=== PATIENT | female | born 1980 | race Caucasian/White ===

== ENCOUNTER 2018-09-23 11:27 | Observation (INO) | payer BC ==
[2018-09-23 12:08] LABS: CHLORIDE,CL 103 mmol/L (98-107); SODIUM,NA 137 mmol/L (136-145)
[2018-09-23] MEDS ORDERED: Ketorolac 60 MG/2 ML SDV IM ONE (12:21)
--- NOTE | 2018-09-23 12:40 | EDM.PDOC ---
ED HPI GENERAL MEDICAL PROBLEM - General Chief Complaint: General Stated Complaint: left flank/rib sharp pain Time Seen by Provider: 09/23/18 12:04 Source of Information: Reports: Patient History Limitations: Reports: No Limitations - History of Present Illness INITIAL COMMENTS - FREE TEXT/NARRATIVE: Patient presents to ER with complaint of left sided back pain. Points to left posterior lower ribs, below left scapula, as site of pain. Slightly worse with deep inspiration. Changing position/moving arms/sitting up from lying down has no effect on the pain. Eating/drinking also has no effect. Describes pain as "hot" and constant. No radiation of pain. Has had on/off mild discomfort in this same area for a year or more, at same time she has been having difficulty urinating easily. Feels like she sometimes has to force the urine out. Had US study of bladder that shows bladder wall thickening per patient, also had unremarkable noncontrast abdominal CT yesterday. Labs/UA yesterday unremarkable except for mild elevation of WBC. Patient has not felt like usual self for 5 days. Says she feels like she is sick. Mild temp elevation yesterday around 100. Feels hot at times. Increased general fatigue. ROS: No acute HEENT changes. She reports frequent sinus congestion which is chronic issue. No headache. No other pain complaints. Resp: no acute respiratory changes such as cough or shortness of breath. Patient is a smoker. Feels wheezy sometimes. CV: no chest pain/palpitations/syncope GI: denies abdominal pain/nausea/emesis. Constipated the last few days but had BM. Has chronic issues with IBS/periodic constipation. : no acute changes from baseline. Denies hematuria/frequency. Hx of kidney stones in past. MS: noted nocturnal muscle cramps lower extremities the past few days. Neuro: no acute changes. Has taken Ibuprofen and Tylenol without any improvement of the pain. Pain is at an 8 currently. Is worse today than yesterday. Treatments [employer]PECT[employer] P[employer]ER: Reports: Acetaminophen, NSAIDS Left Flank Pain Score (Numeric/FACES): 8 - Related Data Allergies Allergy/AdvReac Type Severity Reaction Status Date / Time codeine Allergy Hives Verified 09/23/18 11:28 morphine Allergy Hives Verified 09/23/18 11:28 Home Meds: Home Meds Acetaminophen [Tylenol] 800 mg PO Q4H 09/23/18 [History] Cetirizine HCl [Zyrtec] 10 mg PO DAILY 09/23/18 [History] Fluticasone Propionate [Flonase Allergy Relief] 2 spray AMIRAH DAILY 09/23/18 [ History] Ibuprofen 800 mg PO Q6H 09/23/18 [History] Past Medical History HEENT History: Reports: Other (See Below) (chronic sinus issues) Gastrointestinal History: Reports: Irritable Bowel Syndrome Genitourinary History: Reports: Renal Calculus, Other (See Below) (Feels like she sometimes has to force self to urinate/hard to urinate) Immunologic History: Reports: Other (See Below) (suspected environmental/food intolerances) Social & Family History - Tobacco Use Smoking Status *Q: Current Every Day Smoker Years of Tobacco use: 20 Packs/Tins Daily: 0.6 Second Hand Smoke Exposure: No - Caffeine Use Caffeine Use: Reports: Soda - Alcohol Use Days Per Week of Alcohol Use: 0 - Recreational Drug Use Recreational Drug Use: No ED ROS GENERAL - Review of Systems Review Of Systems: ROS reveals no pertinent complaints other than HPI. ED EXAM, GENERAL - Physical Exam Exam: See Below Exam Limited By: No Limitations General Appearance: Alert, WD/WN, Moderate Distress Eye Exam: Bilateral Eye: EOMI, PERRL Ears: Normal External Exam Nose: No: Nasal Deformity, Nasal Swelling Throat/Mouth: Normal Lips, Normal Voice, No Airway Compromise Head: Atraumatic, Normocephalic Neck: Normal Inspection, Supple, Non-Tender, Full Range of Motion Respiratory/Chest: No Respiratory Distress, Lungs Clear, Normal Breath Sounds, No Accessory Muscle Use, Other (tenderness noted focally with palpation of soft tissue left posterior ribs, below and slightly lateral to left scapula/mid scapular line. Palpation reproduces patient's pain complaint) Cardiovascular: Regular Rate, Rhythm, No Edema, No Murmur GI/Abdominal: Normal Bowel Sounds, Soft, Non-Tender, No Distention (Female) Exam: Deferred Rectal (Female) Exam: Deferred Back Exam: No: CVA Tenderness (L), CVA Tenderness (R), Muscle Spasm, Vertebral Tenderness Extremities: Normal Inspection, Normal Range of Motion, Non-Tender, No Pedal Edema, Normal Capillary Refill Neurological: Alert, Oriented, Normal Cognition, Normal Gait, Slow to Respond Psychiatric: Anxious Skin Exam: Warm, Dry, Intact, Normal Color, No Rash Course - Vital Signs Last Recorded V/S: Last Vital Signs Temp 37.6 C 09/23/18 11:32 Pulse 72 09/23/18 11:51 Resp 15 09/23/18 11:51 BP 120/80 09/23/18 11:51 Pulse Ox 99 09/23/18 11:51 - Orders/Labs/Meds Orders: Active Orders 24 hr Category Date Time Status Chest 2V [CR] Stat Exams 09/23/18 12:23 Taken Chest w Cont [CT] Stat Exams 09/23/18 13:17 Taken Sodium Chloride 0.9% [Saline Flush] Med 09/23/18 12:45 Active 10 ml FLUSH ASDIRECTED PRN Saline Lock Insert [OM.PC] Routine Oth 09/23/18 12:45 Ordered Medication Orders Sodium Chloride (Saline Flush) 10 ml FLUSH ASDIRECTED PRN PRN Reason: Keep Vein Open Labs: Laboratory Tests 09/23/18 09/23/18 09/23/18 Range/Units 11:45 11:49 11:49 WBC 14.9 H (4.0-10.2) K/uL RBC 4.82 (3.77-5.09) M/uL Hgb 15.7 H (11.7-15.5) g/dL Hct 44.4 (34.0-46.0) % MCV 92.1 (84.0-98.0) fL MCH 32.6 (28.2-33.3) pg MCHC 35.4 (31.7-36.0) g/dL RDW 12.6 (11.2-14.1) % Plt Count 227 (150-350) K/uL Neut % (Auto) 76.2 (45.0-80.0) % Lymph % (Auto) 17.3 (10.0-50.0) % [place] % (Auto) 5.6 (2.0-14.0) % Eos % (Auto) 0.6 (0.0-5.0) % Baso % (Auto) 0.3 (0.0-2.0) % Neut # (Auto) 11.32 H (1.40-7.00) K/uL Lymph # (Auto) 2.58 (0.50-3.50) K/uL [place] # (Auto) 0.84 (0.00-1.00) K/uL Eos # (Auto) 0.09 (0.00-0.50) K/uL Baso # (Auto) 0.05 (0.00-0.20) K/uL D-Dimer, Quantitative < 100 (0-400) ng/mL Sodium 137 (136-145) mmol/L Potassium 3.9 (3.5-5.1) mmol/L Chloride 103 (98-107) mmol/L Carbon Dioxide 22.1 (21.0-32.0) mmol/L BUN 13 (7-18) mg/dL Creatinine 0.69 (0.51-1.17) mg/dL Est Cr Clr Drug Dosing 97.52 mL/min Estimated GFR (MDRD) > 60 mL/min Glucose 101 (74-106) mg/dL Calcium 8.5 (8.5-10.1) mg/dL Magnesium (1.8-2.4) mg/dL Total Bilirubin 0.5 (0.2-1.0) mg/dL AST 16 (15-37) U/L ALT 31 (12-78) U/L Alkaline Phosphatase 65 (46-116) IU/L Total Protein 7.0 (6.4-8.2) g/dL Albumin 3.6 (3.4-5.0) g/dL Specimen Type Urine Color Urine Appearance Urine pH (5.0-9.0) Ur Specific Coulter (1.005-1.030) Urine Protein (NEGATIVE) mg/dL Urine Glucose (UA) (NEGATIVE) mg/dL Urine Ketones (NEGATIVE) mg/dL Urine Occult Blood (NEGATIVE) Urine Nitrite (NEGATIVE) Urine Bilirubin (NEGATIVE) Urine Urobilinogen (0.2-1.0) E.U./dL Ur Leukocyte Esterase (NEGATIVE) Urine RBC /HPF Urine WBC /HPF Ur Epithelial Cells /LPF Urine Bacteria (NONE TO FEW) /HPF Urine HCG, Qual 09/23/18 09/23/18 09/23/18 Range/Units 11:50 11:50 12:41 WBC (4.0-10.2) K/uL RBC (3.77-5.09) M/uL Hgb (11.7-15.5) g/dL Hct (34.0-46.0) % MCV (84.0-98.0) fL MCH (28.2-33.3) pg MCHC (31.7-36.0) g/dL RDW (11.2-14.1) % Plt Count (150-350) K/uL Neut % (Auto) (45.0-80.0) % Lymph % (Auto) (10.0-50.0) % [place] % (Auto) (2.0-14.0) % Eos % (Auto) (0.0-5.0) % Baso % (Auto) (0.0-2.0) % Neut # (Auto) (1.40-7.00) K/uL Lymph # (Auto) (0.50-3.50) K/uL [place] # (Auto) (0.00-1.00) K/uL Eos # (Auto) (0.00-0.50) K/uL Baso # (Auto) (0.00-0.20) K/uL D-Dimer, Quantitative (0-400) ng/mL Sodium (136-145) mmol/L Potassium (3.5-5.1) mmol/L Chloride (98-107) mmol/L Carbon Dioxide (21.0-32.0) mmol/L BUN (7-18) mg/dL Creatinine (0.51-1.17) mg/dL Est Cr Clr Drug Dosing mL/min Estimated GFR (MDRD) mL/min Glucose (74-106) mg/dL Calcium (8.5-10.1) mg/dL Magnesium 1.6 L (1.8-2.4) mg/dL Total Bilirubin (0.2-1.0) mg/dL AST (15-37) U/L ALT (12-78) U/L Alkaline Phosphatase (46-116) IU/L Total Protein (6.4-8.2) g/dL Albumin (3.4-5.0) g/dL Specimen Type Urincc Urine Color Light yellow Urine Appearance Clear Urine pH 6.0 (5.0-9.0) Ur Specific Coulter <= 1.005 (1.005-1.030) Urine Protein Negative (NEGATIVE) mg/dL Urine Glucose (UA) Negative (NEGATIVE) mg/dL Urine Ketones Negative (NEGATIVE) mg/dL Urine Occult Blood Trace-intact H (NEGATIVE) Urine Nitrite Negative (NEGATIVE) Urine Bilirubin Negative (NEGATIVE) Urine Urobilinogen 0.2 (0.2-1.0) E.U./dL Ur Leukocyte Esterase Negative (NEGATIVE) Urine RBC 0-5 /HPF Urine WBC 0-5 /HPF Ur Epithelial Cells Rare /LPF Urine Bacteria Rare (NONE TO FEW) /HPF Urine HCG, Qual Negative Meds: Medications Generic Name Dose Route Start Last Admin Trade Name Freq PRN Reason Stop Dose Admin Sodium Chloride 10 ml 09/23/18 12:45 Saline Flush FLUSH ASDIRECTED PRN Keep Vein Open Discontinued Medications Generic Name Dose Route Start Last Admin Trade Name Freq PRN Reason Stop Dose Admin Fentanyl 100 mcg 09/23/18 12:45 09/23/18 13:10 Sublimaze IVPUSH 09/23/18 12:46 100 mcg ONETIME ONE Administration Sodium Chloride 1,000 mls @ 999 mls/hr 09/23/18 13:06 09/23/18 15:41 Normal Saline IV 09/23/18 14:06 999 mls/hr .BOLUS ONE Administration Iopamidol 100 ml 09/23/18 13:39 Isovue-300 (61%) IVPUSH 09/23/18 13:40 ONETIME ONE Ketorolac Tromethamine 60 mg 09/23/18 12:21 09/23/18 12:30 Toradol IM 09/23/18 12:22 60 mg ONETIME ONE Administration Lorazepam 0.5 mg 09/23/18 15:30 09/23/18 15:37 Ativan PO 09/23/18 15:31 0.5 mg ONETIME ONE Administration Magnesium Sulfate/Dextrose 1 gm 09/23/18 12:59 09/23/18 13:16 Magnesium 1 Gm In D5w 100 Ml IV 09/23/18 13:00 1 gm ONETIME ONE Administration Magnesium Sulfate/Dextrose 1 gm 09/23/18 15:26 09/23/18 16:02 Magnesium 1 Gm In D5w 100 Ml IV 09/23/18 15:27 1 gm ONETIME ONE Administration Ondansetron HCl 4 mg 09/23/18 12:45 09/23/18 13:10 Zofran IVPUSH 09/23/18 12:46 4 mg ONETIME ONE Administration Tramadol HCl 100 mg 09/23/18 15:26 09/23/18 15:39 Ultram PO 09/23/18 15:27 100 mg ONETIME ONE Administration - Radiology Interpretation Free Text/Narrative:: Plain chest film appeared unremarkable. CT Results Date: 09/23/18 CT Results Time: 16:24 (Radiology notes changes consistent with bronchiolitis mostly in upper lobes noted. No pneumonia or other acute processes noted. ) - Re-Assessments/Exams Free Text/Narrative Re-Assessment/Exam: 09/23/18 16:33 Patient received Toradol/Fentanyl for her pain. chest xray unremarkable. Given the magnitude of her pain complaint, reported low grade fever, and elevated WBC the possibility of a chest CT was discussed. CBC/Chem/UA/HCG/DDimer unremarkable for the most part other than low Magnesium. Hypomagnesemia would be a factor contributing to patient's complaints of muscle cramps and fatigue. It has also been linked to back pain. While discussing the possible symptoms of low Mg patient volunteered that she had felt on/off numbness of both arms for several weeks, which she had not said during ROS. This also can be linked with low Mg. Magnesium replacement IV initiated. Patient also wished to have CT of chest performed. Prolonged course of time before CT reading was relayed by Radiologist. Patient's pain improved. Tramadol also given. Decision to admit Obs overnight. Will give additional Magnesium and recheck patient's level in AM. Cannot rule out other possible etiologies for patient's spectrum of complaints. She did say that she has had discomfort in this same area of her back for over a year. May need to have MRI to rule out radiculopathy. Departure - Departure Time of Disposition: 16:42 Disposition: Refer to Observation Condition: Good Clinical Impression: Hypomagnesemia, Posterior chest pain - Discharge Information *PRESCRIPTION DRUG MONITORING PROGRAM REVIEWED*: Not Applicable *COPY OF PRESCRIPTION DRUG MONITORING REPORT IN PATIENT [facility]: Not Applicable - Problem List & Annotations (1) Posterior chest pain SNOMED Code(s): 33383779263288 Code(s): R07.89 - OTHER CHEST PAIN Status: Acute Priority: High Current Visit: Yes Onset Date: Unknown Annotation/Comment:: Exacerbation of left sided posterior back pain/near inferior-lateral border of scapula. Signficant worsening over the last few days. Has noted it on/off for a year or more but much more subtle discomfort at those times. Movement does not make pain worse, no history of injury. Able to localize pain with palpation. Suspect musc-sket etiology. Significantly low in Magnesium, which can contribute to back pain. Negative chest CT today. Mild elevation in WBC but no obvious infection identified. May reflect demargination secondary to pain response. Admitted observation for pain control and Mag replacement. (2) Hypomagnesemia SNOMED Code(s): 943834671 Code(s): E83.42 - HYPOMAGNESEMIA Status: Acute Priority: High Current Visit: Yes Annotation/Comment:: Suspect chronic low Magnesium. Mag replacement IV ordered. Recheck level in AM. Low mag could be linked with patient's complaints of fatigue, leg cramps, back pain, and arm paresthesias. - Problem List Review Problem List Initiated/Reviewed/Updated: Yes - My Orders Last 24 Hours: My Active Orders 09/23/18 12:23 Chest 2V [CR] Stat 09/23/18 12:45 Sodium Chloride 0.9% [Saline Flush] 10 ml FLUSH ASDIRECTED PRN Saline Lock Insert [OM.PC] Routine 09/23/18 13:17 Chest w Cont [CT] Stat - Assessment/Plan Admission H&P: Please use this note as an admission H&P Last 24 Hours: My Active Orders 09/23/18 12:23 Chest 2V [CR] Stat 09/23/18 12:45 Sodium Chloride 0.9% [Saline Flush] 10 ml FLUSH ASDIRECTED PRN Saline Lock Insert [OM.PC] Routine 09/23/18 13:17 Chest w Cont [CT] Stat Assessment:: as above Plan: as above. Anticipate 1-2 day stay depending on patient's clinical course/ response to interventions.
[2018-09-23] MEDS ORDERED: fentaNYL 100 MCG/2 ML SDV IVPUSH ONE ×2 (12:45→16:57)
[2018-09-23] MEDS ORDERED: Ondansetron 4 MG/2 ML SDV IVPUSH ONE (12:45)
[2018-09-23] MEDS ORDERED: Sodium Chloride 0.9% 1,000 ML IV ONE (13:06)
[2018-09-23] MEDS ORDERED: Iopamidol 612 MG/ML 100 ML Bottle IVPUSH ONE (13:39)
[2018-09-23] MEDS ORDERED: traMADol 50 MG Tab PO ONE (15:26)
[2018-09-23] MEDS ORDERED: LORazepam 0.5 MG Tab PO ONE (15:30)
[2018-09-23] MEDS ORDERED: Pantoprazole 40 MG Vial IVPUSH ONE (16:58)
[2018-09-23] MEDS ORDERED: Acetaminophen 325 MG Tab PO PRN (17:00)
[2018-09-23] MEDS ORDERED: Ketorolac 30 MG/ML SDV IVPUSH SCH (17:00)
[2018-09-23] MEDS ORDERED: traMADol 50 MG Tab PO PRN (17:00)
[2018-09-23] MEDS: Sodium Chloride 0.9% 10 ML Syringe FLUSH PRN ×4 (17:14→23:23)
[2018-09-23] MEDS: Ketorolac 30 MG/ML SDV IVPUSH SCH (19:08)
[2018-09-23] MEDS: Nicotine 14 MG/24 Hr Patch TRDERM SCH (20:41)
[2018-09-23] MEDS ORDERED: Diazepam 5 MG Tab PO ONE (21:50)
[2018-09-23] MEDS ORDERED: Ondansetron 4 MG/2 ML SDV IVPUSH PRN (22:40)
[2018-09-23] MEDS: fentaNYL 100 MCG/2 ML SDV IVPUSH PRN (23:22)
[2018-09-24] MEDS: Ketorolac 30 MG/ML SDV IVPUSH SCH ×4 (01:04→17:06)
[2018-09-24] MEDS: Sodium Chloride 0.9% 10 ML Syringe FLUSH PRN ×6 (06:32→17:08)
[2018-09-24] MEDS: fentaNYL 100 MCG/2 ML SDV IVPUSH PRN (07:57)
[2018-09-24] MEDS ORDERED: Nicotine 14 MG/24 Hr Patch TRDERM SCH (08:00)
[2018-09-24 08:08] LABS: CHLORIDE,CL 107 mmol/L (98-107); SODIUM,NA 139 mmol/L (136-145)
--- NOTE | 2018-09-24 09:24 | PCM.PN ---
- General Info Date of Service: 09/24/18 Admission Dx/Problem (Free Text): 1. Atypical chest wall pain Functional Status: Reports: Pain Controlled, Tolerating Diet, Ambulating, Urinating, New Symptoms (Abdominal cramping as below), Incentive Spirometry Pain Score: 8 - Review of Systems General: Reports: No Symptoms. Denies: Fever, Weakness, Fatigue, Malaise, Chills, Night Sweats, Appetite HEENT: Reports: Post Nasal Drip, Sinus Congestion, Rhinitis. Denies: Dysphasia , Ear Pain, Eye Pain, Sore Throat, Visual Changes Pulmonary: Reports: Pleuritic Chest Pain (Left posterior), Cough, Wheezing. Denies: Shortness of Breath, Sputum, Hemoptysis Cardiovascular: Reports: Chest Pain (As above). Denies: Palpitations, Dyspnea on Exertion, Orthopnea, PND, Edema, Lightheadedness Gastrointestinal: Reports: Abdominal Pain (Abdominal cramping), Constipation. Denies: Decreased Appetite, Diarrhea, Difficulty Swallowing, Flatus, Hematochezia, Melena, Nausea, Vomiting Genitourinary: Reports: Other (Difficulty with urination- long-term). Denies: Dysuria, Frequency, Burning, Pain, Urgency, Incontinence, Hematuria, Retention, Flank Pain Musculoskeletal: Reports: No Symptoms. Denies: Neck Pain, Shoulder Pain, Arm Pain, Back Pain, Leg Pain Skin: Reports: No Symptoms. Denies: Diaphoresis, Pruritis, Rash Neurological: Reports: No Symptoms. Denies: Confusion, Dizziness, Headache, Numbness, Paresthesia, Tingling, Weakness Psychiatric: Reports: Depression, Anxiety. Denies: Confusion, Agitation, Hallucinations, Suicidal Ideation - Patient Data Vitals - Most Recent: Last Vital Signs Temp 36.6 C 09/24/18 06:00 Pulse 62 09/24/18 06:00 Resp 16 09/24/18 06:00 BP 112/61 09/24/18 06:00 Pulse Ox 99 09/24/18 06:00 Vital Signs - 24 hr 09/23/18 09/23/18 09/23/18 11:32 11:51 12:20 Temperature [ Oral] Temperature [ 37.6 C Temporal] Pulse, 87 72 72 Peripheral [ Left Pulse Oximetry] Respiratory 18 15 16 Rate Blood Pressure 137/79 120/80 106/70 [Left Upper Arm ] O2 Sat by Pulse 100 99 99 Oximetry 09/23/18 09/23/18 09/23/18 12:50 13:20 14:00 Temperature [ Oral] Temperature [ Temporal] Pulse, 82 73 72 Peripheral [ Left Pulse Oximetry] Respiratory 16 16 16 Rate Blood Pressure 104/69 110/69 111/71 [Left Upper Arm ] O2 Sat by Pulse 99 99 98 Oximetry 09/23/18 09/23/18 09/24/18 15:00 16:00 00:00 Temperature [ Oral] Temperature [ 37.1 C 36.7 C Temporal] Pulse, 78 78 64 Peripheral [ Left Pulse Oximetry] Respiratory 14 16 16 Rate Blood Pressure 109/78 109/69 127/79 [Left Upper Arm ] O2 Sat by Pulse 98 99 100 Oximetry 09/24/18 06:00 Temperature [ 36.6 C Oral] Temperature [ Temporal] Pulse, 62 Peripheral [ Left Pulse Oximetry] Respiratory 16 Rate Blood Pressure 112/61 [Left Upper Arm ] O2 Sat by Pulse 99 Oximetry Weight - Most Recent: 82.327 kg I&O - Last 24 Hours: Intake & Output 09/23/18 09/24/18 09/24/18 22:59 06:59 14:59 Intake Total 300 120 Output Total 150 150 Balance 150 -30 Imaging Impressions - Last 24 Hours: Acute abdominal x-rays shows moderate pulmonary obstructive disease with no pulmonary infiltrates, cardiomegaly, CHF, or pneumothorax. Note moderate to severe diffuse stool with nonspecific bowel gaseous pattern with no fluid levels , free air, ileus, or obstruction. No evidence of significant intra-abdominal calcifications. Lab Results Last 24 Hours: Laboratory Results - last 24 hr 09/23/18 09/23/18 09/23/18 Range/Units 11:45 11:45 11:49 WBC 14.9 H (4.0-10.2) K/uL RBC 4.82 (3.77-5.09) M/uL Hgb 15.7 H (11.7-15.5) g/dL Hct 44.4 (34.0-46.0) % MCV 92.1 (84.0-98.0) fL MCH 32.6 (28.2-33.3) pg MCHC 35.4 (31.7-36.0) g/dL RDW 12.6 (11.2-14.1) % Plt Count 227 (150-350) K/uL Neut % (Auto) 76.2 (45.0-80.0) % Lymph % (Auto) 17.3 (10.0-50.0) % [place] % (Auto) 5.6 (2.0-14.0) % Eos % (Auto) 0.6 (0.0-5.0) % Baso % (Auto) 0.3 (0.0-2.0) % Neut # (Auto) 11.32 H (1.40-7.00) K/uL Lymph # (Auto) 2.58 (0.50-3.50) K/uL [place] # (Auto) 0.84 (0.00-1.00) K/uL Eos # (Auto) 0.09 (0.00-0.50) K/uL Baso # (Auto) 0.05 (0.00-0.20) K/uL D-Dimer, Quantitative < 100 (0-400) ng/mL Sodium (136-145) mmol/L Potassium (3.5-5.1) mmol/L Chloride (98-107) mmol/L Carbon Dioxide (21.0-32.0) mmol/L BUN (7-18) mg/dL Creatinine (0.51-1.17) mg/dL Est Cr Clr Drug Dosing mL/min Estimated GFR (MDRD) mL/min Glucose (74-106) mg/dL Calcium (8.5-10.1) mg/dL Magnesium (1.8-2.4) mg/dL Total Bilirubin (0.2-1.0) mg/dL AST (15-37) U/L ALT (12-78) U/L Alkaline Phosphatase (46-116) IU/L Troponin I 0.000 (0.000-0.056) ng/mL Total Protein (6.4-8.2) g/dL Albumin (3.4-5.0) g/dL Vitamin B12 (193-986) pg/mL Folate (8.6-58.9) ng/mL Specimen Type Urine Color Urine Appearance Urine pH (5.0-9.0) Ur Specific [place] (1.005-1.030) Urine Protein (NEGATIVE) mg/dL Urine Glucose (UA) (NEGATIVE) mg/dL Urine Ketones (NEGATIVE) mg/dL Urine Occult Blood (NEGATIVE) Urine Nitrite (NEGATIVE) Urine Bilirubin (NEGATIVE) Urine Urobilinogen (0.2-1.0) E.U./dL Ur Leukocyte Esterase (NEGATIVE) Urine RBC /HPF Urine WBC /HPF Ur Epithelial Cells /LPF Urine Bacteria (NONE TO FEW) /HPF Urine HCG, Qual Urine Opiates Screen (NEGATIVE) Urine Methadone Screen (NEGATIVE) U Acetaminophen Screen (NEGATIVE) Ur Barbiturates Screen (NEGATIVE) Ur Tricyclics Screen (NEGATIVE) Ur Phencyclidine Scrn (NEGATIVE) Ur Amphetamine Screen (NEGATIVE) U Methamphetamines Scrn (NEGATIVE) U Benzodiazepines Scrn (NEGATIVE) U Cocaine Metab Screen (NEGATIVE) U Marijuana (THC) Screen (NEGATIVE) 09/23/18 09/23/18 09/23/18 Range/Units 11:49 11:50 11:50 WBC (4.0-10.2) K/uL RBC (3.77-5.09) M/uL Hgb (11.7-15.5) g/dL Hct (34.0-46.0) % MCV (84.0-98.0) fL MCH (28.2-33.3) pg MCHC (31.7-36.0) g/dL RDW (11.2-14.1) % Plt Count (150-350) K/uL Neut % (Auto) (45.0-80.0) % Lymph % (Auto) (10.0-50.0) % [place] % (Auto) (2.0-14.0) % Eos % (Auto) (0.0-5.0) % Baso % (Auto) (0.0-2.0) % Neut # (Auto) (1.40-7.00) K/uL Lymph # (Auto) (0.50-3.50) K/uL [place] # (Auto) (0.00-1.00) K/uL Eos # (Auto) (0.00-0.50) K/uL Baso # (Auto) (0.00-0.20) K/uL D-Dimer, Quantitative (0-400) ng/mL Sodium 137 (136-145) mmol/L Potassium 3.9 (3.5-5.1) mmol/L Chloride 103 (98-107) mmol/L Carbon Dioxide 22.1 (21.0-32.0) mmol/L BUN 13 (7-18) mg/dL Creatinine 0.69 (0.51-1.17) mg/dL Est Cr Clr Drug Dosing 97.52 mL/min Estimated GFR (MDRD) > 60 mL/min Glucose 101 (74-106) mg/dL Calcium 8.5 (8.5-10.1) mg/dL Magnesium 1.6 L (1.8-2.4) mg/dL Total Bilirubin 0.5 (0.2-1.0) mg/dL AST 16 (15-37) U/L ALT 31 (12-78) U/L Alkaline Phosphatase 65 (46-116) IU/L Troponin I (0.000-0.056) ng/mL Total Protein 7.0 (6.4-8.2) g/dL Albumin 3.6 (3.4-5.0) g/dL Vitamin B12 (193-986) pg/mL Folate (8.6-58.9) ng/mL Specimen Type Urincc Urine Color Light yellow Urine Appearance Clear Urine pH 6.0 (5.0-9.0) Ur Specific [place] <= 1.005 (1.005-1.030) Urine Protein Negative (NEGATIVE) mg/dL Urine Glucose (UA) Negative (NEGATIVE) mg/dL Urine Ketones Negative (NEGATIVE) mg/dL Urine Occult Blood Trace-intact H (NEGATIVE) Urine Nitrite Negative (NEGATIVE) Urine Bilirubin Negative (NEGATIVE) Urine Urobilinogen 0.2 (0.2-1.0) E.U./dL Ur Leukocyte Esterase Negative (NEGATIVE) Urine RBC 0-5 /HPF Urine WBC 0-5 /HPF Ur Epithelial Cells Rare /LPF Urine Bacteria Rare (NONE TO FEW) /HPF Urine HCG, Qual Urine Opiates Screen (NEGATIVE) Urine Methadone Screen (NEGATIVE) U Acetaminophen Screen (NEGATIVE) Ur Barbiturates Screen (NEGATIVE) Ur Tricyclics Screen (NEGATIVE) Ur Phencyclidine Scrn (NEGATIVE) Ur Amphetamine Screen (NEGATIVE) U Methamphetamines Scrn (NEGATIVE) U Benzodiazepines Scrn (NEGATIVE) U Cocaine Metab Screen (NEGATIVE) U Marijuana (THC) Screen (NEGATIVE) 09/23/18 09/23/18 09/24/18 Range/Units 12:41 22:41 00:40 WBC (4.0-10.2) K/uL RBC (3.77-5.09) M/uL Hgb (11.7-15.5) g/dL Hct (34.0-46.0) % MCV (84.0-98.0) fL MCH (28.2-33.3) pg MCHC (31.7-36.0) g/dL RDW (11.2-14.1) % Plt Count (150-350) K/uL Neut % (Auto) (45.0-80.0) % Lymph % (Auto) (10.0-50.0) % [place] % (Auto) (2.0-14.0) % Eos % (Auto) (0.0-5.0) % Baso % (Auto) (0.0-2.0) % Neut # (Auto) (1.40-7.00) K/uL Lymph # (Auto) (0.50-3.50) K/uL [place] # (Auto) (0.00-1.00) K/uL Eos # (Auto) (0.00-0.50) K/uL Baso # (Auto) (0.00-0.20) K/uL D-Dimer, Quantitative (0-400) ng/mL Sodium (136-145) mmol/L Potassium (3.5-5.1) mmol/L Chloride (98-107) mmol/L Carbon Dioxide (21.0-32.0) mmol/L BUN (7-18) mg/dL Creatinine (0.51-1.17) mg/dL Est Cr Clr Drug Dosing mL/min Estimated GFR (MDRD) mL/min Glucose (74-106) mg/dL Calcium (8.5-10.1) mg/dL Magnesium (1.8-2.4) mg/dL Total Bilirubin (0.2-1.0) mg/dL AST (15-37) U/L ALT (12-78) U/L Alkaline Phosphatase (46-116) IU/L Troponin I (0.000-0.056) ng/mL Total Protein (6.4-8.2) g/dL Albumin (3.4-5.0) g/dL Vitamin B12 (193-986) pg/mL Folate (8.6-58.9) ng/mL Specimen Type Urinvoid Urine Color Yellow Urine Appearance Clear Urine pH 5.5 (5.0-9.0) Ur Specific [place] 1.025 (1.005-1.030) Urine Protein Negative (NEGATIVE) mg/dL Urine Glucose (UA) Negative (NEGATIVE) mg/dL Urine Ketones Negative (NEGATIVE) mg/dL Urine Occult Blood Trace-lysed H (NEGATIVE) Urine Nitrite Negative (NEGATIVE) Urine Bilirubin Negative (NEGATIVE) Urine Urobilinogen 0.2 (0.2-1.0) E.U./dL Ur Leukocyte Esterase Negative (NEGATIVE) Urine RBC Not seen /HPF Urine WBC Not seen /HPF Ur Epithelial Cells Rare /LPF Urine Bacteria Rare (NONE TO FEW) /HPF Urine HCG, Qual Negative Urine Opiates Screen Negative (NEGATIVE) Urine Methadone Screen Negative (NEGATIVE) U Acetaminophen Screen Negative (NEGATIVE) Ur Barbiturates Screen Negative (NEGATIVE) Ur Tricyclics Screen Negative (NEGATIVE) Ur Phencyclidine Scrn Negative (NEGATIVE) Ur Amphetamine Screen Negative (NEGATIVE) U Methamphetamines Scrn Negative (NEGATIVE) U Benzodiazepines Scrn Negative (NEGATIVE) U Cocaine Metab Screen Negative (NEGATIVE) U Marijuana (THC) Screen Negative (NEGATIVE) 09/24/18 09/24/18 Range/Units 07:15 07:15 WBC 10.9 H (4.0-10.2) K/uL RBC 3.97 (3.77-5.09) M/uL Hgb 12.8 D (11.7-15.5) g/dL Hct 37.8 (34.0-46.0) % MCV 95.2 D (84.0-98.0) fL MCH 32.2 (28.2-33.3) pg MCHC 33.9 (31.7-36.0) g/dL RDW 12.8 (11.2-14.1) % Plt Count 186 (150-350) K/uL Neut % (Auto) 56.0 (45.0-80.0) % Lymph % (Auto) 33.4 (10.0-50.0) % [place] % (Auto) 7.6 (2.0-14.0) % Eos % (Auto) 2.5 (0.0-5.0) % Baso % (Auto) 0.5 (0.0-2.0) % Neut # (Auto) 6.08 (1.40-7.00) K/uL Lymph # (Auto) 3.62 H (0.50-3.50) K/uL [place] # (Auto) 0.83 (0.00-1.00) K/uL Eos # (Auto) 0.27 (0.00-0.50) K/uL Baso # (Auto) 0.05 (0.00-0.20) K/uL D-Dimer, Quantitative (0-400) ng/mL Sodium 139 (136-145) mmol/L Potassium 4.7 (3.5-5.1) mmol/L Chloride 107 (98-107) mmol/L Carbon Dioxide 25.3 (21.0-32.0) mmol/L BUN 17 (7-18) mg/dL Creatinine 0.77 (0.51-1.17) mg/dL Est Cr Clr Drug Dosing 87.39 mL/min Estimated GFR (MDRD) > 60 mL/min Glucose 94 (74-106) mg/dL Calcium 8.3 L (8.5-10.1) mg/dL Magnesium 1.7 L (1.8-2.4) mg/dL Total Bilirubin 0.2 (0.2-1.0) mg/dL AST 14 L (15-37) U/L ALT 25 (12-78) U/L Alkaline Phosphatase 56 (46-116) IU/L Troponin I (0.000-0.056) ng/mL Total Protein 5.5 L (6.4-8.2) g/dL Albumin 2.8 L (3.4-5.0) g/dL Vitamin B12 430 (193-986) pg/mL Folate 11.7 (8.6-58.9) ng/mL Specimen Type Urine Color Urine Appearance Urine pH (5.0-9.0) Ur Specific [place] (1.005-1.030) Urine Protein (NEGATIVE) mg/dL Urine Glucose (UA) (NEGATIVE) mg/dL Urine Ketones (NEGATIVE) mg/dL Urine Occult Blood (NEGATIVE) Urine Nitrite (NEGATIVE) Urine Bilirubin (NEGATIVE) Urine Urobilinogen (0.2-1.0) E.U./dL Ur Leukocyte Esterase (NEGATIVE) Urine RBC /HPF Urine WBC /HPF Ur Epithelial Cells /LPF Urine Bacteria (NONE TO FEW) /HPF Urine HCG, Qual Urine Opiates Screen (NEGATIVE) Urine Methadone Screen (NEGATIVE) U Acetaminophen Screen (NEGATIVE) Ur Barbiturates Screen (NEGATIVE) Ur Tricyclics Screen (NEGATIVE) Ur Phencyclidine Scrn (NEGATIVE) Ur Amphetamine Screen (NEGATIVE) U Methamphetamines Scrn (NEGATIVE) U Benzodiazepines Scrn (NEGATIVE) U Cocaine Metab Screen (NEGATIVE) U Marijuana (THC) Screen (NEGATIVE) Chris Results Last 24 Hours: None Med Orders - Current: Current Medications Acetaminophen (Tylenol) 650 mg PO Q6H PRN PRN Reason: Pain Fentanyl (Sublimaze) 100 mcg IVPUSH Q4H PRN PRN Reason: Pain (severe 7-10) Last Admin: 09/24/18 07:57 Dose: 100 mcg Ketorolac Tromethamine (Toradol) 30 mg IVPUSH Q6H ETELVINA Stop: 09/28/18 18:01 Last Admin: 09/24/18 06:31 Dose: 30 mg Nicotine (Habitrol) 14 mg TRDERM BEDTIME ETELVINA Last Admin: 09/23/18 20:41 Dose: 14 mg Ondansetron HCl (Zofran) 4 mg IVPUSH Q6H PRN PRN Reason: Nausea/Vomiting Last Admin: 09/23/18 23:22 Dose: 4 mg Sodium Chloride (Saline Flush) 10 ml FLUSH ASDIRECTED PRN PRN Reason: Keep Vein Open Last Admin: 09/24/18 07:58 Dose: 10 ml Tramadol HCl (Ultram) 50 mg PO Q6H PRN PRN Reason: Pain Last Admin: 09/23/18 21:04 Dose: 50 mg Discontinued Medications Diazepam (Valium.) 5 mg PO ONETIME ONE Stop: 09/23/18 21:51 Last Admin: 09/23/18 22:31 Dose: 5 mg Fentanyl (Sublimaze) 100 mcg IVPUSH ONETIME ONE Stop: 09/23/18 12:46 Last Admin: 09/23/18 13:10 Dose: 100 mcg Fentanyl (Sublimaze) 100 mcg IVPUSH ONETIME ONE Stop: 09/23/18 16:58 Last Admin: 09/23/18 17:11 Dose: 100 mcg Sodium Chloride (Normal Saline) 1,000 mls @ 999 mls/hr IV .BOLUS ONE Stop: 09/23/18 14:06 Last Admin: 09/23/18 15:41 Dose: 999 mls/hr Iopamidol (Isovue-300 (61%)) 100 ml IVPUSH ONETIME ONE Stop: 09/23/18 13:40 Last Admin: 09/23/18 16:56 Dose: Not Given Ketorolac Tromethamine (Toradol) 60 mg IM ONETIME ONE Stop: 09/23/18 12:22 Last Admin: 09/23/18 12:30 Dose: 60 mg Ketorolac Tromethamine (Toradol) 30 mg IVPUSH Q6H ETELVINA Stop: 09/28/18 16:58 Last Admin: 09/23/18 17:33 Dose: Not Given Lorazepam (Ativan) 0.5 mg PO ONETIME ONE Stop: 09/23/18 15:31 Last Admin: 09/23/18 15:37 Dose: 0.5 mg Magnesium Sulfate/Dextrose (Magnesium 1 Gm In D5w 100 Ml) 1 gm IV ONETIME ONE Stop: 09/23/18 13:00 Last Admin: 09/23/18 13:16 Dose: 1 gm Magnesium Sulfate/Dextrose (Magnesium 1 Gm In D5w 100 Ml) 1 gm IV ONETIME ONE Stop: 09/23/18 15:27 Last Admin: 09/23/18 16:02 Dose: 1 gm Nicotine (Habitrol) 14 mg TRDERM DAILY [facility] Ondansetron HCl (Zofran) 4 mg IVPUSH ONETIME ONE Stop: 09/23/18 12:46 Last Admin: 09/23/18 13:10 Dose: 4 mg Pantoprazole Sodium (Protonix Iv) 40 mg IVPUSH ONETIME ONE Stop: 09/23/18 16:59 Last Admin: 09/23/18 17:11 Dose: 40 mg Tramadol HCl (Ultram) 100 mg PO ONETIME ONE Stop: 09/23/18 15:27 Last Admin: 09/23/18 15:39 Dose: 100 mg - Exam Quality Assessment: DVT Prophylaxis. No: Supplemental Oxygen, Central Line/PICC , Urine Catheter, Skin Breakdown, Restraints General: Alert, Oriented, Cooperative, No Acute Distress HEENT: Pupils Equal, Pupils Reactive, EOMI, Mucous Membr. Moist/[place]. No: Scleral Icterus Neck: Supple, Trachea Midline, No JVD, No Thyromegaly. No: Lymphadenopathy Lungs: Normal Respiratory Effort, Rhonchi (Mild diffuse bilateral), Wheezing ( Mild diffuse bilateral). No: Rales, Rub, Stridor Cardiovascular: Regular Rate, Regular Rhythm, No Murmurs, Irregular Rhythm. No : Gallops, Rubs GI/Abdominal Exam: Normal Bowel Sounds, Soft, Non-Tender, No Organomegaly, No Distention, No Abnormal Bruit, No Mass, Pelvis Stable, Other (Obese). No: Guarding (Female) Exam: Deferred Back Exam: Normal Inspection, Full Range of Motion. No: CVA Tenderness (L), CVA Tenderness (R), Muscle Spasm Extremities: Normal Inspection, Normal Range of Motion, Non-Tender, No Pedal Edema, Normal Capillary Refill. No: Colleen's Sign Peripheral Pulses: 2+: Radial (L), Radial (R), Dorsalis Pedis (L), Dorsalis Pedis (R) Skin: Warm, Dry, Intact. No: Ecchymosis Neurological: No New Focal Deficit, Other (No clinical orthostasis) Psy/Mental Status: Alert, Anxious (Moderate), Depressed (Adequate eye contact). No: Agitated, Hallucinations, Withdrawal Symptoms - Problem List & Annotations (1) Posterior chest pain SNOMED Code(s): 31584953173727 Code(s): R07.89 - OTHER CHEST PAIN Status: Acute Priority: High Current Visit: Yes Onset Date: Unknown Annotation/Comment:: Posterior chest wall pain is reproducible and likely consistent with some pleurisy. Exacerbation of left sided posterior back pain/near inferior-lateral border of scapula. Signficant worsening over the last few days. Has noted it on/off for a year or more but much more subtle discomfort at those times. Movement does not make pain worse, no history of injury. CTA of the chest yesterday was negative. Suspect musc-sket etiology. Significantly low in Magnesium, which can contribute to back pain. She was placed in observation status yesterday for pain control and Mag replacement. Various therapeutic options were discussed with the patient, who is requesting further hospitalization for treatment of her bronchitis and possible beginning pneumonia with negative chest x-rays as above. (2) Hypomagnesemia SNOMED Code(s): 432622992 Code(s): E83.42 - HYPOMAGNESEMIA Status: Acute Priority: High Current Visit: Yes Onset Date: 09/24/18 Annotation/Comment:: Suspect chronic low Magnesium. Magnesium sulfate IV infusions 2 given during initial phases of hospitalization with initiation of oral magnesium oxide today. Repeat magnesium level in the a.m. Low mag could be linked with patient's complaints of fatigue, leg cramps, back pain, and arm paresthesias. (3) Bronchitis SNOMED Code(s): 57476500 Code(s): J40 - BRONCHITIS, NOT SPECIFIED ACUTE OR CHRONIC Status: Acute Priority: Medium Current Visit: Yes Onset Date: ~09/23/18 Annotation/ Comment:: WBCs improved from admission. Note significant wheezing and rhonchi today. Various therapeutic options were discussed with the patient, who is requesting further hospitalization as below. Initiate IV Rocephin, oral Bactrim DS, and aggressive triple nebulizer treatment as below. Patient is afebrile today. Attempt to obtain sputum specimen. (4) Reactive airway disease SNOMED Code(s): 261988439007 Code(s): J45.909 - UNSPECIFIED ASTHMA, UNCOMPLICATED Status: Acute Priority: High Current Visit: Yes Onset Date: ~09/24/18 Qualifiers: Asthma severity: moderate Asthma complication type: with acute exacerbation Annotation/Comment:: Evidence of pulmonary obstructive disease by today's x- rays. Additional wheezing and rhonchi today with patient benefiting from PFTs on an outpatient basis once current symptoms resolve. Initiate triple nebulizer therapy. Consider IM Depo-Medrol at discharge. Continue to observe closely by regular provider. (5) IBS (irritable bowel syndrome) SNOMED Code(s): 83453745 Code(s): K58.9 - IRRITABLE BOWEL SYNDROME WITHOUT DIARRHEA Status: Chronic Current Visit: No Qualifiers: Irritable bowel syndrome type: with constipation Qualified Code(s): K58.1 - Irritable bowel syndrome with constipation Annotation/Comment:: Nonspecific abdominal pain likely secondary to exacerbation of her chronic constipation from IV fentanyl therapy, which will be discontinued at this time. Magnesium citrate and MiraLAX therapy will be initiated. Additional IV Pepcid and IV Protonix as GI prophylaxis. Today's abdominal x-ray showed significant stool retention. Patient is in agreement with this treatment plan. Further GI workup depending on her clinical course. Note no colic type symptoms as above. (6) Tobacco abuse counseling SNOMED Code(s): 275068952, 441618411, 705478305 Code(s): Z71.6 - TOBACCO ABUSE COUNSELING Status: Chronic Priority: Medium Current Visit: Yes Annotation/Comment:: Tobacco cessation information and be provided at discharge. Nicotinic patch therapy during this hospitalization. Tobacco cessation strongly encouraged especially in light of current symptoms and evidence of pulmonary obstructive disease by today's x- rays. (7) Mixed anxiety depressive disorder SNOMED Code(s): 446943874 Code(s): F41.8 - OTHER SPECIFIED ANXIETY DISORDERS Status: Acute Priority : Medium Current Visit: Yes Onset Date: 09/24/18 Annotation/Comment:: Somewhat anxious and depressed affect today with no current medical therapy. Continue to observe closely by regular provider (8) History of urinary hesitancy SNOMED Code(s): 927234121 Code(s): Z87.448 - PERSONAL HISTORY OF OTHER DISEASES OF URINARY SYSTEM Status: Chronic Priority: Medium Current Visit: Yes Annotation/Comment:: Problems with initiation of urination in recent months with apparent poor stream , etc. Note previous history of urolithiasis with no current colic, hematuria, or true UTI symptoms with negative UA on admission. Her regular provider has apparently recommended a Pap smear and pelvic exam to rule out beginning uterine prolapse. Recent CT scan of the abdomen and pelvis without contrast on did not show any abnormalities. Bilateral renal ultrasounds on 07/01/18 showed borderline cystitis but no evidence of bladder stone, urolithiasis, hydronephrosis, etc. Consider urology consultation for possible cystoscopy. (9) Hypocalcemia SNOMED Code(s): 7087327 Code(s): E83.51 - HYPOCALCEMIA Status: Acute Priority: Medium Current Visit: Yes Onset Date: 09/24/18 Annotation/Comment:: Not present on admission. Observe for now. (10) Hypoalbuminemia SNOMED Code(s): 123624002 Code(s): E88.09 - OTH DISORDERS OF PLASMA-PROTEIN METABOLISM, NEC Status: Acute Priority: Medium Current Visit: Yes Onset Date: 09/24/18 Annotation/Comment:: Not present on admission. Observe for now. - Problem List Review Problem List Initiated/Reviewed/Updated: Yes - Assessment Assessment:: As above - Plan Plan:: As above. Extensive precautions were given to the patient, who is in agreement with the treatment plan. Dr. José resumes care in the a.m. with probable discharge to home tomorrow versus change to inpatient/acute care depending on her clinical course. [employer] work excuse form for current hospitalization was faxed yesterday on admission.
[2018-09-24] MEDS ORDERED: Albuterol/Ipratropium 3.0-0.5 MG/3 ML Neb Soln NEB PRN (09:34)
[2018-09-24] MEDS ORDERED: Magnesium Oxide 400 MG Tab PO SCH (09:45)
[2018-09-24] MEDS ORDERED: Temazepam 15 MG Cap PO PRN (09:45)
[2018-09-24] MEDS ORDERED: Polyethylene Glycol 3350 Powder 17 GM Packet PO ONE (09:56)
[2018-09-24] MEDS ORDERED: Magnesium Citrate Solution 296 ML Bottle PO ONE (09:56)
[2018-09-24] MEDS ORDERED: Albuterol 0.083% 2.5 MG/3 ML Neb Soln INH PRN (10:00)
[2018-09-24] MEDS ORDERED: Acetaminophen 325 MG Tab PO PRN (10:00)
[2018-09-24] MEDS: Dextromethorphan/guaiFENesin 600-30 MG Tab.ER PO SCH ×2 (10:11→17:06)
[2018-09-24] MEDS: Sulfamethoxazole/Trimethoprim 800-160 MG Tab PO SCH ×2 (10:11→17:07)
[2018-09-24] MEDS: Budesonide 0.5 MG/2 ML Neb Susp NEB SCH ×2 (10:12→21:41)
[2018-09-24] MEDS: Famotidine 20 MG/2 ML SDV IVPUSH SCH ×2 (10:12→17:06)
[2018-09-24] MEDS: Albuterol/Ipratropium 3.0-0.5 MG/3 ML Neb Soln NEB SCH ×3 (10:12→21:41)
[2018-09-24] MEDS: Pantoprazole 40 MG Vial IVPUSH SCH ×2 (10:15→21:46)
[2018-09-24] MEDS: cefTRIAXone 1 GM in Sodium Chloride 0.9% 100 ML IV SCH ×2 (10:16→22:47)
[2018-09-24] MEDS: Magnesium Oxide 400 MG Tab PO SCH (17:06)
[2018-09-24] MEDS ORDERED: REMOVE NICOTINE TRDERM SCH (20:00)
[2018-09-24] MEDS: Nicotine 14 MG/24 Hr Patch TRDERM SCH (21:41)
[2018-09-25] MEDS: Ketorolac 30 MG/ML SDV IVPUSH SCH ×2 (01:26→07:48)
[2018-09-25] MEDS: Albuterol/Ipratropium 3.0-0.5 MG/3 ML Neb Soln NEB SCH ×2 (01:26→07:49)
[2018-09-25] MEDS: Sodium Chloride 0.9% 10 ML Syringe FLUSH PRN ×2 (01:27→07:54)
[2018-09-25 07:35] LABS: CHLORIDE,CL 107 mmol/L (98-107); SODIUM,NA 139 mmol/L (136-145)
[2018-09-25] MEDS: Sulfamethoxazole/Trimethoprim 800-160 MG Tab PO SCH (07:49)
[2018-09-25] MEDS: Budesonide 0.5 MG/2 ML Neb Susp NEB SCH (07:49)
[2018-09-25] MEDS: Magnesium Oxide 400 MG Tab PO SCH (07:49)
[2018-09-25] MEDS: Famotidine 20 MG/2 ML SDV IVPUSH SCH (07:49)
[2018-09-25] MEDS: Dextromethorphan/guaiFENesin 600-30 MG Tab.ER PO SCH (07:50)
--- NOTE | 2018-09-25 10:30 | PCM.DCSUM1 ---
Discharge Summary - Hospital Course Brief History: admitted for evaluation of left posterior/inferior rib pain Diagnosis: Stroke: No - Discharge Data Discharge Date: 09/25/18 Discharge Disposition: Home, Self-Care 01 Condition: Good - Discharge Diagnosis/Problem(s) (1) Posterior chest pain SNOMED Code(s): 34569916940297 ICD Code: R07.89 - OTHER CHEST PAIN Status: Acute Priority: High Current Visit: Yes Onset Date: Unknown Problem Details: Posterior chest wall pain is reproducible and may be consistent with some pleurisy. Exacerbation of left sided posterior back pain/near inferior-lateral border of scapula. Signficant worsening over the last few days. Today she has some discomfort also left lower rib margin anteriorly. No history of Zoster. No current rash. Discussed Zoster with pt, but again this pain has been around for almost a year and currently does not suggest Zoster prodrome. Has noted it on/off for a year or more but much more subtle discomfort at those times. Movement does not make pain worse, no history of injury. CTA of the chest yesterday was negative. Suspect musc-skel component. Significantly low in Magnesium, which can contribute to back pain. She was placed in observation status for pain control and Mag replacement. CT of chest showed bronchiolitis left upper lung/right lung but no other chagnes. Negative chest x-ray. (2) Hypomagnesemia SNOMED Code(s): 782832022 ICD Code: E83.42 - HYPOMAGNESEMIA Status: Acute Priority: High Current Visit: Yes Onset Date: 09/24/18 Problem Details: Suspect chronic low Magnesium. Magnesium sulfate IV infusions 2 given during initial phases of hospitalization with initiation of oral magnesium oxide yesterday. Level today is low end of normal. Low mag could be linked with patient's complaints of fatigue, leg cramps, back pain, and arm paresthesias. Patient reports that leg cramps have resolved since receiving the magnesium. (3) Bronchitis SNOMED Code(s): 13832503 ICD Code: J40 - BRONCHITIS, NOT SPECIFIED ACUTE OR CHRONIC Status: Acute Priority: Medium Current Visit: Yes Onset Date: ~09/23/18 Problem Details: WBC has normalized. Observed to be improving prior to initiation of antibiotic therapy. Wheezing and rhonchi noted yesterday morning. Lung sounds clear today. Initiated IV Rocephin, oral Bactrim DS, and aggressive triple nebulizer yesterday. Patient afebrile since admission. Will discharge home on oral Bactrim at discharge as well as albuterol MDI (4) Hypoalbuminemia SNOMED Code(s): 770378257 ICD Code: E88.09 - OTH DISORDERS OF PLASMA-PROTEIN METABOLISM, NEC Status: Acute Priority: Medium Current Visit: Yes Onset Date: 09/24/18 Problem Details: Not present on admission. To follow up with primary provider (5) Hypocalcemia SNOMED Code(s): 1856283 ICD Code: E83.51 - HYPOCALCEMIA Status: Acute Priority: Medium Current Visit: Yes Onset Date: 09/24/18 Problem Details: Not present on admission. To follow up with primary provider (6) Mixed anxiety depressive disorder SNOMED Code(s): 896554720 ICD Code: F41.8 - OTHER SPECIFIED ANXIETY DISORDERS Status: Acute Priority: Medium Current Visit: Yes Onset Date: 09/24/18 Problem Details: Somewhat anxious and depressed affect today with no current medical therapy. Continue to observe closely by regular provider (7) Reactive airway disease SNOMED Code(s): 369993218367 ICD Code: J45.909 - UNSPECIFIED ASTHMA, UNCOMPLICATED Status: Acute Priority: High Current Visit: Yes Onset Date: ~09/24/18 Problem Details: Suspect COPD present. Continue to observe closely by regular provider. Qualifiers: Asthma severity: moderate Asthma complication type: with acute exacerbation (8) History of urinary hesitancy SNOMED Code(s): 705050446 ICD Code: Z87.448 - PERSONAL HISTORY OF OTHER DISEASES OF URINARY SYSTEM Status: Chronic Priority: Medium Current Visit: Yes Problem Details: Problems with initiation of urination in recent months with apparent poor stream , etc. Note previous history of urolithiasis with no current colic, hematuria, or true UTI symptoms with negative UA on admission. Her regular provider has apparently recommended a Pap smear and pelvic exam to rule out beginning uterine prolapse. Recent CT scan of the abdomen and pelvis without contrast on did not show any abnormalities. Bilateral renal ultrasounds on 07/01/18 showed borderline cystitis but no evidence of bladder stone, urolithiasis, hydronephrosis, etc. Consider urology consultation for possible cystoscopy. (9) Tobacco abuse counseling SNOMED Code(s): 574185353, 780671586, 528123526 ICD Code: Z71.6 - TOBACCO ABUSE COUNSELING Status: Chronic Priority: Medium Current Visit: Yes Problem Details: Tobacco cessation discussed with patient. She is not currently interested in quitting. Nicotinic patch therapy during this hospitalization. Tobacco cessation strongly encouraged especially in light of current symptoms and evidence of pulmonary obstructive disease by yesterday's x-rays. (10) IBS (irritable bowel syndrome) SNOMED Code(s): 50925830 ICD Code: K58.9 - IRRITABLE BOWEL SYNDROME WITHOUT DIARRHEA Status: Chronic Current Visit: No Problem Details: Repeat xrays today show that some stool is still present after MagCitrate treatment. Patient complaining of bloating since breakfast. Air noted on xray, no air/fluid levels or signs of obstruction noted. Long history of IBS per patient Qualifiers: Irritable bowel syndrome type: with constipation Qualified Code(s): K58.1 - Irritable bowel syndrome with constipation - Patient Summary/Data Hospital Course: Patient had improvement of pain during hospitalization but was never pain-free. Treated for constipation and had antibiotics initiated to treat potential of early pneumonia. Remained afebrile. Vital signs stable. Will continue patient on oral antibiotics at time of discharge. PRN Albuterol MDI. Diflucan Rx also given. To follow up with regular provider regarding ongoing issues, including the urinary hesitancy as well as the current pain complaint. - Patient Instructions Diet: Usual Diet as Tolerated (Recommend avoiding wheat/gluten/dairy for one week. ) Activity: As Tolerated Showering/Bathing: May Shower Notify Provider of: Fever, Increased Pain, Nausea and/or Vomiting Other/Special Instructions: Drink 1/2 bottle of MagCitrate today and the other half tomorrow to more fully clear out stool. See if there is any improvement of the left sided pain with this. Make an appointment today to follow up at [facility] on Friday if possible, Friday if [facility] is full. Follow up as needed if you have sudden worsening problems. - Discharge Plan *PRESCRIPTION DRUG MONITORING PROGRAM REVIEWED*: Not Applicable *COPY OF PRESCRIPTION DRUG MONITORING REPORT IN PATIENT [place]AN[place]ES[place]: Not Applicable Prescriptions/Med Rec: Albuterol [Ventolin HFA] 1 puff INH Q4H PRN #1 puff PRN Reason: Cough Fluconazole [Diflucan] 150 mg PO ONETIME #1 tab Magnesium Oxide 400 mg PO BID #60 tablet Sulfamethoxazole/Trimethoprim [Septra DS] 1 tab PO BID #14 tablet traMADol [Ultram] 50 mg PO Q6H PRN #16 tablet PRN Reason: Pain Home Medications: Home Meds Acetaminophen [Tylenol] 800 mg PO Q4H 09/23/18 [History] Cetirizine HCl [Zyrtec] 10 mg PO DAILY 09/23/18 [History] Fluticasone Propionate [Flonase Allergy Relief] 2 spray AMIRAH DAILY 09/23/18 [ History] Ibuprofen 800 mg PO Q6H 09/23/18 [History] Albuterol [Ventolin HFA] 1 puff INH Q4H PRN #1 puff 09/25/18 [Rx] Fluconazole [Diflucan] 150 mg PO ONETIME #1 tab 09/25/18 [Rx] Magnesium Oxide 400 mg PO BID #60 tablet 09/25/18 [Rx] Sulfamethoxazole/Trimethoprim [Septra DS] 1 tab PO BID #14 tablet 09/25/18 [Rx] traMADol [Ultram] 50 mg PO Q6H PRN #16 tablet 09/25/18 [Rx] Patient Handouts: Ketorolac injection, Ondansetron injection, Ceftriaxone injection, Incentive Spirometer, Pantoprazole injection, Tramadol tablets, Pleurisy, Fentanyl injection, Lorazepam tablets, Sulfamethoxazole; Trimethoprim , SMX-TMP tablets, Magnesium Citrate oral solution, Polyethylene Glycol powder Forms: ED Department Discharge Referrals: Sayra Head PA-C [Primary Care Provider] - - Discharge Summary/Plan Comment DC Time >30 min.: No - General Info Date of Service: 09/25/18 Admission Dx/Problem (Free Text: 1. Atypical chest wall pain Subjective Update: Still has approximately 4/10 discomfort in left lower back rib area. Also some abdominal distension/bloating s/p taking the MagCitrate for suspected constipation. Eating and drinking. Functional Status: Reports: Pain Controlled, Tolerating Diet, Ambulating, Urinating. Denies: New Symptoms - Review of Systems General: Reports: No Symptoms HEENT: Reports: No Symptoms Pulmonary: Reports: Cough (only after having a breathing treatment). Denies: Shortness of Breath, Pleuritic Chest Pain, Sputum, Hemoptysis, Wheezing Cardiovascular: Reports: Chest Pain (posterior inferior pain left lower rib area ). Denies: Palpitations, Lightheadedness Gastrointestinal: Reports: Constipation, Diarrhea (after Mg Citrate), Flatus. Denies: Difficulty Swallowing, Hematochezia, Melena, Nausea, Vomiting Genitourinary: Reports: No Symptoms Musculoskeletal: Reports: No Symptoms Skin: Reports: No Symptoms Neurological: Reports: No Symptoms Psychiatric: Reports: Anxiety (has some anxiety given current health complaint and no definitive diagnosis of cause) - Patient Data Vitals - Most Recent: Last Vital Signs Temp 36.5 C 09/25/18 06:00 Pulse 74 09/25/18 06:00 Resp 17 09/25/18 06:00 BP 116/70 09/25/18 06:00 Pulse Ox 99 09/25/18 06:00 Weight - Most Recent: 82.327 kg I&O - Last 24 hours: Intake & Output 09/24/18 09/25/18 09/25/18 22:59 06:59 14:59 Intake Total 100 100 120 Balance 100 100 120 Lab Results - Last 24 hrs: Laboratory Results - last 24 hr 09/25/18 09/25/18 Range/Units 07:08 07:08 WBC 8.3 (4.0-10.2) K/uL RBC 3.90 (3.77-5.09) M/uL Hgb 12.6 (11.7-15.5) g/dL Hct 36.7 (34.0-46.0) % MCV 94.1 (84.0-98.0) fL MCH 32.3 (28.2-33.3) pg MCHC 34.3 (31.7-36.0) g/dL RDW 12.6 (11.2-14.1) % Plt Count 171 (150-350) K/uL Neut % (Auto) 53.5 (45.0-80.0) % Lymph % (Auto) 37.7 (10.0-50.0) % [place] % (Auto) 6.4 (2.0-14.0) % Eos % (Auto) 2.0 (0.0-5.0) % Baso % (Auto) 0.4 (0.0-2.0) % Neut # (Auto) 4.45 (1.40-7.00) K/uL Lymph # (Auto) 3.14 (0.50-3.50) K/uL [place] # (Auto) 0.53 (0.00-1.00) K/uL Eos # (Auto) 0.17 (0.00-0.50) K/uL Baso # (Auto) 0.03 (0.00-0.20) K/uL Sodium 139 (136-145) mmol/L Potassium 4.8 (3.5-5.1) mmol/L Chloride 107 (98-107) mmol/L Carbon Dioxide 25.3 (21.0-32.0) mmol/L BUN 12 (7-18) mg/dL Creatinine 0.83 (0.51-1.17) mg/dL Est Cr Clr Drug Dosing 81.07 mL/min Estimated GFR (MDRD) > 60 mL/min Glucose 92 (74-106) mg/dL Calcium 8.4 L (8.5-10.1) mg/dL Magnesium 1.8 (1.8-2.4) mg/dL Med Orders - Current: Current Medications Acetaminophen (Tylenol) 650 mg PO Q4H PRN PRN Reason: Pain/Fever Albuterol (Proventil Neb Soln) 2.5 mg INH Q2H PRN PRN Reason: SHORTNESS OF BREATH Albuterol/Ipratropium (Duoneb 3.0-0.5 Mg/3 Ml) 3 ml NEB Q4HRRT PRN PRN Reason: Dyspnea Albuterol/Ipratropium (Duoneb 3.0-0.5 Mg/3 Ml) 3 ml NEB Q6HRRT [facility] Last Admin: 09/25/18 07:49 Dose: 3 ml Budesonide (Pulmicort) 0.5 mg NEB BIDRT [facility] Last Admin: 09/25/18 07:49 Dose: 0.5 mg Famotidine (Pepcid) 20 mg IVPUSH BID [facility] Last Admin: 09/25/18 07:49 Dose: 20 mg Guaifenesin/Dextromethorphan (Mucinex Dm Er 600-30 Mg) 1 tab PO BID [facility] Last Admin: 09/25/18 07:50 Dose: 1 tab Ceftriaxone Sodium 1 gm/ (Sodium Chloride) 100 mls @ 200 mls/hr IV Q12H [facility] Last Admin: 09/24/18 22:47 Dose: Not Given Ketorolac Tromethamine (Toradol) 30 mg IVPUSH Q6H [facility] Stop: 09/28/18 18:01 Last Admin: 09/25/18 07:48 Dose: 30 mg Magnesium Oxide (Magnesium Oxide) 400 mg PO BID [facility] Last Admin: 09/25/18 07:49 Dose: 400 mg Miscellaneous Information (Remove Patch) 1 ea TRDERM BEDTIME [facility] Last Admin: 09/24/18 21:41 Dose: Not Given Nicotine (Habitrol) 14 mg TRDERM BEDTIME [facility] Last Admin: 09/24/18 21:41 Dose: Not Given Ondansetron HCl (Zofran) 4 mg IVPUSH Q6H PRN PRN Reason: Nausea/Vomiting Last Admin: 09/23/18 23:22 Dose: 4 mg Pantoprazole Sodium (Protonix Iv) 40 mg IVPUSH Q12H [facility] Last Admin: 09/24/18 21:46 Dose: Not Given Sodium Chloride (Saline Flush) 10 ml FLUSH ASDIRECTED PRN PRN Reason: Keep Vein Open Last Admin: 09/25/18 07:54 Dose: 10 ml Temazepam (Restoril) 15 mg PO BEDTIME PRN PRN Reason: Insomnia Last Admin: 09/24/18 23:10 Dose: 15 mg Tramadol HCl (Ultram) 50 mg PO Q6H PRN PRN Reason: Pain Last Admin: 09/23/18 21:04 Dose: 50 mg Trimethoprim/Sulfamethoxazole (Septra Ds) 1 tab PO BID [facility] Last Admin: 09/25/18 07:49 Dose: 1 tab Discontinued Medications Acetaminophen (Tylenol) 650 mg PO Q6H PRN PRN Reason: Pain Diazepam (Valium.) 5 mg PO ONETIME ONE Stop: 09/23/18 21:51 Last Admin: 09/23/18 22:31 Dose: 5 mg Fentanyl (Sublimaze) 100 mcg IVPUSH ONETIME ONE Stop: 09/23/18 12:46 Last Admin: 09/23/18 13:10 Dose: 100 mcg Fentanyl (Sublimaze) 100 mcg IVPUSH ONETIME ONE Stop: 09/23/18 16:58 Last Admin: 09/23/18 17:11 Dose: 100 mcg Fentanyl (Sublimaze) 100 mcg IVPUSH Q4H PRN PRN Reason: Pain (severe 7-10) Last Admin: 09/24/18 07:57 Dose: 100 mcg Sodium Chloride (Normal Saline) 1,000 mls @ 999 mls/hr IV .BOLUS ONE Stop: 09/23/18 14:06 Last Admin: 09/23/18 15:41 Dose: 999 mls/hr Iopamidol (Isovue-300 (61%)) 100 ml IVPUSH ONETIME ONE Stop: 09/23/18 13:40 Last Admin: 09/23/18 16:56 Dose: Not Given Ketorolac Tromethamine (Toradol) 60 mg IM ONETIME ONE Stop: 09/23/18 12:22 Last Admin: 09/23/18 12:30 Dose: 60 mg Ketorolac Tromethamine (Toradol) 30 mg IVPUSH Q6H [facility] Stop: 09/28/18 16:58 Last Admin: 09/23/18 17:33 Dose: Not Given Lorazepam (Ativan) 0.5 mg PO ONETIME ONE Stop: 09/23/18 15:31 Last Admin: 09/23/18 15:37 Dose: 0.5 mg Magnesium Citrate (Citrate Of Magnesia) 296 ml PO ONETIME ONE Stop: 09/24/18 09:57 Last Admin: 09/24/18 10:10 Dose: 296 ml Magnesium Oxide (Magnesium Oxide) 400 mg PO DAILY [facility] Last Admin: 09/24/18 10:11 Dose: 400 mg Magnesium Sulfate/Dextrose (Magnesium 1 Gm In D5w 100 Ml) 1 gm IV ONETIME ONE Stop: 09/23/18 13:00 Last Admin: 09/23/18 13:16 Dose: 1 gm Magnesium Sulfate/Dextrose (Magnesium 1 Gm In D5w 100 Ml) 1 gm IV ONETIME ONE Stop: 09/23/18 15:27 Last Admin: 09/23/18 16:02 Dose: 1 gm Nicotine (Habitrol) 14 mg TRDERM DAILY [facility] Ondansetron HCl (Zofran) 4 mg IVPUSH ONETIME ONE Stop: 09/23/18 12:46 Last Admin: 09/23/18 13:10 Dose: 4 mg Pantoprazole Sodium (Protonix Iv) 40 mg IVPUSH ONETIME ONE Stop: 09/23/18 16:59 Last Admin: 09/23/18 17:11 Dose: 40 mg Polyethylene Glycol (Miralax) 17 gm PO ONETIME ONE Stop: 09/24/18 09:57 Last Admin: 09/24/18 10:10 Dose: 17 gm Tramadol HCl (Ultram) 100 mg PO ONETIME ONE Stop: 09/23/18 15:27 Last Admin: 09/23/18 15:39 Dose: 100 mg - Exam General: Reports: Alert, Oriented, Cooperative (Appears stressed out, mildly anxious) HEENT: Reports: Pupils Equal, Pupils Reactive, EOMI Neck: Reports: Supple Lungs: Reports: Clear to Auscultation, Normal Respiratory Effort Cardiovascular: Reports: Regular Rate, Regular Rhythm GI/Abdominal Exam: Normal Bowel Sounds, Soft, Other (mildly bloated compared to previous exam). No: Guarding, Rigid, Rebound, Tender (Female) Exam: Deferred Rectal (Female) Exam: Deferred Back Exam: Reports: Other (some discomfort with palpation of left lower posterior ribs. ). Denies: CVA Tenderness (L), CVA Tenderness (R), Muscle Spasm , Paraspinal Tenderness, Vertebral Tenderness Skin: Reports: Warm, Dry, Intact Neurological: Reports: No New Focal Deficit Psy/Mental Status: Reports: Alert, Normal Affect, Anxious
[2018-09-25] MEDS: cefTRIAXone 1 GM in Sodium Chloride 0.9% 100 ML IV SCH (14:06)
[2018-09-25] MEDS: Pantoprazole 40 MG Vial IVPUSH SCH (14:06)
== END 2018-09-25 11:25 | disposition home or self-care (01) ==
LOC: LL.ED 11:27 → LL.MS 16:21
PROVIDERS: ADMIT Emergency Medicine; ATTEND Family Medicine
DX: R07.81 Pleurodynia (principal); E83.42 Hypomagnesemia; E83.51 Hypocalcemia; E88.09 Other disorders of plasma-protein metabolism, not elsewhere classified; J20.9 Acute bronchitis, unspecified; J45.901 Unspecified asthma with (acute) exacerbation; F41.8 Other specified anxiety disorders; K58.1 Irritable bowel syndrome with constipation; Z71.6 Tobacco abuse counseling
CPT/HCPCS: 36415; 71046; 71260; 74019; 74022; 80048; 80053; 80305-QW; 81001; 81025; 82607; 82746; 83735; 84484; 85025; 85379; 94640; 96361; 96365; 96366; 96372; 96375; 99285-25; A9270-GY; C9113; J0696; J1885; J2405; J3010; J3475; J3490; J7030; J7050; J7620-GY; Q9967

== ENCOUNTER 2018-09-26 01:15 | Emergency (ER) | payer BC ==
[2018-09-26] MEDS ORDERED: Sodium Chloride 0.9% 10 ML Syringe FLUSH PRN (01:32)
[2018-09-26 02:03] LABS: CHLORIDE,CL 103 mmol/L (98-107); SODIUM,NA 138 mmol/L (136-145)
--- NOTE | 2018-09-26 02:19 | EDM.PDOC ---
ED HPI GENERAL MEDICAL PROBLEM - General Chief Complaint: Abdominal Pain Stated Complaint: abd pain, bloating Time Seen by Provider: 09/26/18 01:52 Source of Information: Reports: Patient History Limitations: Reports: No Limitations - History of Present Illness INITIAL COMMENTS - FREE TEXT/NARRATIVE: Patient returns to ER shortly after midnight after being discharged from Observation the previous day. Main complaint at this time is abdominal bloating /discomfort. Initially patient was seen for complaint of left lower posterior rib/chest pain three days ago. She had been seen at the clinic prior to coming to the ER for this. Had negative noncontrast CT of abdomen performed by clinic. Pain in this area had been present to some extent for a year or more, but had worsened significantly around time of presentation. Accompanying complaints were that the patient did not feel like usual self and that she had low grade temp around 100 the day before. No history of shingles. Labs/abdominal xray repeated. WBC mildly elevated. Ultimately a chest CT was performed given patient's report of pain severity and the only finding was bronchiolitis in left upper and right lungs. She was admitted obs for pain control. Day 2 she continued to complain of significant pain in this same area, no other changes noted. No fevers. Vital signs stable. WBC slightly more elevated. Physician that rounded on her that day started pt on Rocephin and Bactrim to cover for possible early pneumonia/pleurisy. He also obtained a plain abdominal film and noted constipation. Mag Citrate ordered. Patient passed significant amount of stool that day. No change in back rib pain noted. The following day, yesterday, she noticed her abdomen appeared more distended after eating breakfast. A new abdominal film was obtained, and overall was unremarkable. She appeared to have remains of stool in some areas of the colon. WBC normal yesterday. Patient wanted to be discharged home. It was thought that she was experiencing bloating after the Mag Citrate treatment which is a known possible side effect. She was sent home on PO Bactrim and PRN Tramadol with instructions to return if problems worsened. She has remained afebrile. Posterior left lower rib pain is still present. Bloating has obviously increased since discharge yesterday. Abdominal Pain Score (Numeric/FACES): 9 Headache Pain Score (Numeric/FACES): 6 - Related Data Allergies Allergy/AdvReac Type Severity Reaction Status Date / Time codeine Allergy Hives Verified 09/26/18 01:57 morphine Allergy Hives Verified 09/26/18 01:57 Home Meds: Home Meds Acetaminophen [Tylenol] 800 mg PO Q4H 09/23/18 [History] Cetirizine HCl [Zyrtec] 10 mg PO DAILY 09/23/18 [History] Fluticasone Propionate [Flonase Allergy Relief] 2 spray AMIRAH DAILY 09/23/18 [ History] Ibuprofen 800 mg PO Q6H 09/23/18 [History] Albuterol [Ventolin HFA] 1 puff INH Q4H PRN #1 puff 09/25/18 [Rx] Fluconazole [Diflucan] 150 mg PO ONETIME #1 tab 09/25/18 [Rx] Magnesium Oxide 400 mg PO BID #60 tablet 09/25/18 [Rx] Sulfamethoxazole/Trimethoprim [Septra DS] 1 tab PO BID #14 tablet 09/25/18 [Rx] traMADol [Ultram] 50 mg PO Q6H PRN #16 tablet 09/25/18 [Rx] Past Medical History HEENT History: Reports: Other (See Below) (chronic sinus issues) Cardiovascular History: Reports: High Cholesterol Respiratory History: Reports: None Gastrointestinal History: Reports: Irritable Bowel Syndrome Genitourinary History: Reports: Renal Calculus Musculoskeletal History: Reports: Fracture Neurological History: Reports: Concussion, Headaches, Chronic Psychiatric History: Reports: None Endocrine/Metabolic History: Reports: Other (See Below) Other Endocrine/Metabolic History: history of kristina's Hematologic History: Reports: None Immunologic History: Reports: Other (See Below) (suspected environmental/food intolerances) Oncologic (Cancer) History: Reports: None Dermatologic History: Reports: None - Infectious Disease History Infectious Disease History: Reports: Chicken Pox, Shingles - Past Surgical History HEENT Surgical History: Reports: Adenoidectomy, Oral Surgery, Tonsillectomy, Other (See Below) Other HEENT Surgeries/Procedures: partial dentures Cardiovascular Surgical History: Reports: None Respiratory Surgical History: Reports: None GI Surgical History: Reports: Appendectomy, Colonoscopy Female Surgical History: Reports: D&C, Tubal Ligation, Other (See Below) Other Female Surgeries/Procedures: hysteroscopy Neurological Surgical History: Reports: None Musculoskeletal Surgical History: Reports: Other (See Below) Other Musculoskeletal Surgeries/Procedures:: right wrist tendon repair Social & Family History - Tobacco Use Smoking Status *Q: Current Every Day Smoker Years of Tobacco use: 20 Packs/Tins Daily: 1 - Caffeine Use Caffeine Use: Reports: Soda ED ROS GENERAL - Review of Systems Review Of Systems: See Below Constitutional: Reports: Decreased Appetite. Denies: Fever, Chills, Diaphoresis HEENT: Reports: No Symptoms Respiratory: Reports: Wheezing (mild wheezing two days ago), Cough (only after neb treatments while on observaton), Other (left lower rib pain posteriorly can get slightly worse with deep breath) Cardiovascular: Reports: Other (no anterior chest pain). Denies: Dyspnea on Exertion, Edema, Lightheadedness, Palpitations, Syncope GI/Abdominal: Reports: Abdominal Pain, Decreased Appetite, Distension, Nausea, Other (Not passing much gas). Denies: Vomiting : Reports: Other (history of needing to "force" urine out/hesitancy. No formal evaluation other than an [place]. [place] some burning two days ago. Two normal UAs while obs patient) Musculoskeletal: Reports: No Symptoms Skin: Reports: No Symptoms Neurological: Reports: No Symptoms Psychiatric: Reports: Anxiety (very anxious throughout recent observation stay) ED EXAM, GI/ABD - Physical Exam Exam: See Below Exam Limited By: No Limitations General Appearance: Alert, WD/WN, No Apparent Distress Eyes: Bilateral: Normal Appearance, EOMI Ears: Normal External Exam Nose: No: Nasal Deformity, Nasal Swelling, Nasal Drainage Throat/Mouth: Normal Lips, Normal Voice, No Airway Compromise Head: Atraumatic, Normocephalic Neck: Normal Inspection, Supple, Non-Tender, Full Range of Motion Respiratory/Chest: No Respiratory Distress, Lungs Clear, Normal Breath Sounds, No Accessory Muscle Use, Other (tenderness with palpation focally left lower lateral ribs posteriorly, reproduces patient's pain complaint) Cardiovascular: Normal Peripheral Pulses, Regular Rate, Rhythm, No Edema, No Murmur GI/Abdominal Exam: Normal Bowel Sounds, Soft, No Abnormal Bruit, Distended, Tender (mild discomfort with palpation). No: Guarding, Rigid, Rebound (Female) Exam: Deferred Rectal (Female) Exam: Deferred Back Exam: No: CVA Tenderness (L), CVA Tenderness (R), Muscle Spasm, Paraspinal Tenderness, Vertebral Tenderness Extremities: Normal Inspection, No Pedal Edema, Normal Capillary Refill Neurological: Alert, Oriented, Normal Cognition, Normal Gait, No Motor/Sensory Deficits Psychiatric: Anxious Skin Exam: Warm, Dry, Intact, Normal Color, No Rash Course - Vital Signs Last Recorded V/S: Last Vital Signs Temp 36.8 C 09/26/18 01:15 Pulse 86 09/26/18 01:15 Resp 19 09/26/18 01:15 BP 138/81 09/26/18 01:15 Pulse Ox 100 09/26/18 01:15 - Orders/Labs/Meds Orders: Active Orders 24 hr Category Date Time Status Abdomen 2V AP Flat Upright [CR] Stat Exams 09/26/18 01:32 Ordered Sodium Chloride 0.9% [Saline Flush] Med 09/26/18 01:32 Active 10 ml FLUSH ASDIRECTED PRN Saline Lock Insert [OM.PC] Routine Oth 09/26/18 01:32 Ordered Medication Orders Sodium Chloride (Saline Flush) 10 ml FLUSH ASDIRECTED PRN PRN Reason: Keep Vein Open Labs: Laboratory Tests 09/26/18 09/26/18 Range/Units 01:45 01:45 WBC 13.2 H (4.0-10.2) K/uL RBC 4.57 (3.77-5.09) M/uL Hgb 14.7 D (11.7-15.5) g/dL Hct 42.5 (34.0-46.0) % MCV 93.0 (84.0-98.0) fL MCH 32.2 (28.2-33.3) pg MCHC 34.6 (31.7-36.0) g/dL RDW 12.5 (11.2-14.1) % Plt Count 213 (150-350) K/uL Neut % (Auto) 65.7 (45.0-80.0) % Lymph % (Auto) 26.9 (10.0-50.0) % [place] % (Auto) 5.5 (2.0-14.0) % Eos % (Auto) 1.4 (0.0-5.0) % Baso % (Auto) 0.5 (0.0-2.0) % Neut # (Auto) 8.69 H (1.40-7.00) K/uL Lymph # (Auto) 3.55 H (0.50-3.50) K/uL [place] # (Auto) 0.72 (0.00-1.00) K/uL Eos # (Auto) 0.18 (0.00-0.50) K/uL Baso # (Auto) 0.06 (0.00-0.20) K/uL Sodium 138 (136-145) mmol/L Potassium 4.0 (3.5-5.1) mmol/L Chloride 103 (98-107) mmol/L Carbon Dioxide 26.6 (21.0-32.0) mmol/L BUN 9 (7-18) mg/dL Creatinine 0.79 (0.51-1.17) mg/dL Est Cr Clr Drug Dosing 85.18 mL/min Estimated GFR (MDRD) > 60 mL/min Glucose 97 (74-106) mg/dL Calcium 8.6 (8.5-10.1) mg/dL Total Bilirubin 0.6 (0.2-1.0) mg/dL AST 17 (15-37) U/L ALT 30 (12-78) U/L Alkaline Phosphatase 67 (46-116) IU/L Total Protein 7.0 (6.4-8.2) g/dL Albumin 3.6 (3.4-5.0) g/dL Meds: Medications Generic Name Dose Route Start Last Admin Trade Name Freq PRN Reason Stop Dose Admin Sodium Chloride 10 ml 09/26/18 01:32 Saline Flush FLUSH ASDIRECTED PRN Keep Vein Open - Re-Assessments/Exams Free Text/Narrative Re-Assessment/Exam: 09/26/18 02:46 Repeat abdominal films obtained. Air/fluid levels now present. Suspect possible reaction/ileus to recent MagCitrate treatment. Recent antibiotic treatment as well as the pain medications she received could also have GI effects there were additive. Patient declined nausea medication and pain medication. She thinks she might feel better if she threw up, and does not want to add any more motility effects of narcotics. Given the worsening abdominal symptoms, and continued unimproved left posterior- lateral rib pain ( no definite specific cause for pain identified), it was felt that she may benefit from evaluation at [facility] where GI and Internal Medicine is available for consult. Patient was discussed with who accepted that patient for transfer. Patient driven by private vehicle to [facility]. Placed NPO in ER. Departure - Departure Time of Disposition: 02:25 Disposition: DC/Tfer to Acute Hospital 02 Clinical Impression: Ileus, Posterior chest pain - Discharge Information *PRESCRIPTION DRUG MONITORING PROGRAM REVIEWED*: Not Applicable *COPY OF PRESCRIPTION DRUG MONITORING REPORT IN PATIENT FRANCHESCA: Not Applicable Referrals: Sayra Head PA-C [Primary Care Provider] - Forms: ED Department Discharge Additional Instructions: Go directly to [facility]. They are expecting you. Do not eat/drink anything before they are able to evaluate you. - My Orders Last 24 Hours: My Active Orders 09/26/18 01:32 Abdomen 2V AP Flat Upright [CR] Stat Sodium Chloride 0.9% [Saline Flush] 10 ml FLUSH ASDIRECTED PRN Saline Lock Insert [OM.PC] Routine - Assessment/Plan Last 24 Hours: My Active Orders 09/26/18 01:32 Abdomen 2V AP Flat Upright [CR] Stat Sodium Chloride 0.9% [Saline Flush] 10 ml FLUSH ASDIRECTED PRN Saline Lock Insert [OM.PC] Routine
== END 2018-09-26 02:40 ==
LOC: LL.ED 01:15
DX: K56.7 Ileus, unspecified (principal); R07.89 Other chest pain; F17.210 Nicotine dependence, cigarettes, uncomplicated; E78.00 Pure hypercholesterolemia, unspecified; Z79.899 Other long term (current) drug therapy; Z88.5 Allergy status to narcotic agent
CPT/HCPCS: 36000; 36415; 74019; 80053; 85025; 99284-25

== ENCOUNTER 2019-01-27 20:12 | Emergency (ER) | payer BC, OTHER ==
[2019-01-27] MEDS: Diphtheria,Pertussis(Acell),Tetanus Vaccine 0.5 ML SDV IM ONE (21:08)
[2019-01-27] MEDS: Bacitracin/Neomycin/Polymyxin B Oint 0.9 GM U/D Packet TOP ONE (21:08)
--- NOTE | 2019-01-27 21:09 | EDM.PDOC ---
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 Has pain between PIP and DIP joints of thumb but not pain around actual joints. Small superficial laceration near PIP/early bruising noted. Tender along the bone. No deformity. Tetanus needs updating. Denies other injuries. 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 DIE FINISHER: Reports: NSAIDS Other 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 DIE FINISHER: ibuprofen 800 mg at 1700 Left Finger-Thumb Pain Score (Numeric/FACES): 7 - Related Data Allergies Allergy/AdvReac Type Severity Reaction Status Date / Time codeine Allergy Hives Verified 09/26/18 01:57 morphine Allergy Hives Verified 09/26/18 01:57 Home Meds: Home Meds Fluticasone Propionate [Flonase Allergy Relief] 2 spray AMIRAH DAILY 09/23/18 [ History] Ibuprofen 800 mg PO Q6H 09/23/18 [History] Albuterol [Ventolin HFA] 1 puff INH Q4H PRN #1 puff 09/25/18 [Rx] Loratadine/Pseudoephedrine [Loratadine-D 24Hr Tab] 1 each PO DAILY 01/27/19 [ History] Omeprazole 20 mg PO DAILY 01/27/19 [History] Past Medical History HEENT History: Reports: Other (See Below) (chronic sinus issues) Cardiovascular History: Reports: High Cholesterol Respiratory History: Reports: None Gastrointestinal History: Reports: Irritable Bowel Syndrome Genitourinary History: Reports: Renal Calculus Musculoskeletal History: Reports: Fracture Neurological History: Reports: Concussion, Headaches, Chronic Psychiatric History: Reports: None Endocrine/Metabolic History: Reports: Other (See Below) Other Endocrine/Metabolic History: history of kristina's Hematologic History: Reports: None Immunologic History: Reports: Other (See Below) (suspected environmental/food intolerances) Oncologic (Cancer) History: Reports: None Dermatologic History: Reports: None - Infectious Disease History Infectious Disease History: Reports: Chicken Pox, Shingles - Past Surgical History HEENT Surgical History: Reports: Adenoidectomy, Oral Surgery, Tonsillectomy, Other (See Below) Other HEENT Surgeries/Procedures: partial dentures Cardiovascular Surgical History: Reports: None Respiratory Surgical History: Reports: None GI Surgical History: Reports: Appendectomy, Colonoscopy Female Surgical History: Reports: D&C, Tubal Ligation, Other (See Below) Other Female Surgeries/Procedures: hysteroscopy Neurological Surgical History: Reports: None Musculoskeletal Surgical History: Reports: Other (See Below) Other Musculoskeletal Surgeries/Procedures:: right wrist tendon repair Social & Family History - Tobacco Use Smoking Status *Q: Current Every Day Smoker Years of Tobacco use: 22 Packs/Tins Daily: 1 Smoking Cessation Information Provided To Patient: Patient Refused - Caffeine Use Caffeine Use: Reports: Soda ED ROS GENERAL - Review of Systems Review Of Systems: ROS reveals no pertinent complaints other than HPI. ED EXAM, GENERAL - Physical Exam Exam: See Below Exam Limited By: No Limitations General Appearance: Alert, WD/WN, No Apparent Distress Eye Exam: Bilateral Eye: EOMI, PERRL Throat/Mouth: Normal Voice, No Airway Compromise Head: Atraumatic, Normocephalic Neck: Supple Respiratory/Chest: No Respiratory Distress Extremities: Other (Exam of left hand shows superficial laceration near PIP joint left thumb that is u-shaped. No bleeding. Early bruising around this area. No tenderness with palpation around PIP and DIP joints. Tendon function appears intact. Remaining fingers and hand unremarkable for injury. ). No: Joint Swelling, Mottled, Pallor, Redness Course - Vital Signs Last Recorded V/S: Last Vital Signs Temp 37.2 C 01/27/19 20:13 Pulse 91 01/27/19 20:13 Resp 16 01/27/19 20:13 BP 133/93 H 01/27/19 20:13 Pulse Ox 100 01/27/19 20:13 - Orders/Labs/Meds Orders: Active Orders 24 hr Category Date Time Status Vaccines to be Administered [RC] PER UNIT ROUTINE Care 01/27/19 21:03 Ordered Fingers Thumb Lt FA [CR] Stat Exams 01/27/19 20:34 Taken Meds: Medications Discontinued Medications Generic Name Dose Route Start Last Admin Trade Name Freq PRN Reason Stop Dose Admin Diphtheria/Tetanus/Acell Pertussis 0.5 ml 01/27/19 21:03 01/27/19 21:08 Adacel IM 01/27/19 21:04 0.5 ml .ONCE ONE Administration Neomycin/Polymyxin/Bacitracin 1 each 01/27/19 21:03 01/27/19 21:08 Triple Antibiotic Oint TOP 01/27/19 21:04 1 each ONETIME ONE Administration - Radiology Interpretation Free Text/Narrative:: Xray of left thumb did not show obvious fracture. Pending radiology review - Re-Assessments/Exams Free Text/Narrative Re-Assessment/Exam: Soft tissue injury noted, however no fracture identified. Tendon function appears intact. Superficial laceration does not require suturing. Finger splinted with metal prefab splint for comfort and protection. No work tomorrow. To return to full duty Friday. If she has any concerns she is to get rechecked at clinic tomorrow afternoon and have further work restrictions determined as needed. Antibiotic ointment/bandage applied over abrasion/ laceration. Departure - Departure Time of Disposition: 21:07 Disposition: Home, Self-Care 01 Condition: Good Clinical Impression: Injury of left thumb Qualifiers: Encounter type: initial encounter Qualified Code(s): S69.92XA - Unspecified injury of left wrist, hand and finger(s), initial encounter - Discharge Information *PRESCRIPTION DRUG MONITORING PROGRAM REVIEWED*: Not Applicable *COPY OF PRESCRIPTION DRUG MONITORING REPORT IN PATIENT FRANCHESCA: Not Applicable Referrals: Sayra Head PA-C [Primary Care Provider] - Forms: ED Department Discharge Additional Instructions: Wear splint for comfort and protection. If you feel that you have enough discomfort tomorrow that will inhibit your ability to perform well at your workstation, follow up at clinic for recheck and further restrictions as needed. Ibuprofen or Aleve to help with pain and swelling. Tylenol also ok to take for pain. Follow up otherwise as needed. - My Orders Last 24 Hours: My Active Orders 01/27/19 20:34 Fingers Thumb Lt FA [CR] Stat 01/27/19 21:03 Vaccines to be Administered [RC] PER UNIT ROUTINE - Assessment/Plan Last 24 Hours: My Active Orders 01/27/19 20:34 Fingers Thumb Lt FA [CR] Stat 01/27/19 21:03 Vaccines to be Administered [RC] PER UNIT ROUTINE
== END 2019-01-27 21:30 | disposition home or self-care (01) ==
LOC: LL.ED 20:12
DX: S61.012A Laceration without foreign body of left thumb without damage to nail, initial encounter (principal); Z23 Encounter for immunization; Z88.5 Allergy status to narcotic agent; Z79.899 Other long term (current) drug therapy; F17.210 Nicotine dependence, cigarettes, uncomplicated; W22.8XXA Striking against or struck by other objects, initial encounter
CPT/HCPCS: 73140-FA; 90471; 90715; 99283-25

== ENCOUNTER 2019-06-03 20:04 | Emergency (ER) | payer BC ==
[2019-06-03 20:14] VITALS: BP 127/78; PULSE 88
--- NOTE | 2019-06-03 20:31 | EDM.PDOC ---
ED HPI GENERAL MEDICAL PROBLEM - General Chief Complaint: General Stated Complaint: FLU LIKE SYMPTOMS, RIB PAIN Time Seen by Provider: 06/03/19 20:20 Source of Information: Reports: Patient, Old Records ([facility] EMR. No paper hospital chart available.) History Limitations: Reports: No Limitations - History of Present Illness INITIAL COMMENTS - FREE TEXT/NARRATIVE: Patient drove herself to the emergency room via private automobile for evaluation of refractory left sided pleurisy during the last couple of days. Note that the patient has an 11 day history of progressive greenish nasal drainage and productive cough with patient prescribed Zithromax and a short course of prednisone on 05/31. She did have a fever of 100.4 earlier today with 800 mg of ibuprofen taken at about 16:30 hours. She denies any known exposure to infection, however she has not yet had her influenza booster this season. Her sinus drainage has improved after starting Zithromax. The patient denies any chest pressure, heart flutter, dizziness, orthostasis, orthopnea, diaphoresis, paresthesias, recent decreased exercise tolerance, or any other anginal-type symptoms. No recent history of abdominal pain, heartburn, nausea, melena, gross hematochezia, or any food intolerance, including fatty foods, etc. although some loose bowel movements today. She denies any gross hematuria, colic, or other UTI symptoms, however does have problems with urinary stress incontinence on coughing. Onset: Gradual Onset Date: 05/22/19 Duration: Constant, Getting Worse Location: Reports: Chest (Left-sided pleurisy). Denies: Head, Face, Neck, Abdomen, Back, Radiates to Quality: Reports: Sharp Severity: Moderate Improves with: Reports: None Worsens with: Reports: Breathing Context: Reports: Other (As above). Denies: Sick Contact, Trauma Associated Symptoms: Reports: Chest Pain (Pleurisy), Cough, cough w sputum, Fever/Chills, Headaches (Sinus). Denies: Confusion, Diaphoresis, Loss of Appetite, Malaise, Nausea/Vomiting, Rash, Shortness of Breath, Syncope Treatments RESPIRATORY MEDICINE PHYSICIAN: Reports: NSAIDS Left Lower Thoracic Pain Score (Numeric/FACES): 7 - Related Data Allergies Allergy/AdvReac Type Severity Reaction Status Date / Time codeine Allergy Hives Verified 06/03/19 20:20 morphine Allergy Hives Verified 06/03/19 20:20 Home Meds: Home Meds Fluticasone Propionate [Flonase Allergy Relief] 2 spray AMIRAH DAILY 09/23/18 [ History] Loratadine/Pseudoephedrine [Loratadine-D 24Hr Tablet] 1 each PO DAILY 01/27/19 [ History] Omeprazole 20 mg PO DAILY 01/27/19 [History] Albuterol [Ventolin HFA] 2 puff INH Q4H PRN 06/03/19 [History] Azithromycin 500 mg PO DAILY 06/03/19 [History] Magnesium Oxide 400 mg PO BID #60 tab 06/03/19 [Rx] guaiFENesin/Dextromethorphan [Mucinex DM ER 1,200-60 MG] 1 tab PO BID 06/03/19 [ History] predniSONE [Prednisone] 20 mg PO DAILY 06/03/19 [History] Past Medical History HEENT History: Reports: Allergic Rhinitis, Otitis Media, Sinusitis, Other (See Below). Denies: Hard of Hearing, Impaired Vision, Retinal Detachment Other HEENT History: Recurrent otitis media without previous PE tubes therapy. Chronic allergic sinusitis. Environmental and food allergies. Eustachian tube dysfunction. Cardiovascular History: Reports: High Cholesterol. Denies: Afib, Aneurysm, Arrhythmia, Blood Clots/VTE/DVT, CAD, Cardiomyopathy, Heart Murmur, Hypertension , Syncope Respiratory History: Reports: Asthma, Bronchitis, Recurrent, Intubation, Previous. Denies: COPD, Intubation, Difficult, PE, Pneumothorax, Sleep Apnea, TB Gastrointestinal History: Reports: Chronic Diarrhea, Irritable Bowel Syndrome. Denies: Celiac Disease, Cholelithiasis, Gastritis, GERD, Inflammatory Bowel Disease, Jaundice, PUD Genitourinary History: Reports: Renal Calculus, Urinary Incontinence, UTI, Recurrent, Other (See Below). Denies: Acute Renal Failure, Chronic Renal Insuffiency, STD Other Genitourinary History: Current bilateral urolithiasis with spontaneous passage. SOCIAL WORK PROGRAM COORDINATOR History: Reports: Fibroids. Denies: Dysfunctional Uterine Bleeding, Endometriosis, , Spontaneous : 0 LMP (Approximate): Other (See Below) Other SOCIAL WORK PROGRAM COORDINATOR History: LMP Q 2124 days. Blocked fallopian tubes secondary to previous abdominal surgeries as below. Dysmenorrhea. Musculoskeletal History: Reports: Arthritis, Back Pain, Chronic, Fracture, Neck Pain, Chronic, Other (See Below). Denies: Gout, RA, SLE Other Musculoskeletal History: Right multiple foot fractures secondary to lawnmower accident at about age 11. Neurological History: Reports: Concussion, Headaches, Chronic, Head Trauma, Migraines, Other (See Below). Denies: Cerebral Aneurysms, CVA, MS, Parkinson's , Seizure, TIA, Vertigo Other Neuro History: Head concussion 2016. Non-epileptic pseudoseizures as a teenager. Psychiatric History: Reports: Anxiety, Depression. Denies: Abuse, Victim of, ADD, Addiction, Psych Hospitalization(s), PTSD, Suicide Attempt, Suicidal Ideation Endocrine/Metabolic History: Reports: Hypomagnesemia, Obesity/BMI 30+, Other ( See Below). Denies: Diabetes, Type I, Diabetes, Type II, Hypothyroidism, IDDM Other Endocrine/Metabolic History: history of Paulina's with no Synthroid supplementation required? Hypoalbuminemia. Hematologic History: Reports: None. Denies: Anemia, Blood Transfusion(s), Iron Deficiency Immunologic History: Reports: None. Denies: AIDS, HIV, SLE Oncologic (Cancer) History: Reports: Cervix, Other (See Below). Denies: Breast , Colon, Hodgkin's Lymphoma, Leukemia, Lymphoma, Malignant Melanoma, Non-Hodgkin 's Lymphoma, Ovarian, Squamous Cell Carcinoma, Uterine Other Oncologic History: Precancerous atypia at age 18 requiring LEEP procedure as below. Dermatologic History: Reports: Eczema. Denies: Psoriasis - Infectious Disease History Infectious Disease History: Reports: C-Difficile (C. difficile colitis in September 2017.), Chicken Pox, Mononucleosis (About age 10-12), Shingles (Left arm at about age 8). Denies: Measles, Meningitis, MRSA, Mumps, Rheumatic Fever, Rubella, Scarlet Fever, TB, VRE - Past Surgical History Head Surgeries/Procedures: Reports: None HEENT Surgical History: Reports: Adenoidectomy, Oral Surgery, Tonsillectomy, Other (See Below). Denies: Cataract Surgery, Eye Surgery, Laser Surgery, Myringotomy w Tube(s), Naso-Sinus Surgery Other HEENT Surgeries/Procedures: Multiple teeth extractions with partial upper dentures. Right-sided mandibular cyst excision 2015. Tonsillectomy and adenoidectomy at age 16. Cardiovascular Surgical History: Reports: None. Denies: Varicose Respiratory Surgical History: Reports: None. Denies: Thoracentesis GI Surgical History: Reports: Appendectomy, Colonoscopy, Other (See Below). Denies: Cholecystectomy, EGD, Hernia, Abdominal, Hernia, Inguinal, Hernia Repair /Other, Polypectomy Other GI Surgeries/Procedures: Appendectomy at age 14. Colonoscopies in about 1999 and 2001. Female Surgical History: Reports: D&C, LEEP, Tubal Ligation, Other (See Below ). Denies: Breast Biopsy, Section, Oophorectomy, Salpingo-Oophorectomy Other Female Surgeries/Procedures: D&C, hysteroscopy, and lateral tubal ligation at time of laparoscopic abdominal/pelvic evaluation age 27. Apparent staple adhesions to the bladder at the time of appendectomy additional staple removal at time of above procedure at age 27. LEEP procedure at age 18. Multiple vaginal wart cryotherapies and subsequent excisions. Nabothian cyst excision. Endocrine Surgical History: Denies: Thyroid Biopsy Neurological Surgical History: Reports: None. Denies: C-Spine, Discectomy, Laminectomy, Lumbar Spine, Sacral Spine, Spinal Fusion Musculoskeletal Surgical History: Reports: Other (See Below). Denies: Carpal Tunnel, Ganglion Cyst, ORIF Other Musculoskeletal Surgeries/Procedures:: Right wrist tendon repair in 2018. Oncologic Surgical History: Reports: None Dermatological Surgical History: Reports: None - Past Imaging History Past Imaging History: Reports: CAT Scan (CT of the chest on 09/23/18.), MRI (Left hand including left thumb on 01/29/19.), Ultrasound (Pelvis on 09/30/18.) Social & Family History - Tobacco Use Smoking Status *Q: Current Every Day Smoker Tobacco Use Within Last Twelve Months: Cigarettes Years of Tobacco use: 23 Packs/Tins Daily: 0.5 Packs/Tins Daily Comment: Started smoking at age 16 with maximum use of one pack per day. Used Tobacco, but Quit: No Smoking Cessation Information Provided To Patient: Yes Second Hand Smoke Exposure: Yes Source of Second Hand Smoke Exposure: smokes. Second Hand Smoke Education Provided: Yes - Caffeine Use Caffeine Use: Reports: Soda (48 sodas per day). Denies: Coffee, Energy Drinks , Tea - Alcohol Use Alcohol Use History: Yes Days Per Week of Alcohol Use: 0 Number of Drinks Per Day: 6 Number of Drinks Per Day Comment: Usually mixed drinks on special occasions or holidays. No previous DWIs, problems with alcohol abuse, etc. Total Drinks Per Week: 0 Alcohol Use in Last Twelve Months: Yes - Recreational Drug Use Recreational Drug Use: Yes Drug Use in Last 12 Months: No Recreational Drug Type: Reports: Marijuana/Hashish (Experimental at age 17). Denies: Amphetamines (Speed), Cocaine, Heroin, Inhalants (Glues, Solvents, Aerosols), LSD (Acid), Methamphetamine, Morphine, Oxycodone - Living Situation & Occupation Living situation: Reports: (2015.), with Family ( and stepchildren) Occupation: Employed ([employer]) ED ROS GENERAL - Review of Systems Review Of Systems: Comprehensive ROS is negative, except as noted in HPI. ED EXAM, GENERAL - Physical Exam Exam: See Below Exam Limited By: No Limitations General Appearance: Alert, WD/WN, No Apparent Distress, Anxious (Moderate) Eye Exam: Bilateral Eye: EOMI, Normal Inspection (No nystagmus), PERRL Ears: Normal External Exam, Normal Canal, Hearing Grossly Normal, Normal TMs Nose: Normal Mucosa, No Blood, Clear Rhinorrhea Throat/Mouth: Normal Inspection, Normal Lips, Normal Teeth (Partial upper dentures with multiple missing tooth lowers), Normal Gums, Normal Oropharynx, Normal Voice, No Airway Compromise. No: Dysphagia, Perioral Cyanosis Head: Atraumatic, Normocephalic, Sinus Tenderness (Bilateral frontal sinus tendernessborderline) Neck: Normal Inspection, Supple, Non-Tender, Full Range of Motion. No: Lymphadenopathy (L), Lymphadenopathy (R), Thyromegaly Respiratory/Chest: No Respiratory Distress, Lungs Clear, Normal Breath Sounds, No Accessory Muscle Use, Chest Non-Tender. No: Pleural Rub, Retractions Cardiovascular: Normal Peripheral Pulses, Regular Rate, Rhythm, No Edema, No Gallop, No JVD, No Murmur, No Rub. No: Gallop/S3, Gallop/S4, Friction Rub Peripheral Pulses: 2+: Radial (L), Radial (R) GI/Abdominal: Normal Bowel Sounds, Soft, Non-Tender, No Organomegaly, No Distention, No Abnormal Bruit, No Mass, Other (obese). No: Guarding (Female) Exam: Deferred Rectal (Female) Exam: Deferred Back Exam: Normal Inspection, Full Range of Motion. No: CVA Tenderness (L), CVA Tenderness (R), Muscle Spasm Extremities: Normal Inspection, Normal Range of Motion, Non-Tender, No Pedal Edema, Normal Capillary Refill. No: Colleen's Sign Neurological: Alert, Oriented, CN II-XII Intact, Normal Cognition, Normal Gait, No Motor/Sensory Deficits Psychiatric: Anxious (Moderate), Depressed Mood (Mild) Skin Exam: Warm. No: Diaphoretic, Wound/Incision Lymphatic: No Adenopathy Course - Vital Signs Last Recorded V/S: Last Vital Signs Temp 36.6 C 06/03/19 20:05 Pulse 88 06/03/19 20:05 Resp 18 06/03/19 20:05 BP 127/78 06/03/19 20:05 Pulse Ox 100 06/03/19 20:05 Vital Signs - 24 hr 06/03/19 20:05 Temperature [ 36.6 C Oral] Pulse, 88 Peripheral [ Pulse Oximetry] Respiratory 18 Rate Blood Pressure 127/78 [Left Upper Arm ] O2 Sat by Pulse 100 Oximetry - Orders/Labs/Meds Orders: Active Orders 24 hr Category Date Time Status Communication Order [RC] ROUTINE Care 06/03/19 20:32 Active Peripheral IV Care [RC] . DIRECTED Care 06/03/19 20:34 Active Up With Assistance [RC] ASDIRECTED Care 06/03/19 20:32 Active Nothing Per Oral Diet [DIET] Diet 06/03/19 Breakfast Active Chest 2V [CR] Stat Exams 06/03/19 20:32 Taken Sinus Comp Min 3V [CR] Stat Exams 06/03/19 20:42 Taken CULTURE SPUTUM + SMEAR [RM] Urgent Lab 06/03/19 20:32 Ordered CULTURE STREP A CONFIRMATION [] Stat Lab 06/03/19 20:40 Results CULTURE URINE [] Routine Lab 06/03/19 20:50 Received STREP SCRN A RAPID W CULT CONF [] Stat Lab 06/03/19 20:40 Results Sodium Chloride 0.9% [Saline Flush] Med 06/03/19 20:32 Active 10 ml FLUSH ASDIRECTED PRN Obtain Past Medical Record [OM.PC] Stat Oth 06/03/19 20:32 Active Peripheral IV Insertion Adult [OM.PC] Stat Oth 06/03/19 20:32 Ordered Medication Orders Sodium Chloride (Saline Flush) 10 ml FLUSH ASDIRECTED PRN PRN Reason: Keep Vein Open Labs: Laboratory Tests 06/03/19 06/03/19 06/03/19 Range/Units 20:50 20:51 20:51 WBC 17.3 H (4.0-10.2) K/uL RBC 5.00 (3.77-5.09) M/uL Hgb 15.8 H (11.7-15.5) g/dL Hct 46.3 H (34.0-46.0) % MCV 92.6 (84.0-98.0) fL MCH 31.6 (28.2-33.3) pg MCHC 34.1 (31.7-36.0) g/dL RDW 12.9 (11.2-14.1) % Plt Count 276 (150-350) K/uL Neut % (Auto) 71.6 (45.0-80.0) % Lymph % (Auto) 22.2 (10.0-50.0) % [place] % (Auto) 5.7 (2.0-14.0) % Eos % (Auto) 0.3 (0.0-5.0) % Baso % (Auto) 0.2 (0.0-2.0) % Neut # (Auto) 12.38 H (1.40-7.00) K/uL Lymph # (Auto) 3.85 H (0.50-3.50) K/uL [place] # (Auto) 0.99 (0.00-1.00) K/uL Eos # (Auto) 0.06 (0.00-0.50) K/uL Baso # (Auto) 0.04 (0.00-0.20) K/uL Sodium 140 (136-145) mmol/L Potassium 4.0 (3.5-5.1) mmol/L Chloride 106 (98-107) mmol/L Carbon Dioxide 23.1 (21.0-32.0) mmol/L BUN 19 H (7-18) mg/dL Creatinine 0.82 (0.51-1.17) mg/dL Est Cr Clr Drug Dosing 79.60 mL/min Estimated GFR (MDRD) > 60 mL/min Glucose 100 (74-106) mg/dL Lactic Acid (0.4-2.0) mmol/L Calcium 8.5 (8.5-10.1) mg/dL Magnesium 1.7 L (1.8-2.4) mg/dL Total Bilirubin 0.2 (0.2-1.0) mg/dL AST 11 L (15-37) U/L ALT 33 (12-78) U/L Alkaline Phosphatase 76 (46-116) IU/L Creatine Kinase 46 (26-308) U/L Creatine Kinase Index 0.9 (0.0-2.5) % CK-MB (CK-2) 0.40 (0.00-3.60) ng/mL Total Protein 7.4 (6.4-8.2) g/dL Albumin 3.5 (3.4-5.0) g/dL Specimen Type Urincc Urine Color Yellow Urine Appearance Clear Urine pH 5.5 (5.0-9.0) Ur Specific [place] 1.020 (1.005-1.030) Urine Protein Negative (NEGATIVE) mg/dL Urine Glucose (UA) Negative (NEGATIVE) mg/dL Urine Ketones Negative (NEGATIVE) mg/dL Urine Occult Blood Trace-intact H (NEGATIVE) Urine Nitrite Negative (NEGATIVE) Urine Bilirubin Negative (NEGATIVE) Urine Urobilinogen 0.2 (0.2-1.0) E.U./dL Ur Leukocyte Esterase Negative (NEGATIVE) Urine RBC 0-5 /HPF Urine WBC Not seen /HPF Ur Epithelial Cells Moderate H /LPF Urine Bacteria Moderate H (NONE TO FEW) /HPF 06/03/19 Range/Units 20:51 WBC (4.0-10.2) K/uL RBC (3.77-5.09) M/uL Hgb (11.7-15.5) g/dL Hct (34.0-46.0) % MCV (84.0-98.0) fL MCH (28.2-33.3) pg MCHC (31.7-36.0) g/dL RDW (11.2-14.1) % Plt Count (150-350) K/uL Neut % (Auto) (45.0-80.0) % Lymph % (Auto) (10.0-50.0) % [place] % (Auto) (2.0-14.0) % Eos % (Auto) (0.0-5.0) % Baso % (Auto) (0.0-2.0) % Neut # (Auto) (1.40-7.00) K/uL Lymph # (Auto) (0.50-3.50) K/uL [place] # (Auto) (0.00-1.00) K/uL Eos # (Auto) (0.00-0.50) K/uL Baso # (Auto) (0.00-0.20) K/uL Sodium (136-145) mmol/L Potassium (3.5-5.1) mmol/L Chloride (98-107) mmol/L Carbon Dioxide (21.0-32.0) mmol/L BUN (7-18) mg/dL Creatinine (0.51-1.17) mg/dL Est Cr Clr Drug Dosing mL/min Estimated GFR (MDRD) mL/min Glucose (74-106) mg/dL Lactic Acid 0.9 (0.4-2.0) mmol/L Calcium (8.5-10.1) mg/dL Magnesium (1.8-2.4) mg/dL Total Bilirubin (0.2-1.0) mg/dL AST (15-37) U/L ALT (12-78) U/L Alkaline Phosphatase (46-116) IU/L Creatine Kinase (26-308) U/L Creatine Kinase Index (0.0-2.5) % CK-MB (CK-2) (0.00-3.60) ng/mL Total Protein (6.4-8.2) g/dL Albumin (3.4-5.0) g/dL Specimen Type Urine Color Urine Appearance Urine pH (5.0-9.0) Ur Specific [place] (1.005-1.030) Urine Protein (NEGATIVE) mg/dL Urine Glucose (UA) (NEGATIVE) mg/dL Urine Ketones (NEGATIVE) mg/dL Urine Occult Blood (NEGATIVE) Urine Nitrite (NEGATIVE) Urine Bilirubin (NEGATIVE) Urine Urobilinogen (0.2-1.0) E.U./dL Ur Leukocyte Esterase (NEGATIVE) Urine RBC /HPF Urine WBC /HPF Ur Epithelial Cells /LPF Urine Bacteria (NONE TO FEW) /HPF Urine specimen set up for culture and sensitivity Microbiology 06/03/19 20:40 Group A Streptococcus Rapid Screen - Final Throat NEGATIVE STREP A SCREEN REFERENCE RANGE: NEGATIVE 06/03/19 20:40 Influenza Type A Antigen Screen - Final Nasal, Left NEGATIVE INFLUENZA A VIRUS AG REFERENCE RANGE: NEGATIVE Influenza Type B Antigen Screen - Final NEGATIVE INFLUENZA B VIRUS AG REFERENCE RANGE: NEGATIVE Meds: Medications Generic Name Dose Route Start Last Admin Trade Name Freq PRN Reason Stop Dose Admin Sodium Chloride 10 ml 06/03/19 20:32 Saline Flush FLUSH ASDIRECTED PRN Keep Vein Open Discontinued Medications Generic Name Dose Route Start Last Admin Trade Name Freq PRN Reason Stop Dose Admin Methylprednisolone Acetate 80 mg 06/03/19 21:40 06/03/19 21:47 Depo-Medrol IM 06/03/19 21:41 80 mg ONETIME ONE Administration - Radiology Interpretation Free Text/Narrative:: X-rays of the sinuses, complete, were normal with no evidence of acute infection. Chest x-ray, PA and lateral, shows evidence of moderate pulmonary obstructive disease with no pulmonary infiltrates, cardiomegaly, pneumothorax, etc. Departure - Departure Time of Disposition: 22:05 Disposition: Home, Self-Care 01 Clinical Impression: Pleurisy, Mixed anxiety depressive disorder, Hypomagnesemia, Tobacco abuse counseling URI (upper respiratory infection) Qualifiers: URI type: acute tracheitis Airway obstruction: without obstruction Qualified Code(s): J04.10 - Acute tracheitis without obstruction Asthma Qualifiers: Asthma severity: mild Asthma persistence: intermittent Asthma complication type : uncomplicated Qualified Code(s): J45.20 - Mild intermittent asthma, uncomplicated - Discharge Information *PRESCRIPTION DRUG MONITORING PROGRAM REVIEWED*: Not Applicable *COPY OF PRESCRIPTION DRUG MONITORING REPORT IN PATIENT FRANCHES[place]: Not Applicable Prescriptions: Magnesium Oxide 400 mg PO BID #60 tab Instructions: Upper Respiratory Infection, Adult, [id number], Pleurisy, Easy- to-Read, Steps to Quit Smoking Referrals: Sayra Head PA-C [Primary Care Provider] - Forms: ED Department Discharge Additional Instructions: 1. Followup with your regular provider in 7 days as directed for reevaluation, CBC, basic metabolic panel, and magnesium level. Bring these discharge instructions with you to that visit. 2. Tylenol 650 mg by mouth every 4 hours and/or OTC ibuprofen 2-3 tabs by mouth every 6 hours with food as directed./needed. You may stagger these medications for 48-72 hours only, which essentially means that you are receiving a pain medication about every 2 hours. 3. BenGay or equivalent, heating pad, and/or ice packs as directed. 4. Work excuse- See Form 5. Immediately after this visit verify that your cellular telephone's voicemail has been activated and is empty. Also verify that your home telephone 's answering machine is operating properly and has space to receive messages. Note that it is sometimes necessary for us to be able to contact you at a later date to discuss your medical care. 6. Please remember that we are ALWAYS here for you and want to answer any questions you may have. Feel free to call the hospital any time and we call you back LILLIAN. 7. Stop all tobacco use LILLIAN as directed/per provided information and consider contacting [employer]uit [employer]ne, etc.. 8. Obtain your influenza booster LILLIAN as discussed. Sepsis Event Note - Evaluation Sepsis Screening Result: No Definite Risk - Focused Exam Vital Signs: Vital Signs Temp Pulse Resp BP Pulse Ox 06/03/19 20:05 36.6 C 88 18 127/78 100 Date Exam was Performed: 06/03/19 Time Exam was Performed: 21:56 - Problem List & Annotations (1) Bronchitis SNOMED Code(s): 54795512 Code(s): J40 - BRONCHITIS, NOT SPECIFIED ACUTE OR CHRONIC Status: Acute Priority: Medium Onset Date: ~05/22/19 Annotation/Comment:: Probable viral bronchitis. Patient was not able to provide us with a sputum specimen. Note WBC elevation likely secondary to patient's recent prednisone therapy with only one day of prednisone remaining. She also is completing her last day of Zithromax tomorrow. Various therapeutic options were discussed with the patient. Secondary to her previous history of recurrent C. difficile colitis no further antibiotics will be given at this time with the patient being in agreement with this treatment plan. Close follow-up by her regular provider. [employer]cat Work excuse provided. (2) Pleurisy SNOMED Code(s): 690118053 Code(s): R09.1 - PLEURISY Status: Acute Priority: High Onset Date: ~10/12 Annotation/Comment:: IM Depo-Medrol given. Symptomatic relief as per discharge instructions. (3) Asthma SNOMED Code(s): 144715803 Code(s): J45.909 - UNSPECIFIED ASTHMA, UNCOMPLICATED Status: Acute Priority: High Annotation/Comment:: No significant asthma exacerbation. Continue when necessary inhaler use. Qualifiers: Asthma severity: mild Asthma persistence: intermittent Asthma complication type: uncomplicated Qualified Code(s): J45.20 - Mild intermittent asthma, uncomplicated (4) Hypomagnesemia SNOMED Code(s): 990891585 Code(s): E83.42 - HYPOMAGNESEMIA Status: Acute Priority: High Onset Date: 09/24/18 Annotation/Comment:: She has been noncompliant with her magnesium supplementation. This will be reinitiated LILLIAN with close follow-up by her regular provider as per discharge instructions. (5) Mixed anxiety depressive disorder SNOMED Code(s): 502336142 Code(s): F41.8 - OTHER SPECIFIED ANXIETY DISORDERS Status: Acute Priority : Medium Onset Date: 09/24/18 Annotation/Comment:: Poor control based on today's evaluation with no current medical therapy. Continue to observe closely by regular provider. (6) URI (upper respiratory infection) SNOMED Code(s): 56368968 Code(s): J06.9 - ACUTE UPPER RESPIRATORY INFECTION, UNSPECIFIED Status: Acute Priority: Medium Onset Date: 05/22/19 Annotation/Comment:: As above Qualifiers: URI type: acute tracheitis Airway obstruction: without obstruction Qualified Code(s): J04.10 - Acute tracheitis without obstruction (7) Tobacco abuse counseling SNOMED Code(s): 257061286, 255455757, 796233395 Code(s): Z71.6 - TOBACCO ABUSE COUNSELING Status: Chronic Priority: Medium Annotation/Comment:: Tobacco cessation strongly encouraged with information provided at discharge. - Problem List Review Problem List Initiated/Reviewed/Updated: Yes - My Orders Last 24 Hours: My Active Orders 06/03/19 20:32 Communication Order [RC] ROUTINE Up With Assistance [RC] ASDIRECTED Chest 2V [CR] Stat CULTURE SPUTUM + SMEAR [RM] Urgent Sodium Chloride 0.9% [Saline Flush] 10 ml FLUSH ASDIRECTED PRN Obtain Past Medical Record [OM.PC] Stat Peripheral IV Insertion Adult [OM.PC] Stat 06/03/19 20:34 Peripheral IV Care [RC] . DIRECTED 06/03/19 20:40 CULTURE STREP A CONFIRMATION [RM] Stat STREP SCRN A RAPID W CULT CONF [RM] Stat 06/03/19 20:42 Sinus Comp Min 3V [CR] Stat 06/03/19 20:50 CULTURE URINE [RM] Routine 06/03/19 Breakfast Nothing Per Oral Diet [DIET] - Assessment/Plan Last 24 Hours: My Active Orders 06/03/19 20:32 Communication Order [RC] ROUTINE Up With Assistance [RC] ASDIRECTED Chest 2V [CR] Stat CULTURE SPUTUM + SMEAR [RM] Urgent Sodium Chloride 0.9% [Saline Flush] 10 ml FLUSH ASDIRECTED PRN Obtain Past Medical Record [OM.PC] Stat Peripheral IV Insertion Adult [OM.PC] Stat 06/03/19 20:34 Peripheral IV Care [RC] . DIRECTED 06/03/19 20:40 CULTURE STREP A CONFIRMATION [RM] Stat STREP SCRN A RAPID W CULT CONF [RM] Stat 06/03/19 20:42 Sinus Comp Min 3V [CR] Stat 06/03/19 20:50 CULTURE URINE [RM] Routine 06/03/19 Breakfast Nothing Per Oral Diet [DIET] Assessment:: As above Plan: As above. Extensive precautions were given to the patient, who is in agreement with the treatment plan. See Patient Instructions for further treatment and plan.
[2019-06-03] MEDS ORDERED: Sodium Chloride 0.9% 10 ML Syringe FLUSH PRN (20:32)
[2019-06-03 21:18] LABS: CHLORIDE,CL 106 mmol/L (98-107); SODIUM,NA 140 mmol/L (136-145)
[2019-06-03] MEDS: methylPREDNISolone Acetate 80 MG/ML SDV IM ONE (21:47)
== END 2019-06-03 22:05 | disposition home or self-care (01) ==
LOC: LL.ED 20:04
DX: J45.20 Mild intermittent asthma, uncomplicated (principal); R09.1 Pleurisy; J04.10 Acute tracheitis without obstruction; F41.8 Other specified anxiety disorders; E83.42 Hypomagnesemia; Z71.6 Tobacco abuse counseling; F17.210 Nicotine dependence, cigarettes, uncomplicated; Z88.5 Allergy status to narcotic agent; Z79.899 Other long term (current) drug therapy
CPT/HCPCS: 36415; 71046; 80053; 81001; 82550; 82553; 83605; 83735; 85025; 87081; 87086; 87430; 87804; 96372; 99283-25; J1040

== ENCOUNTER 2019-07-15 07:20 | Day surgery (SDC) | payer BC ==
[2019-07-15] MEDS ORDERED: Lactated Ringers 1,000 ML IV SCH (07:30)
[2019-07-15] MEDS ORDERED: Sodium Chloride 0.9% 10 ML Syringe FLUSH PRN (07:30)
[2019-07-15] MEDS ORDERED: Propofol 200 MG/20 ML SDV ONE ×3 (07:57→08:50)
[2019-07-15] MEDS ORDERED: Ketamine 500 mg/10 ML MDV ONE ×2 (07:57→08:50)
[2019-07-15] MEDS ORDERED: Midazolam 1 MG/ML 2 ML SDV ONE ×3 (07:57→08:50)
[2019-07-15] MEDS ORDERED: Glycopyrrolate 0.2 MG/ML SDV ONE (08:50)
[2019-07-15] MEDS ORDERED: Lidocaine 2% 5 ML SDV ONE (08:50)
--- NOTE | 2019-07-15 09:27 | PCM.HPR ---
H & P Addendum review - H & P Addendum Review Date of Original H & P: 07/12/19 Date Reviewed: 07/15/19 Time Reviewed: 08:35 Patient was Examined: No Changes
--- NOTE | 2019-07-15 09:28 | PCM.OPNOTE ---
- General Post-Op/Procedure Note Date of Surgery/Procedure: 07/15/19 Operative Procedure(s): EGD with Bx Findings: Normal Pre Op Diagnosis: GERD Post-Op Diagnosis: Same Anesthesia Technique: MAC Primary Surgeon: Tom Hart Anesthesia Provider: Era Augustin Complications: None Condition: Good
--- NOTE | 2019-07-15 13:52 | OR ---
Date of Procedure: 07/15/2019 PREOPERATIVE DIAGNOSIS: GERD. POSTOPERATIVE DIAGNOSIS: GERD. PROCEDURE: EGD with biopsy. ANESTHESIA: IV sedation. PROCEDURE IN DETAIL: Patient was brought to the procedure room where she was placed on her left side and IV sedation administered. Oral bite block was placed and the upper endoscope advanced into the esophagus under direct vision without difficulty. Vocal cords and hypopharynx were visualized and photographed. Vocal cords appeared normal. I did not see any inflammation present. The scope was advanced through the esophagus to the third portion of the duodenum. Duodenum and pylorus were normal. Antrum and body of the stomach were normal. Retroflexion revealed a normal-appearing fundus. There was no hiatal hernia. These were all photographed. The esophagus was normal without any evidence of Bailey esophagitis, viral esophagitis, or reflux esophagitis. I did take some biopsies from the distal esophagus because of her symptoms. Air was removed and the scope withdrawn through the entire esophagus which appeared normal. Patient tolerated the procedure well and returned to recovery in stable condition. The patient will follow up with Sayra Head PA-C, next week for review of biopsies and ongoing evaluation. KIMBERLI GIBBS MD /[id number]
== END 2019-07-15 10:30 | disposition home or self-care (01) ==
LOC: LL.SDS 07:20
PROVIDERS: ATTEND Surgery
DX: K21.9 Gastro-esophageal reflux disease without esophagitis (principal); K12.1 Other forms of stomatitis; B37.81 Candidal esophagitis; B37.0 Candidal stomatitis; B37.3 Candidiasis of vulva and vagina; F17.210 Nicotine dependence, cigarettes, uncomplicated; E66.9 Obesity, unspecified; Z68.32 Body mass index [BMI] 32.0-32.9, adult; Z79.899 Other long term (current) drug therapy; Z88.5 Allergy status to narcotic agent; Z88.8 Allergy status to other drugs, medicaments and biological substances
CPT/HCPCS: 36415; 84703; J2001; J2250; J2704; J3490; J7120

== ENCOUNTER 2019-07-28 11:13 | Emergency (ER) | payer BC ==
--- NOTE | 2019-07-28 12:16 | EDM.PDOC ---
ED HPI GENERAL MEDICAL PROBLEM - General Chief Complaint: ENT Problem Stated Complaint: throat pain Time Seen by Provider: 07/28/19 11:39 Source of Information: Reports: Patient History Limitations: Reports: No Limitations - History of Present Illness INITIAL COMMENTS - FREE TEXT/NARRATIVE: Pt presents with persistent sore throat and dry mouth Has been seen previously several times by ENT, last being several days ago. Has had endoscopy and specialty lab testing Was started on Cefdinir today No fever today Duration: Chronic Location: Reports: Head, Face, Neck Treatments SR VICE PRESIDENT: Reports: NSAIDS Bilateral Jaw Pain Score (Numeric/FACES): 7 - Related Data Allergies Allergy/AdvReac Type Severity Reaction Status Date / Time codeine Allergy Hives Unverified 07/28/19 11:14 hydrocodone Allergy Itching Unverified 07/28/19 11:14 morphine Allergy Hives Unverified 07/28/19 11:14 nortriptyline Allergy Other Unverified 07/28/19 11:14 opium poppy Allergy Nausea and Unverified 07/28/19 11:14 Vomiting fennel seed Allergy Nausea and Uncoded 07/28/19 11:14 Vomiting Home Meds: Home Meds Magnesium Oxide 400 mg PO BID #60 tab 06/03/19 [Rx] Fluconazole [Diflucan] 100 mg PO DAILY 07/14/19 [History] L. Acidophilus/Pectin, Olivia Lopez De Gutierrez [Acidophilus Probiotic] 1 cap PO BID 07/14/19 [ History] Omeprazole 40 mg PO DAILY 07/14/19 [History] Fluticasone Propionate [Flonase] 1 spray NASBOTH DAILY PRN 07/15/19 [History] Cefdinir 300 mg PO DAILY 07/28/19 [History] Cevimeline HCl 1 cap PO DAILY 07/28/19 [History] Ibuprofen 3 tab PO Q6HR PRN 07/28/19 [History] Levothyroxine 1 tab PO DAILY 07/28/19 [History] Past Medical History HEENT History: Reports: Other (See Below) Other HEENT History: partial upper denture. recent thrush infection Cardiovascular History: Reports: High Cholesterol Respiratory History: Reports: Asthma, Other (See Below) Other Respiratory History: Hx. of pleurisy Gastrointestinal History: Reports: Inflammatory Bowel Disease Genitourinary History: Reports: Renal Calculus, Urinary Incontinence, UTI, Recurrent, Other (See Below) Other Genitourinary History: Current bilateral urolithiasis with spontaneous passage. MANAGER PACU History: Reports: Fibroids Other MANAGER PACU History: LMP Q 4 days. Blocked fallopian tubes secondary to previous abdominal surgeries as below. Dysmenorrhea. Musculoskeletal History: Reports: Arthritis, Back Pain, Chronic, Fracture, Neck Pain, Chronic, Other (See Below) Other Musculoskeletal History: Right multiple foot fractures secondary to lawnmower accident at about age 11. Neurological History: Reports: Migraines Other Neuro History: Head concussion 2016. Non-epileptic pseudoseizures as a teenager. Psychiatric History: Reports: Anxiety, Depression Endocrine/Metabolic History: Reports: Hyperthyroidism Other Endocrine/Metabolic History: history of Apulina's with no Synthroid supplementation required? Hypoalbuminemia. Hematologic History: Reports: None Immunologic History: Reports: None Oncologic (Cancer) History: Reports: Cervix, Other (See Below) Other Oncologic History: Precancerous atypia at age 18 requiring LEEP procedure as below. Dermatologic History: Reports: Eczema - Infectious Disease History Infectious Disease History: Reports: C-Difficile, Chicken Pox, Mononucleosis, Shingles - Past Surgical History Head Surgeries/Procedures: Reports: None HEENT Surgical History: Reports: Other (See Below) Other HEENT Surgeries/Procedures: jaw surgery Cardiovascular Surgical History: Reports: None Female Surgical History: Reports: D&C, LEEP, Tubal Ligation, Other (See Below ) Other Female Surgeries/Procedures: D&C, hysteroscopy, and lateral tubal ligation at time of laparoscopic abdominal/pelvic evaluation age 27. Apparent staple adhesions to the bladder at the time of appendectomy additional staple removal at time of above procedure at age 27. LEEP procedure at age 18. Multiple vaginal wart cryotherapies and subsequent excisions. Nabothian cyst excision. Musculoskeletal Surgical History: Reports: Other (See Below) Other Musculoskeletal Surgeries/Procedures:: jaw surgery Oncologic Surgical History: Reports: None Dermatological Surgical History: Reports: None - Past Imaging History Past Imaging History: Reports: CAT Scan (CT of the chest on 09/23/18.), MRI (Left hand including left thumb on 01/29/19.), Ultrasound (Pelvis on 09/30/18.) Social & Family History - Tobacco Use Smoking Status *Q: Current Every Day Smoker Years of Tobacco use: 21 Packs/Tins Daily: 0.5 Used Tobacco, but Quit: No - Caffeine Use Caffeine Use: Reports: Soda Other Caffeine Use: 4 per day - Recreational Drug Use Recreational Drug Use: No - Living Situation & Occupation Living situation: Reports: (2015.), with Family ( and stepchildren) Occupation: Employed ([employer]) ED ROS ENT - Review of Systems Review Of Systems: See Below HEENT: Reports: Sinus Problem, Throat Pain Respiratory: Reports: No Symptoms Cardiovascular: Reports: No Symptoms GI/Abdominal: Reports: No Symptoms ED EXAM, ENT - Physical Exam Exam: See Below Exam Limited By: No Limitations General Appearance: No Apparent Distress Ears: Normal TMs Nose: Normal Inspection, Normal Mucousa Mouth/Throat: Normal Inspection, Normal Oropharynx Head: Atraumatic Neck: Supple Course - Vital Signs Last Recorded V/S: Last Vital Signs Temp 96.7 F L 07/28/19 11:15 Pulse 88 07/28/19 11:36 Resp 18 07/28/19 11:15 BP 129/81 07/28/19 11:36 Pulse Ox 100 07/28/19 11:15 - Orders/Labs/Meds Labs: Laboratory Tests 07/28/19 Range/Units 11:51 WBC 5.5 (4.0-10.2) K/uL RBC 4.69 (3.77-5.09) M/uL Hgb 14.9 (11.7-15.5) g/dL Hct 43.0 (34.0-46.0) % MCV 91.7 (84.0-98.0) fL MCH 31.8 (28.2-33.3) pg MCHC 34.7 (31.7-36.0) g/dL RDW 12.5 (11.2-14.1) % Plt Count 221 (150-350) K/uL Neut % (Auto) 62.1 (45.0-80.0) % Lymph % (Auto) 26.4 (10.0-50.0) % Isabela % (Auto) 10.1 (2.0-14.0) % Eos % (Auto) 0.5 (0.0-5.0) % Baso % (Auto) 0.9 (0.0-2.0) % Neut # (Auto) 3.42 (1.40-7.00) K/uL Lymph # (Auto) 1.46 (0.50-3.50) K/uL Isabela # (Auto) 0.56 (0.00-1.00) K/uL Eos # (Auto) 0.03 (0.00-0.50) K/uL Baso # (Auto) 0.05 (0.00-0.20) K/uL - Re-Assessments/Exams Free Text/Narrative Re-Assessment/Exam: 07/28/19 12:14 See lab Departure - Departure Time of Disposition: 12:30 Disposition: Home, Self-Care 01 Clinical Impression: Sore throat - Discharge Information *PRESCRIPTION DRUG MONITORING PROGRAM REVIEWED*: Not Applicable *COPY OF PRESCRIPTION DRUG MONITORING REPORT IN PATIENT FRANCHESCA: Not Applicable Instructions: Sore Throat, [id number] Referrals: Sayra Head PA-C [Primary Care Provider] - Forms: ED Department Discharge Additional Instructions: Follow up in clinic Continue antibiotics Sepsis Event Note - Evaluation Sepsis Screening Result: No Definite Risk - Focused Exam Vital Signs: Vital Signs Temp Pulse Resp BP Pulse Ox 07/28/19 11:36 88 129/81 07/28/19 11:15 96.7 F L 81 18 151/88 H 100 Date Exam was Performed: 07/28/19 Time Exam was Performed: 12:12
== END 2019-07-28 12:12 | disposition home or self-care (01) ==
LOC: LL.ED 11:13
DX: J02.9 Acute pharyngitis, unspecified (principal); F41.9 Anxiety disorder, unspecified; F32.9 Major depressive disorder, single episode, unspecified; F17.210 Nicotine dependence, cigarettes, uncomplicated; Z79.899 Other long term (current) drug therapy; Z88.5 Allergy status to narcotic agent; Z88.8 Allergy status to other drugs, medicaments and biological substances
CPT/HCPCS: 36415; 85025; 99283

== ENCOUNTER 2019-10-28 07:52 | Day surgery (SDC) | payer BC ==
[2019-10-28] MEDS ORDERED: Sodium Chloride 0.9% 10 ML Syringe FLUSH PRN (08:00)
[2019-10-28] MEDS ORDERED: Lactated Ringers 1,000 ML IV SCH (08:00)
[2019-10-28] MEDS ORDERED: Midazolam 1 MG/ML 2 ML SDV ONE ×2 (08:32→09:00)
[2019-10-28] MEDS ORDERED: Propofol 200 MG/20 ML SDV ONE ×2 (08:33→09:00)
--- NOTE | 2019-10-28 09:05 | PCM.PN ---
- General Info Date of Service: 10/28/19 - Review of Systems Systems Review Comment:: 39-year-old female referred for colonoscopy. Her last colonoscopy was over 10 years ago. She has been having recent symptoms of change in bowel pattern. She has had episodes of profound constipation as well as unexplained diarrhea. There is also a family history of colon polyps. She is medically stable to proceed today. Her recent history and physical is reviewed and no significant changes are noted. I have discussed the proposed colonoscopy with the patient. Risks such as but not limited to bleeding and GI injury are reviewed. She agrees to proceed. - Patient Data Vitals - Most Recent: Last Vital Signs Temp 98.9 F 10/28/19 08:08 Pulse 100 10/28/19 08:08 Resp 20 10/28/19 08:08 BP 151/77 H 10/28/19 08:08 Pulse Ox 99 10/28/19 08:08 Weight - Most Recent: 81.193 kg Med Orders - Current: Current Medications Lactated Ringer's (Ringers, Lactated) 1,000 mls @ 125 mls/hr IV ASDIRECTED ETELVINA Sodium Chloride (Saline Flush) 10 ml FLUSH ASDIRECTED PRN PRN Reason: Keep Vein Open Discontinued Medications Midazolam HCl (Versed 1 Mg/Ml) Confirm Administered Dose 2 mg .ROUTE .STK-MED ONE Stop: 10/28/19 08:33 Propofol (Diprivan 20 Ml) Confirm Administered Dose 400 mg .ROUTE .STK-MED ONE Stop: 10/28/19 08:34 Sepsis Event Note - Focused Exam Vital Signs: Vital Signs Temp Pulse Resp BP Pulse Ox 10/28/19 08:08 98.9 F 100 20 151/77 H 99 Date Exam was Performed: 10/28/19 Time Exam was Performed: 09:03 - Problem List Review Problem List Initiated/Reviewed/Updated: Yes - My Orders Last 24 Hours: My Active Orders 10/28/19 08:00 Patient Status [ADT] Routine Peripheral IV Care [RC] . DIRECTED Verify Patient Consent Obtain [RC] ASDIRECTED Lactated Ringers [Ringers, Lactated] 1,000 ml IV ASDIRECTED Sodium Chloride 0.9% [Saline Flush] 10 ml FLUSH ASDIRECTED PRN Peripheral IV Insertion Adult [OM.PC] Routine - Assessment Assessment:: Change in bowel habits - Plan Plan:: Colonoscopy
--- NOTE | 2019-10-28 09:39 | PCM.OPNOTE ---
- General Post-Op/Procedure Note Date of Surgery/Procedure: 10/28/19 Operative Procedure(s): Colonoscopy with Biopsy Findings: Mild sigmoid diverticulosis Colon and terminal ileum otherwise appear normal Pre Op Diagnosis: Chamge in bowel habits Post-Op Diagnosis: Sigmoid Diverticulosis Anesthesia Technique: MAC Primary Surgeon: Maxx Sarabia Pathology: biopsies of terminal ileum and colon EBL in mLs: 2 Complications: None Condition: Good
--- NOTE | 2019-10-28 11:01 | OR ---
Date of Procedure: 10/28/2019 PREOPERATIVE DIAGNOSIS: Change in bowel habits. POSTOPERATIVE DIAGNOSIS: Sigmoid diverticulosis. OPERATIONS PERFORMED: Colonoscopy with biopsy. INDICATIONS FOR SURGERY: This is a 39-year-old female who has been having recent increased difficulty with change in bowel pattern. She has had profound constipation as well as episodes of unexplained diarrhea. She states that it has been more than 10 years since her last colonoscopy and she was referred for this exam. FINDINGS: The mucosa of the patient's colon and rectum appears normal. There is no visible signs of inflammation or erythema. The patient does have a mild degree of diverticulosis in the sigmoid region. A few small diverticula are seen, although these do not appear to be acutely inflamed, or otherwise, complicated. There is no unusual twisting or narrowing in the colon lumen. The examined terminal ileum also appeared normal with normal-appearing and not inflamed mucosa. DESCRIPTION OF PROCEDURE: The patient was taken to the operating room. She was given intravenous sedation, and with her in the left lateral decubitus position, digital rectal exam was performed. No rectal masses were noted. The Olympus colonoscope was inserted into the rectum. Retroflexed examination of the rectal canal was performed. The scope was then carefully advanced through the entire length of the colon until the cecum was reached. Cecal acquisition was confirmed by noting the normal cecal anatomy including the appendiceal orifice and ileocecal valve. The light was also noted to transilluminate the abdominal wall in the right lower quadrant. The ileocecal valve was cannulated and the terminal ileum examined. This appeared normal. Random biopsies of the mucosa of the terminal ileum were taken. The scope was then slowly withdrawn sequentially re-examining the colonic segments until the entire colon and rectum had been fully examined. During withdrawal of the scope, random biopsies were taken of the colon mucosa in both the right and left sides. After the exam had been completed and with no sign of any complication, the scope was removed and the patient was taken from the operating room in satisfactory condition. ESTIMATED BLOOD LOSS: 2 mL. COMPLICATIONS: None. PROGNOSIS: Good. KIMBERLI Sarabia MD /[id number]
== END 2019-10-28 10:36 | disposition home or self-care (01) ==
LOC: LL.SDS 07:52
PROVIDERS: ATTEND Surgery
DX: K57.30 Diverticulosis of large intestine without perforation or abscess without bleeding (principal); H10.33 Unspecified acute conjunctivitis, bilateral; R19.7 Diarrhea, unspecified; K21.0 Gastro-esophageal reflux disease with esophagitis; K58.1 Irritable bowel syndrome with constipation; F41.8 Other specified anxiety disorders; E66.9 Obesity, unspecified; F17.210 Nicotine dependence, cigarettes, uncomplicated; Z88.5 Allergy status to narcotic agent; Z88.8 Allergy status to other drugs, medicaments and biological substances; Z79.899 Other long term (current) drug therapy; Z68.30 Body mass index [BMI] 30.0-30.9, adult
CPT/HCPCS: J2250; J2704

== ENCOUNTER 2020-06-15 17:00 | Emergency (ER) | payer BC ==
[2020-06-15] MEDS ORDERED: methylPREDNISolone Acetate 80 MG/ML SDV IM ONE (17:10)
--- NOTE | 2020-06-15 17:10 | EDM.PDOC ---
ED HPI GENERAL MEDICAL PROBLEM - General Chief Complaint: General Stated Complaint: dizziness Time Seen by Provider: 06/15/20 17:00 Source of Information: Reports: Patient, Family (Daughter, Shellie), Old Records ([facility] EMR. No paper hospital chart available.) History Limitations: Reports: No Limitations - History of Present Illness INITIAL COMMENTS - FREE TEXT/NARRATIVE: The patient was brought to the emergency room via private automobile by her daughter for evaluation of moderate dizziness with symptoms starting at home at about 6 AM this morning. She has had some mild URI symptoms during the last couple of days with COVID-19 infection diagnosed on 04/25/2020. The patient also denies any recent fever, cough, wheezing, etc., although she has noted some occasional persistent dyspnea secondary to her recently diagnosed pulmonary histiocytosis. The patient denies any chest pain/pressure, heart flutter, orthostasis, orthopnea, diaphoresis, paresthesias, or any other anginal-type symptoms, although some decreased exercise tolerance since her COVID-19 infection with recently diagnosed histocytosis as above.. No recent history of abdominal pain, heartburn, nausea, diarrhea, melena, gross hematochezia, or any food intolerance, including fatty foods, etc.. She denies any gross hematuria, colic, or other UTI symptoms. No history of recent headaches, visual changes, diplopia, change in mental status, or other change in neurological status. She denies any pain at this time, however. Onset: Today, Sudden Onset Date: 06/15/20 Onset Time: 06:00 Duration: Intermittent Location: Reports: Other (No pain) Severity: Moderate (Dizziness) Improves with: Reports: Rest Worsens with: Reports: Movement (Especially head movement) Context: Denies: Sick Contact, Trauma Associated Symptoms: Reports: Shortness of Breath (As above). 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 Acidophilus/Pectin, [place] [Acidophilus Probiotic] 2 cap PO BID 07/14/19 [History] Omeprazole 40 mg PO DAILY 07/14/19 [History] Fluticasone Propionate [Flonase] 1 spray NASBOTH DAILY PRN 07/15/19 [History] Loratadine [Claritin] 10 mg PO DAILY 10/28/19 [History] Cholecalciferol (Vitamin D3) [Vitamin D3] 1 tab PO DAILY 06/15/20 [History] Levothyroxine Sodium [Levothyroxine] 150 mcg PO DAILY 06/15/20 [History] Meclizine [Antivert] 25 mg PO Q6H PRN #30 tab.chew 06/15/20 [Rx] Past Medical History HEENT History: Reports: Allergic Rhinitis, Otitis Media, Sinusitis, Other (See Below). Denies: Cataract, Glaucoma, Hard of Hearing, Impaired Vision, Macular Degeneration Other HEENT History: History of oral thrush with antibiotic and/or steroid the rapy. 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 Recurrent otitis media without previous PE tubes. Environmental and food allergies. Eustachian tube dysfunction. Cardiovascular History: Reports: Arrhythmia, High Cholesterol, Other (See Below). Denies: Afib, Aneurysm, Blood Clots/VTE/DVT, CAD, Cardiomyopathy, Heart Failure, Heart Murmur, Hypertension, NE, PVD, Syncope Other Cardiovascular History: Unknown type of cardiac arrhythmia in May 2020 currently being evaluated by her regular provider. Respiratory History: Reports: Asthma, Bronchitis, Recurrent, Other (See Below). 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 Hx. of pleurisy with bronchitis. Gastrointestinal History: Reports: Chronic Constipation, Chronic Diarrhea, Diverticulosis, Irritable Bowel Syndrome, Other (See Below). Denies: Celiac Disease, Cholelithiasis, Colon Polyp, Fatty Liver, Fecal Incontinence, Gastritis, GERD, GI Bleed, Hepatitis, Helicobacter Pylori, Hiatal Hernia, Inflammatory Bowel Disease, Jaundice, Pancreatitis, PUD Other Gastrointestinal History: Sigmoid diverticulosis by colonoscopy with additional history of irritable bowel syndrome bowel problems for many years. Genitourinary History: Reports: Renal Calculus, Urinary Incontinence, UTI, Recurrent, Other (See Below). Denies: Acute Renal Failure, Chronic Renal Insuffiency, STD Other Genitourinary History: Urinary hesitancy with recurrent UTIs. Recurrent bilateral urolithiasis with spontaneous passage. TURF KEEPER History: Reports: Dysfunctional Uterine Bleeding, Fibroids. Denies: , Spontaneous : 0 Other TURF KEEPER History: LMP Q 2124 days. Blocked fallopian tubes secondary to previous abdominal surgeries as below. Dysmenorrhea. Musculoskeletal History: Reports: Arthritis, Back Pain, Chronic, Fracture, Neck Pain, Chronic, Osteoarthritis, Other (See Below). Denies: Gout, Muscular Dystrophy, Osteoporosis, SLE Other Musculoskeletal History: Right multiple foot fracture secondary to lawnmower accident at about age 11. De Quervains disease (radial styloid tenosynovitis) Neurological History: Reports: Concussion, Headaches, Chronic, Head Trauma, Migraines, Seizure, Vertigo. Denies: Brain Injury, Cerebral Aneurysms, CVA, MS, Neuropathy, Peripheral, Parkinson's, TIA Other Neuro History: Head concussion 2016 with subsequent occasional occasional episodes of vertigo and headaches. Non-epileptic pseudoseizures as a teenager. Psychiatric History: Reports: Anxiety, Depression. Denies: Abuse, Victim of, ADD, ADHD, Addiction, Alzheimers Disease, Dementia, Psych Hospitalization(s), PTSD, Suicide Attempt, Suicidal Ideation Endocrine/Metabolic History: Reports: Hypomagnesemia, Hypothyroidism, Multinodular Thyroid, Obesity/BMI 30+, Other (See Below). Denies: Diabetes, Gestational, Diabetes, Type I, Diabetes, Type II, Diabetes Mellitus, Type 3c, IDDM Other Endocrine/Metabolic History: Paulina's thyroiditis. Hypoalbuminemia. Idiopathic hypocalcemia. Hematologic History: Reports: None. Denies: Anemia, B12 Deficiency, Blood Transfusion(s), Iron Deficiency Immunologic History: Reports: None Oncologic (Cancer) History: Reports: Cervix, Other (See Below). 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 Dermatologic History: Reports: Eczema - Infectious Disease History Infectious Disease History: Reports: C-Difficile (C. difficile colitis in September 2017.), Chicken Pox, Influenza, Mononucleosis (At about age [age].), Novel Coronavirus (04/25/2020), Shingles (Left arm at about age 8.). Denies: Measles, Meningitis, MRSA, Mumps, Pertussis (Whooping Cough), Rheumatic Fever, RSV, Rubella, Scarlet Fever, TB, VRE - Past Surgical History Head Surgeries/Procedures: Reports: None HEENT Surgical History: Reports: Adenoidectomy, Oral Surgery, Tonsillectomy, Other (See Below). Denies: Cataract Surgery, Eye Surgery, Laser Surgery, LASIK, Myringotomy w Tube(s), Naso-Sinus Surgery Other HEENT Surgeries/Procedures: Apparent cauterization of vocal cords in February 2020 and on 04/10/2020 secondary to mild vocal cord hemorrhages. Multiple teeth extractions with partial upper dentures. Right-sided mandibular cyst excision in 2014. Tonsillectomy and adenoidectomy at age 16. Cardiovascular Surgical History: Reports: None. Denies: Varicose Respiratory Surgical History: Reports: None. Denies: Thoracentesis GI Surgical History: Reports: Appendectomy, Colonoscopy, EGD, Other (See Below). Denies: Cholecystectomy, Esophageal Dilatation, Hernia, Abdominal, Hernia, Inguinal, Hernia Repair/Other, Polypectomy Other GI Surgeries/Procedures: Appendectomy at age 14. EGD with negative biopsies on 07/15/2019. Colonoscopy with negative biopsies on 10/28/2019. Previous colonoscopies in about 1999 and 2001. Female Surgical History: Reports: D&C, LEEP, Tubal Ligation, Other (See Below). Denies: Hysterectomy, Salpingo-Oophorectomy Other Female Surgeries/Procedures: D&C, hysteroscopy, and bilateral tubal ligation at time of laparoscopic abdominal/pelvic evaluation age 27. Apparent staple adhesions to the bladder at the time of appendectomy with additional staple removal at time of above procedure at age 27. LEEP procedure at age 18. Multiple vaginal wart cryotherapies and subsequent excisions. Nabothian cyst excision. Endocrine Surgical History: Reports: None. Denies: Thyroid Biopsy Neurological Surgical History: Reports: None. Denies: C-Spine, Discectomy, Laminectomy, Lumbar Spine, Sacral Spine, Spinal Fusion, Vertebroplasty Musculoskeletal Surgical History: Reports: None. Denies: Arthroscopic Knee, Arthroscopic Procedure, Carpal Tunnel, Ganglion Cyst, Joint Replacement, ORIF, Shoulder Replacement, Shoulder Surgery Oncologic Surgical History: Reports: None Dermatological Surgical History: Reports: None - Past Imaging History Past Imaging History: Reports: CAT Scan (CT of the chest, abdomen, and pelvis all with IV contrast on 06/10/2019. CT scan of the abdomen and pelvis on 10/05/2019. CT of the chest at the [facility] in May [address] of the chest on 09/23/18.), Mammogram (Last mammogram on 11/05/2019.), MRI (Left hand including left thumb on 01/29/19.), Ultrasound (Thyroid ultrasound on 020. Pelvis on 09/30/18.), Venous Doppler (Negative venous Doppler study of the left leg on 07/19/2019.) Social & Family History - Family History Respiratory: Reports: COPD, Other (See Below) Other Respiratory Family Hisory: Mother with fatal COPD at age 70 with previous history of tobacco use. - Tobacco Use Tobacco Use Status *Q: Former Tobacco User Tobacco Use Within Last Twelve Months: Cigarettes Years of Tobacco use: 23 Packs/Tins Daily: 1 Packs/Tins Daily Comment: Smoked between ages 16 and 39 with discontinued tobacco use in late 2019 secondary to pulmonary disease as above. Used Tobacco, but Quit: Yes Smoking Cessation Information Provided To Patient: No Second Hand Smoke Exposure: No Second Hand Smoke Education Provided: No - Caffeine Use Caffeine Use: Reports: Soda (4 sodas per day). Denies: Coffee, Energy Drinks, Tea - Alcohol Use Alcohol Use History: Yes Days Per Week of Alcohol Use: 0 Number of Drinks Per Day: 6 Number of Drinks Per Day Comment: Usually mixed drinks on special occasions or holidays. No previous DWIs, problems with alcohol abuse, etc. 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 Denies: Amphetamines (Speed), Cocaine, Dextromethorphan (Cough Syrup), Heroin, Inhalants (Glues, Solvents, Aerosols), LSD (Acid), Methamphetamine, Morphine, Oxycodone - Living Situation & Occupation Living situation: Reports: (2015.), with Family ( and stepchildren) Occupation: Employed ([employer], although currently on leave secondary to her pulmonary disease.) ED ROS GENERAL - Review of Systems Review Of Systems: Comprehensive ROS is negative, except as noted in HPI. ED EXAM, GENERAL - Physical Exam Exam: See Below Exam Limited By: No Limitations General Appearance: Alert, WD/WN, No Apparent Distress, Anxious (Moderate) Eye Exam: Bilateral Eye: EOMI, Normal Fundi, Normal Inspection (No nystagmus, however vertigo with head movement), PERRL Ears: Normal External Exam, Normal Canal, Hearing Grossly Normal, Normal TMs Nose: Normal Inspection, Normal Mucosa, No Blood, Clear Rhinorrhea. No: Nasal Tenderness, Nasal Swelling Throat/Mouth: Normal Inspection, Normal Lips, Normal Teeth (Partial upper dentures with multiple missing teeth lowers but no acute infection), Normal Gums, Normal Oropharynx, Normal Voice, No Airway Compromise. No: Dysphagia, Inflammation, Perioral Cyanosis Head: Atraumatic, Normocephalic. No: Facial Swelling, Facial Tenderness, Sinus Tenderness Neck: Normal Inspection, Supple, Non-Tender, Full Range of Motion. No: Lymphadenopathy (L), Lymphadenopathy (R), Thyromegaly Respiratory/Chest: No Respiratory Distress, Lungs Clear, Normal Breath Sounds, No Accessory Muscle Use, Chest Non-Tender. No: Pleural Rub, Retractions Cardiovascular: Normal Peripheral Pulses, Regular Rate, Rhythm, No Edema, No Gallop, No JVD, No Murmur, No Rub. No: Gallop/S3, Gallop/S4, Friction Rub Peripheral Pulses: 2+: Radial (L), Radial (R), Dorsalis Pedis (L), Dorsalis Pedis (R) GI/Abdominal: Normal Bowel Sounds, Soft, Non-Tender, No Organomegaly, No Distention, No Abnormal Bruit, No Mass, Other (Obese). No: Guarding (Female) Exam: Deferred Rectal (Female) Exam: Deferred Back Exam: Normal Inspection, Full Range of Motion. No: CVA Tenderness (L), CVA Tenderness (R), Muscle Spasm Extremities: Normal Inspection, Normal Range of Motion, Non-Tender, No Pedal Edema, Normal Capillary Refill. No: Colleen's Sign Neurological: Alert, Oriented, CN II-XII Intact, Normal Cognition, Normal Gait, Normal Reflexes, No Motor/Sensory Deficits, Other (Negative Babinski's, finger to nose, and pronator rotation tests. No evidence of facial paresis, tongue deviation, orthostasis, etc.. Excellent reverse thought processes.) Psychiatric: Anxious (Moderate), Depressed Mood (Mild) Skin Exam: Warm, Dry, Intact, Normal Color, No Rash. No: Diaphoretic, Ecchymosis, Wound/Incision Lymphatic: No Adenopathy Course - Vital Signs Last Recorded V/S: Last Vital Signs Temp 36.5 C 06/15/20 17:05 Pulse 68 06/15/20 17:05 Resp 18 06/15/20 17:05 BP 135/75 06/15/20 17:05 Pulse Ox 95 06/15/20 17:05 Vital Signs - 24 hr 06/15/20 17:05 Temperature [ 36.5 C Temporal] Pulse, 68 Peripheral [ Left Pulse Oximetry] Respiratory 18 Rate Blood Pressure 135/75 [Left Upper Arm ] O2 Sat by Pulse 95 Oximetry - Orders/Labs/Meds Orders: Active Orders 24 hr Category Date Time Status Obtain Past Medical Record [OM.PC] Routine Oth 06/15/20 17:10 Active Labs: None Meds: Medications Discontinued Medications Generic Name Dose Route Start Last Admin Trade Name Freq PRN Reason Stop Dose Admin Methylprednisolone Acetate 80 mg 06/15/20 17:10 06/15/20 17:19 Depo-Medrol IM 06/15/20 17:11 80 mg ONETIME ONE Administration - Radiology Interpretation Free Text/Narrative:: None Departure - Departure Time of Disposition: 17:30 Disposition: Home, Self-Care 01 Condition: Good Clinical Impression: Mixed anxiety depressive disorder, Hypothyroidism (acquired), Obesity (BMI 30- 39.9), Vertigo, Adult PLCH (pulmonary Langerhans cell histiocytosis) Asthma Qualifiers: Asthma severity: mild Asthma persistence: intermittent Asthma complication type: uncomplicated Qualified Code(s): J45.20 - Mild intermittent asthma, uncomplicated - Discharge Information *PRESCRIPTION DRUG MONITORING PROGRAM REVIEWED*: Not Applicable *COPY OF PRESCRIPTION DRUG MONITORING REPORT IN PATIENT FRANCHESCA: Not Applicable Prescriptions: Meclizine [Antivert] 25 mg PO Q6H PRN #30 tab.chew PRN Reason: Dizziness Instructions: Vertigo, [id number] Referrals: PCP,None [Primary Care Provider] - Forms: ED Department Discharge Additional Instructions: 1. Follow up with your regular provider in 10-14 days as needed, if symptoms persist. Bring these discharge instructions with you to that visit.. 2. Further cardiac work-up through your regular provider depending on your clinical course as discussed 3. Injury/fall precautions as discussed 4. Sedation, dry mouth, etc. precautions as discussed 5. Congratulations about quitting smoking 6. Immediately after this visit verify that your cellular telephone's voicemail has been activated and is empty. Also verify that your home telephone's answering machine is operating properly and has space to receive messages. Note that it is sometimes necessary for us to be able to contact you at a later date to discuss your medical care. 7. Please remember that we are ALWAYS here for you and want to answer any questions you may have. Feel free to call the hospital any time and we call you back LILLIAN. Sepsis Event Note (ED) - Evaluation Sepsis Screening Result: No Definite Risk - Focused Exam Vital Signs: Vital Signs Temp Pulse Resp BP Pulse Ox 06/15/20 17:05 36.5 C 68 18 135/75 95 - Problem List & Annotations (1) Vertigo SNOMED Code(s): 757778953 Code(s): R42 - DIZZINESS AND GIDDINESS Status: Acute Priority: High Onset Date: 06/15/20 Annotation/Comment:: Symptomatic relief as per discharge instructions. Various therapeutic options were discussed with the patient especially in light of her recent COVID-19 infection no neurological deficits by today's exam. The patient wishes to consider possible CT of the head depending on her clinical course, which is very reasonable. (2) Adult PLCH (pulmonary Langerhans cell histiocytosis) SNOMED Code(s): 372494074890125 Code(s): J84.82 - ADULT PULMONARY LANGERHANS CELL HISTIOCYTOSIS Status: Chronic Priority: High Annotation/Comment:: By patient history currently under close observation by the pulmonary department at the [facility] in [place]. Apparent recent CT scan of the chest at the [facility] 2 days ago. Additional PFTs at that time, which were normal. Continue close follow-up by her business relations manager as already scheduled. No recent fever or bronchitic type symptoms. (3) Asthma SNOMED Code(s): 454006994 Code(s): J45.909 - UNSPECIFIED ASTHMA, UNCOMPLICATED Status: Acute Priority: High Annotation/Comment:: No significant asthma exacerbation, despite recent COVID-19 infection on 04/25/2020. Per business relations manager wishes her regular provider to follow her symptoms closely with consideration of possible further cardiac work-up in the future by the patient's history. Qualifiers: Asthma severity: mild Asthma persistence: intermittent Asthma complication type: uncomplicated Qualified Code(s): J45.20 - Mild intermittent asthma, uncomplicated (4) Hypothyroidism (acquired) SNOMED Code(s): 155180460 Code(s): E03.9 - HYPOTHYROIDISM, UNSPECIFIED Status: Acute Priority: High Annotation/Comment:: Recently diagnosed Paulina's disease with recently initiated Synthroid supplementation. Close follow-up by regular provider. (5) Mixed anxiety depressive disorder SNOMED Code(s): 202521253 Code(s): F41.8 - OTHER SPECIFIED ANXIETY DISORDERS Status: Acute Priority: Medium Onset Date: 09/24/18 Annotation/Comment:: Poor control based on today's evaluation with no current medical therapy. Continue to observe closely by regular provider. (6) Obesity (BMI 30-39.9) SNOMED Code(s): 772330799, 073845479 Code(s): E66.9 - OBESITY, UNSPECIFIED Status: Chronic Priority: High Annotation/Comment:: Patient has gained 51 pounds since stopping smoking, although she was congratulated about her tobacco cessation. Note recently diagnosed hypothyroidism as above. Weight loss in moderation is advisable. Close follow-up by her regular provider. - Problem List Review Problem List Initiated/Reviewed/Updated: Yes - My Orders Last 24 Hours: My Active Orders 06/15/20 17:10 Obtain Past Medical Record [OM.PC] Routine - Assessment/Plan Last 24 Hours: My Active Orders 06/15/20 17:10 Obtain Past Medical Record [OM.PC] Routine Assessment:: As above Plan: As above. Extensive precautions were given to the patient and her daughter, who are in agreement with the treatment plan. See Patient Instructions for further treatment and plan.
== END 2020-06-15 17:35 | disposition home or self-care (01) ==
LOC: LL.ED 17:00
DX: J45.20 Mild intermittent asthma, uncomplicated (principal); F41.8 Other specified anxiety disorders; E03.9 Hypothyroidism, unspecified; E66.9 Obesity, unspecified; J84.82 Adult pulmonary Langerhans cell histiocytosis; Z88.5 Allergy status to narcotic agent; Z91.018 Allergy to other foods; Z79.899 Other long term (current) drug therapy; Z87.891 Personal history of nicotine dependence
CPT/HCPCS: 96372; 99283; J1040

== ENCOUNTER 2020-11-19 19:21 | Emergency (ER) | payer BC ==
[2020-11-19] MEDS ORDERED: Sodium Chloride 0.9% 10 ML Syringe FLUSH PRN (19:34)
[2020-11-19 20:13] LABS: CHLORIDE,CL 105 mmol/L (98-107); SODIUM,NA 138 mmol/L (136-145)
[2020-11-19] MEDS ORDERED: Furosemide 40 MG/4 ML VIAL IVPUSH ONE (20:21)
--- NOTE | 2020-11-19 20:31 | EDM.PDOC ---
ED HPI GENERAL MEDICAL PROBLEM - General Chief Complaint: Respiratory Problem Stated Complaint: Shortness of breath, edema Time Seen by Provider: 11/19/20 19:57 Source of Information: Reports: Patient History Limitations: Reports: No Limitations - History of Present Illness INITIAL COMMENTS - FREE TEXT/NARRATIVE: Patient comes to ER complaining of feeling tight all over/puffy/unable to wear many of her pants. Getting breathless more easily with activity. Lower legs ache from the edema. Has had edema around thighs in past that went away with a few days of Lasix. Has not had a significant issue before with feet swelling. Symptoms started while patient was vacationing in [facility]. Thinks she was a bit allergic to the area/had some rhinitis issues. Did not weigh herself to see how much weight she gained. Has handheld inhaler and tried that a few times, did not seem to make a difference. No fevers/chills. No other HEENT changes. No productive cough/chest pain. No abdominal discomfort/nausea/emesis/bowel changes. No pain with urination/hematuria but says her urine stream has diminished and is more of a dribble. Has been diagnosed with urinary hesitancy in past and had unremarkable workup. No focal neuro changes. No other acute complaints. Patient has complicated past medical history including Pulmonary Langerhans Cell Histiocytosis, hypothyroidism, asthma, IBS, anxiety/depressive disorder, obesity. - Related Data Allergies Allergy/AdvReac Type Severity Reaction Status Date / Time codeine Allergy Hives Verified 11/19/20 20:14 hydrocodone Allergy Itching Verified 11/19/20 20:14 morphine Allergy Hives Verified 11/19/20 20:14 nortriptyline Allergy Other Verified 11/19/20 20:14 opium poppy Allergy Nausea and Verified 11/19/20 20:14 Vomiting tramadol Allergy Unknown Verified 11/19/20 20:14 fennel seed Allergy Nausea and Uncoded 11/19/20 20:14 Vomiting Home Meds: Home Meds Magnesium Oxide 400 mg PO BID #60 tab 06/03/19 [Rx] L. Acidophilus/Pectin, [place] [Acidophilus Probiotic] 2 cap PO BID 07/14/19 [History] Omeprazole 40 mg PO DAILY 07/14/19 [History] Fluticasone Propionate [Flonase] 1 spray NASBOTH DAILY PRN 07/15/19 [History] Loratadine [Claritin] 10 mg PO DAILY 10/28/19 [History] Cholecalciferol (Vitamin D3) [Vitamin D3] 1 tab PO DAILY 06/15/20 [History] Levothyroxine Sodium [Levothyroxine] 150 mcg PO DAILY 06/15/20 [History] Meclizine [Antivert] 25 mg PO Q6H PRN #30 tab.chew 06/15/20 [Rx] Furosemide [Lasix] 40 mg PO DAILY #3 tab 11/19/20 [Rx] Past Medical History HEENT History: Reports: Allergic Rhinitis, Otitis Media, Sinusitis, Other (See Below) Other HEENT History: History of oral thrush with antibiotic and/or steroid therapy. 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 Recurrent otitis media without previous PE tubes. Environmental and food allergies. Eustachian tube dysfunction. Cardiovascular History: Reports: Arrhythmia, High Cholesterol, Other (See Below) Other Cardiovascular History: Unknown type of cardiac arrhythmia in May 2020 currently being evaluated by her regular provider. 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 Hx. of pleurisy with bronchitis. Gastrointestinal History: Reports: Chronic Constipation, Chronic Diarrhea, Diverticulosis, Irritable Bowel Syndrome, Other (See Below) Other Gastrointestinal History: Sigmoid diverticulosis by colonoscopy with additional history of irritable bowel syndrome bowel problems for many years. Genitourinary History: Reports: Renal Calculus, Urinary Incontinence, UTI, Recurrent, Other (See Below) Other Genitourinary History: Urinary hesitancy with recurrent UTIs. Recurrent bilateral urolithiasis with spontaneous passage. ONLINE ADVERTISING ANALYST History: Reports: Dysfunctional Uterine Bleeding, Fibroids Other ONLINE ADVERTISING ANALYST History: LMP Q 2123 days. Blocked fallopian tubes secondary to previous abdominal surgeries as below. Dysmenorrhea. Musculoskeletal History: Reports: Arthritis, Back Pain, Chronic, Fracture, Neck Pain, Chronic, Osteoarthritis, Other (See Below) Other Musculoskeletal History: Right multiple foot fracture secondary to lawnmower accident at about age 11. De Quervains disease (radial styloid tenosynovitis) Neurological History: Reports: Concussion, Headaches, Chronic, Head Trauma, Migraines, Seizure, Vertigo Other Neuro History: Head concussion 2015 with subsequent occasional occasional episodes of vertigo and headaches. Non-epileptic pseudoseizures as a teenager. Psychiatric History: Reports: Anxiety, Depression Endocrine/Metabolic History: Reports: Hypomagnesemia, Hypothyroidism, Multinodular Thyroid, Obesity/BMI 30+, Other (See Below) Other Endocrine/Metabolic History: Paulina's thyroiditis. Hypoalbuminemia. Idiopathic hypocalcemia. Hematologic History: Reports: None Other Hematologic History: hypoalbuminemia. 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 Dermatologic History: Reports: Eczema - Infectious Disease History Infectious Disease History: Reports: C-Difficile, Chicken Pox, Influenza, Mononucleosis, Novel Coronavirus, Shingles - Past Surgical History Head Surgeries/Procedures: Reports: None HEENT Surgical History: Reports: Adenoidectomy, Oral Surgery, Tonsillectomy, Other (See Below) Other HEENT Surgeries/Procedures: Apparent cauterization of vocal cords in February 2020 and on 04/10/2020 secondary to mild vocal cord hemorrhages. Multiple teeth extractions with partial upper dentures. Right-sided mandibular cyst excision in 2014. Tonsillectomy and adenoidectomy at age 16. Cardiovascular Surgical History: Reports: None Respiratory Surgical History: Reports: None GI Surgical History: Reports: Appendectomy, Colonoscopy, EGD, Other (See Below) Other GI Surgeries/Procedures: Appendectomy at age 14. EGD with negative biopsies on 07/15/2019. Colonoscopy with negative biopsies on 10/28/2019. Previous colonoscopies in about 1999 and 2001. Female Surgical History: Reports: D&C, LEEP, Tubal Ligation, Other (See Below) Other Female Surgeries/Procedures: D&C, hysteroscopy, and bilateral tubal ligation at time of laparoscopic abdominal/pelvic evaluation age 27. Apparent staple adhesions to the bladder at the time of appendectomy with additional staple removal at time of above procedure at age 27. LEEP procedure at age 18. Multiple vaginal wart cryotherapies and subsequent excisions. Nabothian cyst excision. Endocrine Surgical History: Reports: None Neurological Surgical History: Reports: None Musculoskeletal Surgical History: Reports: None Other Musculoskeletal Surgeries/Procedures:: jaw surgery Oncologic Surgical History: Reports: None Dermatological Surgical History: Reports: None - Past Imaging History Past Imaging History: Reports: CAT Scan (CT of the chest, abdomen, and pelvis all with IV contrast on 06/10/2019. CT scan of the abdomen and pelvis on 10/05/2019. CT of the chest at the [facility] in May [address] of the chest on 09/23/18.), Mammogram (Last mammogram on 11/05/2019.), MRI (Left hand including left thumb on 01/29/19.), Ultrasound (Thyroid ultrasound on 06/21/2019. Pelvis on 09/30/18.), Venous Doppler (Negative venous Doppler study of the left leg on 07/19/2019.) Social & Family History - Family History Respiratory: Reports: COPD, Other (See Below) Other Respiratory Family Hisory: Mother with fatal COPD at age 70 with previous history of tobacco use. - Tobacco Use Tobacco Use Status *Q: Former Tobacco User Used Tobacco, but Quit: Yes Month/Year Tobacco Last Used: 2019 - Caffeine Use Caffeine Use: Reports: Soda (4 sodas per day). Denies: Coffee, Energy Drinks, Tea Other Caffeine Use: 4 per day - Living Situation & Occupation Living situation: Reports: (2014.), with Family ( and stepchildren) Occupation: Employed ([employer], although currently on leave secondary to her pulmonary disease.) ED ROS GENERAL - Review of Systems Review Of Systems: Comprehensive ROS is negative, except as noted in HPI. ED EXAM, GENERAL - Physical Exam Exam: See Below Exam Limited By: No Limitations General Appearance: Alert, No Apparent Distress, Obese Eye Exam: Bilateral Eye: EOMI, PERRL Ears: Hearing Grossly Normal Nose: No: Nasal Deformity, Nasal Swelling, Nasal Drainage Throat/Mouth: Normal Lips, Normal Voice, No Airway Compromise Head: Atraumatic, Normocephalic Neck: Supple, Non-Tender, Full Range of Motion Respiratory/Chest: No Respiratory Distress, Lungs Clear, Normal Breath Sounds, N o Accessory Muscle Use, Chest Non-Tender Cardiovascular: Regular Rate, Rhythm, No Murmur GI/Abdominal: Soft, Non-Tender (Female) Exam: Deferred Rectal (Female) Exam: Deferred Back Exam: No: Muscle Spasm Extremities: Normal Capillary Refill, Pedal Edema. No: Colleen's Sign, Increased Warmth, Mottled, Pallor, Redness Neurological: Alert, Oriented, Normal Cognition, Normal Gait Psychiatric: Anxious Skin Exam: Warm, Dry, Intact, Normal Color #1 Interpretation EKG Date: 11/19/20 Time: 19:48 Rhythm: NSR Rate (Beats/Min): 75 [place]: Normal P-Wave: Present QRS: Normal ST-T: Normal QT: Normal Comparison: NA - No Prior EKG Course - Vital Signs Last Recorded V/S: Last Vital Signs Temp 36.7 C 11/19/20 19:25 Pulse 74 11/19/20 19:25 Resp 16 11/19/20 19:25 BP 133/64 11/19/20 19:25 Pulse Ox 99 11/19/20 19:25 - Orders/Labs/Meds Orders: Active Orders 24 hr Category Date Time Status EKG Documentation Completion [RC] ASDIRECTED Care 11/19/20 19:43 Active Peripheral IV Care [RC] . DIRECTED Care 11/19/20 19:34 Active CXR [Chest 1V Frontal] [CR] Stat Exams 11/19/20 19:33 Taken TROPONIN I [CHEM] Stat Lab 11/19/20 20:34 Ordered UA W/MICROSCOPIC [URIN] Stat Lab 11/19/20 20:25 Ordered Sodium Chloride 0.9% [Saline Flush] Med 11/19/20 19:34 Active 10 ml FLUSH ASDIRECTED PRN Peripheral IV Insertion Adult [OM.PC] Routine Oth 11/19/20 19:34 Ordered Medication Orders Sodium Chloride (Sodium Chloride 0.9% 10 Ml Syringe) 10 ml FLUSH ASDIRECTED PRN PRN Reason: Keep Vein Open Last Admin: 11/19/20 20:36 Dose: 10 ml Documented by: RIC Labs: Laboratory Tests 11/19/20 11/19/20 11/19/20 Range/Units 19:35 19:35 19:35 WBC 6.8 (4.0-10.2) K/uL RBC 4.04 (3.77-5.09) M/uL Hgb 12.3 (11.7-15.5) g/dL Hct 36.2 (34.0-46.0) % MCV 89.6 (84.0-98.0) fL MCH 30.4 (28.2-33.3) pg MCHC 34.0 (31.7-36.0) g/dL RDW 12.8 (11.2-14.1) % Plt Count 262 (150-350) K/uL Neut % (Auto) 55.4 (45.0-80.0) % Lymph % (Auto) 31.8 (10.0-50.0) % [place] % (Auto) 9.6 (2.0-14.0) % Eos % (Auto) 2.5 (0.0-5.0) % Baso % (Auto) 0.7 (0.0-2.0) % Neut # (Auto) 3.74 (1.40-7.00) K/uL Lymph # (Auto) 2.15 (0.50-3.50) K/uL [place] # (Auto) 0.65 (0.00-1.00) K/uL Eos # (Auto) 0.17 (0.00-0.50) K/uL Baso # (Auto) 0.05 (0.00-0.20) K/uL D-Dimer, Quantitative 203 (0-400) ng/mL Sodium 138 (136-145) mmol/L Potassium 4.0 (3.5-5.1) mmol/L Chloride 105 (98-107) mmol/L Carbon Dioxide 23.5 (21.0-32.0) mmol/L BUN 13 (7-18) mg/dL Creatinine 0.70 (0.51-1.17) mg/dL Est Cr Clr Drug Dosing TNP Estimated GFR (MDRD) > 60 mL/min Glucose 102 H (70-99) mg/dL Lactic Acid (0.4-2.0) mmol/L Calcium 8.6 (8.5-10.1) mg/dL Magnesium 1.8 (1.8-2.4) mg/dL Total Bilirubin 0.2 (0.2-1.0) mg/dL AST 21 (15-37) U/L ALT 43 (12-78) U/L Alkaline Phosphatase 66 (46-116) IU/L NT-Pro-B Natriuret Pep 388 H (0-125) pg/mL Total Protein 6.5 (6.4-8.2) g/dL Albumin 3.2 L (3.4-5.0) g/dL TSH, Ultra Sensitive (0.358-3.740) mIU/mL 11/19/20 11/19/20 Range/Units 19:35 19:35 WBC (4.0-10.2) K/uL RBC (3.77-5.09) M/uL Hgb (11.7-15.5) g/dL Hct (34.0-46.0) % MCV (84.0-98.0) fL MCH (28.2-33.3) pg MCHC (31.7-36.0) g/dL RDW (11.2-14.1) % Plt Count (150-350) K/uL Neut % (Auto) (45.0-80.0) % Lymph % (Auto) (10.0-50.0) % [place] % (Auto) (2.0-14.0) % Eos % (Auto) (0.0-5.0) % Baso % (Auto) (0.0-2.0) % Neut # (Auto) (1.40-7.00) K/uL Lymph # (Auto) (0.50-3.50) K/uL [place] # (Auto) (0.00-1.00) K/uL Eos # (Auto) (0.00-0.50) K/uL Baso # (Auto) (0.00-0.20) K/uL D-Dimer, Quantitative (0-400) ng/mL Sodium (136-145) mmol/L Potassium (3.5-5.1) mmol/L Chloride (98-107) mmol/L Carbon Dioxide (21.0-32.0) mmol/L BUN (7-18) mg/dL Creatinine (0.51-1.17) mg/dL Est Cr Clr Drug Dosing Estimated GFR (MDRD) mL/min Glucose (70-99) mg/dL Lactic Acid 1.0 (0.4-2.0) mmol/L Calcium (8.5-10.1) mg/dL Magnesium (1.8-2.4) mg/dL Total Bilirubin (0.2-1.0) mg/dL AST (15-37) U/L ALT (12-78) U/L Alkaline Phosphatase (46-116) IU/L NT-Pro-B Natriuret Pep (0-125) pg/mL Total Protein (6.4-8.2) g/dL Albumin (3.4-5.0) g/dL TSH, Ultra Sensitive 0.357 L (0.358-3.740) mIU/mL Meds: Medications Generic Name Dose Route Start Last Admin Trade Name Fremerlene PRN Reason Stop Dose Admin Sodium Chloride 10 ml 11/19/20 19:34 11/19/20 20:36 Sodium Chloride 0.9% 10 Ml Syringe FLUSH 10 ml ASDIRECTED PRN Administration Keep Vein Open Discontinued Medications Generic Name Dose Route Start Last Admin Trade Name Freq PRN Reason Stop Dose Admin Furosemide 60 mg 11/19/20 20:21 11/19/20 20:34 Furosemide 40 Mg/4 Ml Vial IVPUSH 11/19/20 20:22 60 mg NOW ONE Administration - Re-Assessments/Exams Free Text/Narrative Re-Assessment/Exam: 11/19/20 20:34 Patient noted to have normal vital signs, including pulse, respiratory rate, and room air sats. No wheezing noted on ascultation. Patient had good airflow throughout both lungs. Labs unremarkable, including WBC and DDimer. Chest xray did not show acute CHF/fluid overload or focal pneumonia. Very minimal elevation of BNP noted on labs. Patient does not appear to be in need of acute hospitalization/observation. Plan formulated with patient to give IV lasix tonight in ER. Will have her continue PO lasix for another 3 days. To observe to see how well this promotes diuresis and if she gets back to her usual baseline. To also follow up with her primary care provider this week for recheck. To return to ER if she has sudden severe/worsening problems. 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 See if you can get an appointment to get rechecked in the clinic in a few days to make certain the current plan worked. If things do not return back to baseline then additional evaluation may be needed. You did have a mild elevation in the lab number that looks for heart failure and that may be a contributor to the swelling in addition to the road trip. Lasix can cause your potassium to dip down so make certain you add some potassium rich foods to your diet such as an avocado daily. Follow up otherwise as needed if you have worsening problems. Sepsis Event Note (ED) - Evaluation Sepsis Screening Result: No Definite Risk - Focused Exam Vital Signs: Vital Signs Temp Pulse Resp BP Pulse Ox 11/19/20 19:25 36.7 C 74 16 133/64 99 - My Orders Last 24 Hours: My Active Orders 11/19/20 19:33 CXR [Chest 1V Frontal] [CR] Stat 11/19/20 19:34 Peripheral IV Care [RC] . DIRECTED Sodium Chloride 0.9% [Saline Flush] 10 ml FLUSH ASDIRECTED PRN Peripheral IV Insertion Adult [OM.PC] Routine 11/19/20 19:43 EKG Documentation Completion [RC] ASDIRECTED 11/19/20 20:25 UA W/MICROSCOPIC [URIN] Stat 11/19/20 20:34 TROPONIN I [CHEM] Stat - Assessment/Plan Last 24 Hours: My Active Orders 11/19/20 19:33 CXR [Chest 1V Frontal] [CR] Stat 11/19/20 19:34 Peripheral IV Care [RC] . DIRECTED Sodium Chloride 0.9% [Saline Flush] 10 ml FLUSH ASDIRECTED PRN Peripheral IV Insertion Adult [OM.PC] Routine 11/19/20 19:43 EKG Documentation Completion [RC] ASDIRECTED 11/19/20 20:25 UA W/MICROSCOPIC [URIN] Stat 11/19/20 20:34 TROPONIN I [CHEM] Stat
== END 2020-11-19 21:05 | disposition home or self-care (01) ==
LOC: LL.ED 19:21
DX: R60.1 Generalized edema (principal); E03.9 Hypothyroidism, unspecified; E78.00 Pure hypercholesterolemia, unspecified; Z79.899 Other long term (current) drug therapy; Z88.5 Allergy status to narcotic agent; Z88.6 Allergy status to analgesic agent; Z91.018 Allergy to other foods; Z87.891 Personal history of nicotine dependence
CPT/HCPCS: 71045; 80053; 81001; 83605; 83735; 83880; 84443; 84484; 85025; 85379; 93005; 93010; 96374; 99284; 99285-25; J1940

== ENCOUNTER 2021-02-15 21:09 | Emergency (ER) | payer BC ==
[2021-02-15] MEDS ORDERED: HYDROmorphone 1 MG/ML Syringe IVPUSH ONE (22:04)
[2021-02-15] MEDS ORDERED: diphenhydrAMINE 50 MG/ML SDV IVPUSH ONE (22:05)
[2021-02-15] MEDS ORDERED: Diazepam 5 MG/ML ML Oral Soln 30 ML Bottle PO ONE (22:18)
[2021-02-15] MEDS ORDERED: HYDROmorphone 1 MG/ML Syringe IM ONE (22:20)
[2021-02-15] MEDS ORDERED: diphenhydrAMINE 50 MG/ML SDV IM ONE (22:20)
[2021-02-15 22:22] LABS: ANION GAP 11.2 meq/L (7-15); CHLORIDE,CL 104 mmol/L (98-107); SODIUM,NA 138 mmol/L (136-145)
[2021-02-15] MEDS ORDERED: Diazepam 5 MG Tab PO ONE (22:42)
--- NOTE | 2021-02-15 23:38 | EDM.PDOC ---
ED HPI GENERAL MEDICAL PROBLEM - General Chief Complaint: Back Pain or Injury Stated Complaint: FALL, BACK INJURY, LEFT WRIST AND ANKLE PAIN Time Seen by Provider: 02/15/21 22:31 Source of Information: Reports: Patient, Family History Limitations: Reports: No Limitations - History of Present Illness INITIAL COMMENTS - FREE TEXT/NARRATIVE: Patient comes to ER after having fall at home. Reports missing step and falling forward. Landed on cement. Some left elbow and left ankle pain. Says left ankle does not hurt much compared to elbow and back. Reports severe pain 7/10 in mid back area that radiates to right scapular area. Patient writhing/complaining of severe discomfort. Says she felt a snapping sensation in her back. Daughter saw incident and says at one point patient looked like her back was hyperextended in an "up dog" yoga pose during the fall. Denies hitting head. No LOC. No other limb injuries reported. Has cough/URI complaint that has been an issue and is not improving. Is concerned that she needs antibiotic coverage given her chronic lung disease. No fevers or SOB. Negative Covid test several days ago. Middle Back Pain Score (Numeric/FACES): 7 Left Wrist Pain Score (Numeric/FACES): 7 - Related Data Allergies Allergy/AdvReac Type Severity Reaction Status Date / Time codeine Allergy Hives Verified 02/15/21 21:17 hydrocodone Allergy Itching Verified 02/15/21 21:17 morphine Allergy Hives Verified 02/15/21 21:17 nortriptyline Allergy Other Verified 02/15/21 21:17 opium poppy Allergy Nausea and Verified 02/15/21 21:17 Vomiting tramadol AdvReac Itching Verified 02/15/21 21:17 fennel seed Allergy Nausea and Uncoded 02/15/21 21:17 Vomiting Home Meds: Home Meds Magnesium Oxide 400 mg PO BID #60 tab 06/03/19 [Rx] Omeprazole 40 mg PO DAILY 07/14/19 [History] Fluticasone Propionate [Flonase] 1 spray NASBOTH BID 07/15/19 [History] Loratadine [Claritin] 10 mg PO DAILY 10/28/19 [History] Levothyroxine Sodium [Levothyroxine] 150 mcg PO DAILY 06/15/20 [History] Ascorbic Acid/Elderberry Fruit [Elderberry-Vit C 50-100 mg Chw] 1 tab CHEW DAILY 02/15/21 [History] D-Methorphan/PE/Acetaminophen [Daytime Cold-Flu Relief Sftgl] 1 cap PO BID PRN 02/15/21 [History] Escitalopram [Lexapro] 10 mg PO DAILY 02/15/21 [History] Meloxicam 15 mg PO DAILY 02/15/21 [History] Multivitamin 1 tab PO DAILY 02/15/21 [History] Phentermine HCl 37.5 mg PO DAILY 02/15/21 [History] guaiFENesin/Dextromethorphan [Mucinex Dm ER 1,200-60 mg Tab] 1 tab PO BID PRN 02/15/21 [History] Azithromycin [Zithromax] 250 mg PO DAILY #6 tab 02/16/21 [Rx] Past Medical History HEENT History: Reports: Allergic Rhinitis, Otitis Media, Sinusitis, Other (See Below) Other HEENT History: History of oral thrush with antibiotic and/or steroid therapy. 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 Recurrent otitis media without previous PE tubes. Environmental and food allergies. Eustachian tube dysfunction. Cardiovascular History: Reports: Arrhythmia, High Cholesterol, Other (See Below) Other Cardiovascular History: Unknown type of cardiac arrhythmia in May 2020 currently being evaluated by her regular provider. 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 Hx. of pleurisy with bronchitis. Gastrointestinal History: Reports: Chronic Constipation, Chronic Diarrhea, Diverticulosis, Irritable Bowel Syndrome, Other (See Below) Other Gastrointestinal History: Sigmoid diverticulosis by colonoscopy with additional history of irritable bowel syndrome bowel problems for many years. Genitourinary History: Reports: Renal Calculus, Urinary Incontinence, UTI, Recurrent, Other (See Below) Other Genitourinary History: Urinary hesitancy with recurrent UTIs. Recurrent bilateral urolithiasis with spontaneous passage. 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 Blocked fallopian tubes secondary to previous abdominal surgeries as below. Dysmenorrhea. Musculoskeletal History: Reports: Arthritis, Back Pain, Chronic, Fracture, Neck Pain, Chronic, Osteoarthritis, Other (See Below) Other Musculoskeletal History: Right multiple foot fracture secondary to lawnmower accident at about age 11. De Quervains disease (radial styloid tenosynovitis) Neurological History: Reports: Concussion, Headaches, Chronic, Head Trauma, Migraines, Seizure, Vertigo Other Neuro History: Head concussion 2016 with subsequent occasional occasional episodes of vertigo and headaches. Non-epileptic pseudoseizures as a teenager. Psychiatric History: Reports: Anxiety, Depression Endocrine/Metabolic History: Reports: Hypomagnesemia, Hypothyroidism, Multinodular Thyroid, Obesity/BMI 30+, Other (See Below) Other Endocrine/Metabolic History: Paulina's thyroiditis. Hypoalbuminemia. Idiopathic hypocalcemia. Hematologic History: Reports: None Other Hematologic History: hypoalbuminemia. 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 Dermatologic History: Reports: Eczema - Infectious Disease History Infectious Disease History: Reports: C-Difficile, Chicken Pox, Influenza, Mononucleosis, Novel Coronavirus, Shingles - Past Surgical History Head Surgeries/Procedures: Reports: None HEENT Surgical History: Reports: Adenoidectomy, Oral Surgery, Tonsillectomy, Other (See Below) Other HEENT Surgeries/Procedures: Apparent cauterization of vocal cords in February 2020 and on 04/10/2020 secondary to mild vocal cord hemorrhages. Multiple teeth extractions with partial upper dentures. Right-sided mandibular cyst excision in 2014. Tonsillectomy and adenoidectomy at age 16. Cardiovascular Surgical History: Reports: None Respiratory Surgical History: Reports: None GI Surgical History: Reports: Appendectomy, Colonoscopy, EGD, Other (See Below) Other GI Surgeries/Procedures: Appendectomy at age 14. EGD with negative biopsies on 07/15/2019. Colonoscopy with negative biopsies on 10/28/2019. Previous colonoscopies in about 1999 and 2001. Female Surgical History: Reports: D&C, LEEP, Tubal Ligation, Other (See Below) Other Female Surgeries/Procedures: D&C, hysteroscopy, and bilateral tubal ligation at time of laparoscopic abdominal/pelvic evaluation age 27. Apparent staple adhesions to the bladder at the time of appendectomy with additional staple removal at time of above procedure at age 27. LEEP procedure at age 18. Multiple vaginal wart cryotherapies and subsequent excisions. Nabothian cyst excision. Endocrine Surgical History: Reports: None Neurological Surgical History: Reports: None Musculoskeletal Surgical History: Reports: None Other Musculoskeletal Surgeries/Procedures:: jaw surgery Oncologic Surgical History: Reports: None Dermatological Surgical History: Reports: None - Past Imaging History Past Imaging History: Reports: CAT Scan (CT of the chest, abdomen, and pelvis all with IV contrast on 06/10/2019. CT scan of the abdomen and pelvis on 10/05/2019. CT of the chest at the [facility] in May [address] of the chest on 09/23/18.), Mammogram (Last mammogram on 11/05/2019.), MRI (Left hand including left thumb on 01/29/19.), Ultrasound (Thyroid ultrasound on 06/21/2019. Pelvis on 09/30/18.), Venous Doppler (Negative venous Doppler study of the left leg on 07/19/2019.) Social & Family History - Family History Respiratory: Reports: COPD, Other (See Below) Other Respiratory Family Hisory: Mother with fatal COPD at age 70 with previous history of tobacco use. - Tobacco Use Tobacco Use Status *Q: Current Every Day Tobacco User Years of Tobacco use: 1 Packs/Tins Daily: 0.5 Used Tobacco, but Quit: No - Caffeine Use Caffeine Use: Reports: Soda Other Caffeine Use: 4 per day - Recreational Drug Use Recreational Drug Use: No - Living Situation & Occupation Living situation: Reports: (2015.), with Family ( and stepchildren) Occupation: Employed ([employer], although currently on leave secondary to her pulmonary disease.) ED ROS GENERAL - Review of Systems Review Of Systems: See Below Constitutional: Reports: No Symptoms HEENT: Reports: Sinus Problem Respiratory: Reports: Cough. Denies: Shortness of Breath, Wheezing, Pleuritic Chest Pain, Sputum, Hemoptysis Cardiovascular: Denies: Chest Pain, Dyspnea on Exertion, Palpitations, PND, Syncope GI/Abdominal: Reports: No Symptoms : Reports: No Symptoms Musculoskeletal: Reports: Other (Acute mid back pain) Skin: Reports: No Symptoms Neurological: Reports: Difficulty Walking (due to back pain). Denies: Dizziness, Headache, Numbness, Paresthesia, Syncope, Tingling, Weakness Psychiatric: Reports: No Symptoms Hematologic/Lymphatic: Reports: No Symptoms ED EXAM, GENERAL - Physical Exam Exam: See Below Exam Limited By: No Limitations General Appearance: Alert, Severe Distress, Obese Eye Exam: Bilateral Eye: EOMI, PERRL Ears: Normal External Exam, Normal Canal, Hearing Grossly Normal Nose: No: Nasal Deformity, Nasal Swelling, Nasal Drainage Throat/Mouth: Normal Lips, Normal Voice, No Airway Compromise Head: Atraumatic, Normocephalic Neck: Normal Inspection, Supple, Non-Tender, Full Range of Motion Respiratory/Chest: No Respiratory Distress, Lungs Clear, Normal Breath Sounds, No Accessory Muscle Use, Other (posterior chest tender with palpation under right scapula. No anterior tenderness) Cardiovascular: Regular Rate, Rhythm, No Murmur GI/Abdominal: Soft, Non-Tender, No Distention (Female) Exam: Deferred Rectal (Female) Exam: Deferred Back Exam: Decreased Range of Motion, Paraspinal Tenderness, Vertebral Tenderness (L-S junction), Other (Tender over L-spine and L-S junction, Tender under right scapula and lower T-spine. Negative straight leg lift). No: Muscle Spasm Extremities: Normal Capillary Refill, Other (Normal passive ROM. ) Neurological: Alert, Oriented, Normal Cognition, Other (Equal tone/strength upper and lower limbs) Psychiatric: Anxious Skin Exam: Warm, Dry, Intact, Normal Color Course - Vital Signs Last Recorded V/S: Last Vital Signs Temp 36.6 C 02/15/21 21:12 Pulse 99 02/15/21 21:12 Resp 14 02/15/21 21:12 BP 152/103 H 02/15/21 21:12 Pulse Ox 99 02/15/21 21:12 - Orders/Labs/Meds Orders: Active Orders 24 hr Category Date Time Status Ankle Min 3V Lt [CR] Stat Exams 02/15/21 21:32 Taken C-Spine [Cervical Spine wo Cont] [CT] Stat Exams 02/15/21 21:46 Stop Req Elbow Min 3V Lt [CR] Stat Exams 02/15/21 21:32 Taken Lumbar Spine Bend Only [CR] Routine Exams 02/16/21 00:13 Ordered Lumbar Spine wo Cont [CT] Stat Exams 02/15/21 21:49 Taken Thoracic Spine wo Cont [CT] Stat Exams 02/15/21 21:47 Taken Labs: Laboratory Tests 0902/15/21 02/15/21 Range/Units 21:55 21:55 21:55 WBC 8.6 (4.0-10.2) K/uL RBC 4.70 (3.77-5.09) M/uL Hgb 14.0 (11.7-15.5) g/dL Hct 40.9 (34.0-46.0) % MCV 87.0 (84.0-98.0) fL MCH 29.8 (28.2-33.3) pg MCHC 34.2 (31.7-36.0) g/dL RDW 13.4 (11.2-14.1) % Plt Count 279 (150-350) K/uL Neut % (Auto) 62.3 (45.0-80.0) % Lymph % (Auto) 28.0 (10.0-50.0) % Frio % (Auto) 6.4 (2.0-14.0) % Eos % (Auto) 2.6 (0.0-5.0) % Baso % (Auto) 0.7 (0.0-2.0) % Neut # (Auto) 5.37 (1.40-7.00) K/uL Lymph # (Auto) 2.41 (0.50-3.50) K/uL Frio # (Auto) 0.55 (0.00-1.00) K/uL Eos # (Auto) 0.22 (0.00-0.50) K/uL Baso # (Auto) 0.06 (0.00-0.20) K/uL Sodium 138 (136-145) mmol/L Potassium 3.6 (3.5-5.1) mmol/L Chloride 104 (98-107) mmol/L Carbon Dioxide 22.8 (21.0-32.0) mmol/L Anion Gap 11.2 (7-15) meq/L BUN 10 (7-18) mg/dL Creatinine 0.89 (0.51-1.17) mg/dL Est Cr Clr Drug Dosing 72.60 mL/min Estimated GFR (MDRD) > 60 mL/min Glucose 101 H (70-99) mg/dL Calcium 8.4 L (8.5-10.1) mg/dL Magnesium 1.9 (1.8-2.4) mg/dL Total Bilirubin 0.2 (0.2-1.0) mg/dL AST 24 (15-37) U/L ALT 45 (12-78) U/L Alkaline Phosphatase 85 (46-116) IU/L Total Protein 6.5 (6.4-8.2) g/dL Albumin 3.3 L (3.4-5.0) g/dL Meds: Medications Discontinued Medications Generic Name Dose Route Start Last Admin Trade Name Chay PRN Reason Stop Dose Admin Diazepam 2.5 mg 02/15/21 22:05 02/16/21 00:24 Diazepam 10 Mg/2 Ml Syringe IVPUSH 02/15/21 22:06 Not Given ONETIME ONE Diazepam 5 mg 02/15/21 22:18 02/16/21 00:24 Diazepam 5 Mg/Ml Ml Oral Soln 30 Ml Bottle PO 02/15/21 22:19 Not Given ONETIME ONE Diazepam 5 mg 02/15/21 22:42 02/15/21 22:48 Diazepam 5 Mg Tab PO 02/15/21 22:43 5 mg ONETIME ONE Administration Diphenhydramine HCl 50 mg 02/15/21 22:05 02/16/21 00:24 Diphenhydramine 50 Mg/Ml Sdv IVPUSH 02/15/21 22:06 Not Given ONETIME ONE Diphenhydramine HCl 50 mg 02/15/21 22:20 02/15/21 22:48 Diphenhydramine 50 Mg/Ml Sdv IM 02/15/21 22:21 50 mg ONETIME ONE Administration Hydromorphone HCl 1 mg 02/15/21 22:04 02/16/21 00:24 Hydromorphone 1 Mg/Ml Syringe IVPUSH 02/15/21 22:05 Not Given ONETIME ONE Hydromorphone HCl 1 mg 02/15/21 22:20 02/15/21 22:49 Hydromorphone 1 Mg/Ml Syringe IM 02/15/21 22:21 1 mg ONETIME ONE Administration Hydromorphone HCl 1 mg 02/16/21 00:16 02/16/21 00:23 Hydromorphone 1 Mg/Ml Syringe IM 02/16/21 00:17 1 mg ONETIME ONE Administration - Re-Assessments/Exams Free Text/Narrative Re-Assessment/Exam: 02/15/21 23:44 Patient extremely anxious and uncomfortable upon arrival. Liked to lay on her side. Stated it hurt to sit up. Initially given the severity of her discomfort and vague recollection of how exactly she fell onto the cement/multiple back pain complaints noncontrast CTs of entire spine ordered. This was later changed to thoracic and lumbar spine once patient was calmer and we had a better story from patient's daughter as to how the patient fell. No neck tenderness was noted on focused exam. Basic labs ordered. Left elbow xray ordered. She has numerous allergies to pain medication but told us she could tolerate Dilaudid. A single dose of Dilaudid was ordered, with Benadryl added as precaution. PO dose of Valium was given for potential muscle spasms. Labs unremarkable. Radiology did not note any fracture when reviewing elbow xrays. Patient has since moved around to be able to use the restroom and to sit in the chair. She complains that she feels her back is constantly adjusting and has sensation of things moving around. Radiology contacted us at 23:50 and report no acute changes on the CTs. Recommended flexing/extension plain films on patient's back to r/o potential subluxation given patient's level of worry about the feelings of spine adjusting. No obvious subluxation noted. 02/16/21 00:16 Patient extremely worried that she might have torn a ligament or a more serious injury and would like to have an MRI arranged tonight. Call placed to [facility] and patient reviewed with . He accepted the patient to transfer to their facility and will be happy to arrange for MRI study. Patient wants to go private vehicle. Will give one additional dose of pain medication prior to discharge as patient is saying she is again having severe pain and discomfort in the back area. Further plans/instructions/medications per [facility] ED. Departure - Departure Time of Disposition: 00:30 Disposition: DC/Tfer to Acute Hospital 02 Condition: Good Clinical Impression: Fall, in, on, steps Qualifiers: Encounter type: initial encounter Qualified Code(s): W10.8XXA - Fall (on) (from) other stairs and steps, initial encounter Acute back pain Qualifiers: Back pain location: back pain in unspecified location Back pain laterality: unspecified Qualified Code(s): M54.9 - Dorsalgia, unspecified Left elbow contusion Qualifiers: Encounter type: initial encounter Qualified Code(s): S50.02XA - Contusion of left elbow, initial encounter Left ankle injury Qualifiers: Encounter type: initial encounter Qualified Code(s): S99.912A - Unspecified injury of left ankle, initial encounter - Discharge Information *PRESCRIPTION DRUG MONITORING PROGRAM REVIEWED*: Not Applicable *COPY OF PRESCRIPTION DRUG MONITORING REPORT IN PATIENT FRANCHESCA: Not Applicable Prescriptions: Azithromycin [Zithromax] 250 mg PO DAILY #6 tab Referrals: Sayra Head PA-C [Primary Care Provider] - Forms: ED Department Discharge Sepsis Event Note (ED) - Evaluation Sepsis Screening Result: No Definite Risk - My Orders Last 24 Hours: My Active Orders 02/15/21 21:32 Ankle Min 3V Lt [CR] Stat Elbow Min 3V Lt [CR] Stat 02/15/21 21:46 C-Spine [Cervical Spine wo Cont] [CT] Stat 02/15/21 21:47 Thoracic Spine wo Cont [CT] Stat 02/15/21 21:49 Lumbar Spine wo Cont [CT] Stat 02/16/21 00:13 Lumbar Spine Bend Only [CR] Routine - Assessment/Plan Last 24 Hours: My Active Orders 02/15/21 21:32 Ankle Min 3V Lt [CR] Stat Elbow Min 3V Lt [CR] Stat 02/15/21 21:46 C-Spine [Cervical Spine wo Cont] [CT] Stat 02/15/21 21:47 Thoracic Spine wo Cont [CT] Stat 02/15/21 21:49 Lumbar Spine wo Cont [CT] Stat 02/16/21 00:13 Lumbar Spine Bend Only [CR] Routine
[2021-02-16] MEDS ORDERED: HYDROmorphone 1 MG/ML Syringe IM ONE (00:16)
== END 2021-02-16 00:47 ==
LOC: LL.ED 21:09
DX: S50.02XA Contusion of left elbow, initial encounter (principal); S99.912A Unspecified injury of left ankle, initial encounter; M54.5 Low back pain; E78.00 Pure hypercholesterolemia, unspecified; J45.909 Unspecified asthma, uncomplicated; E03.9 Hypothyroidism, unspecified; Z72.0 Tobacco use; Z79.899 Other long term (current) drug therapy; Z88.5 Allergy status to narcotic agent; Z91.018 Allergy to other foods; Z88.8 Allergy status to other drugs, medicaments and biological substances; W10.8XXA Fall (on) (from) other stairs and steps, initial encounter; Y92.009 Unspecified place in unspecified non-institutional (private) residence as the place of occurrence of the external cause
CPT/HCPCS: 36415; 72120; 72125; 72128; 72131; 73080; 80053; 83735; 85025; 96372; 99285; A9270; J1170; J1200

== ENCOUNTER 2021-12-29 18:32 | Emergency (ER) | payer BC ==
[2021-12-29 19:51] LABS: CHLORIDE,CL 104 mmol/L (98-107); SODIUM,NA 135 mmol/L (136-145)
[2021-12-29 19:52] LABS: ANION GAP 11.5 meq/L (7-15); ESTIMATED GFR 94 mL/min (>=60)
[2021-12-29] MEDS ORDERED: Fluconazole 100 MG Tab PO ONE (20:20)
== END 2021-12-29 20:47 | disposition home or self-care (01) ==
LOC: LL.ED 18:32
DX: U07.1 COVID-19 (principal); R07.81 Pleurodynia; B37.3 Candidiasis of vulva and vagina; B37.0 Candidal stomatitis; Z88.5 Allergy status to narcotic agent; Z88.6 Allergy status to analgesic agent; Z91.018 Allergy to other foods; Z79.899 Other long term (current) drug therapy
CPT/HCPCS: 36415; 80053; 83735; 84443; 84484; 85025; 85379; 86140; 93005; 99284; A9270

== ENCOUNTER 2022-01-02 14:30 | Emergency (ER) | payer BC ==
[2022-01-02] MEDS ORDERED: Sodium Chloride 0.9% 10 ML Syringe FLUSH PRN (14:51)
[2022-01-02] MEDS ORDERED: Sodium Chloride 0.9% 1,000 ML IV ONE ×2 (14:51→16:39)
[2022-01-02] MEDS ORDERED: Ondansetron 4 MG/2 ML SDV IVPUSH ONE (14:51)
[2022-01-02] MEDS ORDERED: cefTRIAXone 2 GM Vial IVPUSH ONE (16:28)
[2022-01-02] MEDS ORDERED: cefTRIAXone 1 GM in Sodium Chloride 0.9% 100 ML IV ONE (16:47)
== END 2022-01-02 18:50 | disposition home or self-care (01) ==
LOC: LL.ED 14:30
DX: U07.1 COVID-19 (principal); L02.429 Furuncle of limb, unspecified; E78.00 Pure hypercholesterolemia, unspecified; E03.9 Hypothyroidism, unspecified; Z88.5 Allergy status to narcotic agent; Z88.8 Allergy status to other drugs, medicaments and biological substances; Z91.018 Allergy to other foods; Z79.899 Other long term (current) drug therapy
CPT/HCPCS: 36415; 80053; 81003; 83735; 85025; 87070; 87205; 96361; 96365; 96375; 99283-25; 99284; J0696; J2405; J7030

== ENCOUNTER 2022-06-16 11:47 | Emergency (ER) | payer BC ==
[2022-06-16] MEDS ORDERED: Azithromycin 250 MG Tab PO ONE (12:15)
[2022-06-16 12:57] LABS: CHLORIDE,CL 102 mmol/L (98-107); SODIUM,NA 137 mmol/L (136-145)
[2022-06-16 12:58] LABS: ESTIMATED GFR 104 mL/min (>=60)
[2022-06-16] MEDS ORDERED: Albuterol/Ipratropium 3.0-0.5 MG/3 ML Neb Soln NEB ONE (14:04)
== END 2022-06-16 14:30 | disposition home or self-care (01) ==
LOC: LL.ED 11:47
DX: J44.1 Chronic obstructive pulmonary disease with (acute) exacerbation (principal); E83.42 Hypomagnesemia; R19.7 Diarrhea, unspecified; F17.210 Nicotine dependence, cigarettes, uncomplicated; Z88.5 Allergy status to narcotic agent; Z88.6 Allergy status to analgesic agent; Z88.8 Allergy status to other drugs, medicaments and biological substances
CPT/HCPCS: 36415; 80053; 83605; 83735; 84443; 85025; 86140; 94640; 99283; A9270-GY; J7620-GY

== ENCOUNTER 2022-11-04 09:42 | Emergency (ER) | payer OTHER, BC | END 2022-11-04 11:14 | disposition home or self-care (01) | LOC: LL.ED 09:42 | DX: S60.022A Contusion of left index finger without damage to nail, initial encounter (principal); J44.9 Chronic obstructive pulmonary disease, unspecified; E03.9 Hypothyroidism, unspecified; Z88.8 Allergy status to other drugs, medicaments and biological substances; Z88.5 Allergy status to narcotic agent; Z91.018 Allergy to other foods; Z79.899 Other long term (current) drug therapy; W22.8XXA Striking against or struck by other objects, initial encounter; Y92.89 Other specified places as the place of occurrence of the external cause; Y99.0 Civilian activity done for income or pay | CPT/HCPCS: 73140-F1; 99283 ==

== ENCOUNTER 2023-05-22 22:03 | Observation (INO) | payer BC, OTHER ==
[2023-05-22] MEDS ORDERED: Ondansetron 4 MG/2 ML SDV IVPUSH ONE (22:20)
[2023-05-22] MEDS ORDERED: Sodium Chloride 0.9% 1,000 ML IV ONE (22:20)
[2023-05-22] MEDS ORDERED: Pantoprazole 40 MG Vial IVPUSH ONE (22:22)
[2023-05-22] MEDS ORDERED: Aluminum Hydroxide/Magnesium Hydroxide/Simethicone Susp 30 ML Cup PO ONE (22:22)
[2023-05-22] MEDS ORDERED: Ketorolac 15 MG/ML SDV IVPUSH ONE (22:43)
[2023-05-22 22:49] LABS: BASOPHILS ABSOLUTE AUTO 0.02 K/uL (0.00-0.20); BASOPHILS PERCENT AUTO 0.2 % (0.0-2.0); EOSINOPHILS ABSOLUTE AUTO 0.02 K/uL (0.00-0.50); EOSINOPHILS PERCENT AUTO 0.2 % (0.0-5.0); HEMATOCRIT 43.6 % (34.0-46.0); HEMOGLOBIN 15.1 g/dL (11.7-15.5); LYMPHOCYTES ABSOLUTE AUTO 1.09 K/uL (0.50-3.50); MEAN CORPUSCULAR HEMOGLOBIN 30.8 pg (28.2-33.3); MEAN CORPUSCULAR HGB CONC 34.6 g/dL (31.7-36.0); MEAN CORPUSCULAR VOLUME 88.8 fL (84.0-98.0); MONOCYTES ABSOLUTE AUTO 0.37 K/uL (0.00-1.00); MONOCYTES PERCENT AUTO 3.7 % (2.0-14.0); NEUTROPHILS ABSOLUTE AUTO 8.44 K/uL (1.40-7.00); NEUTROPHILS PERCENT AUTO 84.9 % (45.0-80.0); PLATELET COUNT,PLT 233 K/uL (150-350); RED BLOOD CELL COUNT 4.91 M/uL (3.77-5.09); RED CELL DISTRIBUTION WIDTH 13.4 % (11.2-14.1); WHITE BLOOD CELL COUNT,WBC 9.9 K/uL (4.0-10.2)
[2023-05-22] MEDS: Sodium Chloride 0.9% 10 ML Syringe FLUSH PRN (23:05)
[2023-05-22 23:13] LABS: ALANINE AMINOTRANSFERASE,ALT 28 U/L (12-78); ALBUMIN 3.1 g/dL (3.4-5.0); ALKALINE PHOSPHATASE 79 IU/L (46-116); ASPARTATE AMNIOTRANSFERASE,AST 17 U/L (15-37); BILIRUBIN TOTAL 0.5 mg/dL (0.2-1.0); BLOOD UREA NITROGEN,BUN 12 mg/dL (7-18); CALCIUM 7.8 mg/dL (8.5-10.1); CARBON DIOXIDE,CO2 21.3 mmol/L (21.0-32.0); CHLORIDE,CL 101 mmol/L (98-107); CREATININE 0.75 mg/dL (0.51-1.17); GLUCOSE RANDOM 96 mg/dL (70-99); MAGNESIUM 1.7 mg/dL (1.8-2.4); POTASSIUM,K 3.8 mmol/L (3.5-5.1); PRO B-TYPE NATRIUR PEPT,BNPPRO 109 pg/mL (0-125); PROTEIN TOTAL,TP 6.2 g/dL (6.4-8.2); SODIUM,NA 132 mmol/L (136-145)
[2023-05-22 23:17] LABS: ANION GAP 13.5 meq/L (7-15); ESTIMATED GFR 100 mL/min (>=60)
[2023-05-22 23:27] LABS: CORONAVIRUS COVID-19 NAA NEGATIVE (NEGATIVE); INFLUENZA A NAA NEGATIVE (NEGATIVE); INFLUENZA B NAA NEGATIVE (NEGATIVE); RESPIRATORY SYNCYTIAL VIR NAA NEGATIVE (NEGATIVE)
[2023-05-22 23:40] LABS: APPEARANCE,URINE SLIGHTLY CLOUDY; BILIRUBIN,URINE NEGATIVE (NEGATIVE); COLOR,URINE YELLOW; GLUCOSE,URINE NEGATIVE (NEGATIVE); KETONES,URINE NEGATIVE (NEGATIVE); LEUKOCYTE ESTERASE,URINE NEGATIVE (NEGATIVE); NITRITE,URINE NEGATIVE (NEGATIVE); OCCULT BLOOD,URINE TRACE-LYSED (NEGATIVE); PROTEIN,URINE NEGATIVE (NEGATIVE); UROBILINOGEN,URINE 0.2 E.U./dL (0.2-1.0)
[2023-05-22 23:46] LABS: BACTERIA,URINE RARE /HPF (NONE TO FEW); EPITHELIAL CELLS,URINE RARE /LPF; MUCUS,URINE RARE /LPF (NEGATIVE); RBC,URINE 0-5 /HPF; WBC,URINE 0-5 /HPF
[2023-05-22] MEDS ORDERED: Naloxone 0.4 MG/ML SDV IVPUSH PRN (23:49)
[2023-05-22] MEDS ORDERED: HYDROmorphone 0.5 MG/0.5 ML Syringe IVPUSH ONE (23:49)
[2023-05-22] MEDS ORDERED: Iopamidol 755 Mg/ML 100 ML Bottle IVPUSH ONE (23:59)
[2023-05-23] MEDS ORDERED: Iopamidol 755 Mg/ML 100 ML Bottle ONE (00:02)
[2023-05-23] MEDS ORDERED: Loperamide 2 MG Tab PO ONE (00:56)
[2023-05-23] MEDS ORDERED: HYDROmorphone 0.5 MG/0.5 ML Syringe IVPUSH PRN (00:57)
[2023-05-23] MEDS ORDERED: Acetaminophen 325 MG Tab PO PRN (00:58)
[2023-05-23] MEDS ORDERED: Aluminum Hydroxide/Magnesium Hydroxide/Simethicone Susp 30 ML Cup PO PRN (00:58)
[2023-05-23] MEDS ORDERED: Calcium Carbonate 500 MG Tab.Chew PO PRN (00:58)
[2023-05-23] MEDS ORDERED: Sodium Chloride 0.9% 1,000 ML IV SCH (01:00)
[2023-05-23] MEDS: Ondansetron 4 MG/2 ML SDV IVPUSH PRN ×2 (01:55→07:52)
[2023-05-23] MEDS: Sodium Chloride 0.9% 10 ML Syringe FLUSH PRN ×4 (01:56→09:20)
[2023-05-23] MEDS ORDERED: Ketorolac 15 MG/ML SDV IVPUSH ONE ×2 (05:00→11:00)
[2023-05-23] MEDS ORDERED: Dicyclomine 20 MG Tab PO SCH (07:30)
[2023-05-23] MEDS ORDERED: Pantoprazole 40 MG Vial IVPUSH ONE (09:00)
[2023-05-23] MEDS ORDERED: Orphenadrine 60 MG/2 ML Inj IV ONE (09:01)
[2023-05-23] MEDS ORDERED: methylPREDNISolone Sodium Succinate 40 MG/1 ML SDV IVPUSH ONE (09:03)
[2023-05-23] MEDS ORDERED: Ondansetron 4 MG/2 ML SDV IVPUSH ONE (10:33)
[2023-05-23] MEDS ORDERED: Promethazine 25 MG Tab PO ONE (10:34)
[2023-05-23 11:09] VITALS: BP 98/53; PULSE 65
== END 2023-05-23 11:00 | disposition home or self-care (01) ==
LOC: LL.ED 22:03 → LL.MS 05-23 00:20
PROVIDERS: ADMIT Emergency Medicine; ATTEND Emergency Medicine
DX: R19.7 Diarrhea, unspecified (principal); K21.9 Gastro-esophageal reflux disease without esophagitis; J44.9 Chronic obstructive pulmonary disease, unspecified; E03.9 Hypothyroidism, unspecified; F41.9 Anxiety disorder, unspecified; F32.A Depression, unspecified; Z20.822 Contact with and (suspected) exposure to COVID-19; Z79.899 Other long term (current) drug therapy; Z88.5 Allergy status to narcotic agent
CPT/HCPCS: 0241U; 36415; 71275; 74022; 80053; 81001; 81025; 83605; 83690; 83735; 83880; 84484; 85025; 85379; 93005; 96361; 96374; 96375; 99285-25; A9270-GY; C9113; J1170; J1885; J2360; J2405; J2920; J3475; J3490; J7030; Q9967

== ENCOUNTER 2023-05-25 11:23 | Emergency (ER) | payer BC ==
[2023-05-25] MEDS ORDERED: Ondansetron 4 MG/2 ML SDV IVPUSH ONE (11:48)
[2023-05-25] MEDS ORDERED: Pantoprazole 40 MG Vial IVPUSH ONE (11:48)
[2023-05-25 12:03] LABS: BASOPHILS ABSOLUTE AUTO 0.02 K/uL (0.00-0.20); BASOPHILS PERCENT AUTO 0.4 % (0.0-2.0); EOSINOPHILS ABSOLUTE AUTO 0.03 K/uL (0.00-0.50); EOSINOPHILS PERCENT AUTO 0.5 % (0.0-5.0); HEMATOCRIT 41.9 % (34.0-46.0); HEMOGLOBIN 14.3 g/dL (11.7-15.5); LYMPHOCYTES ABSOLUTE AUTO 1.65 K/uL (0.50-3.50); MEAN CORPUSCULAR HEMOGLOBIN 30.4 pg (28.2-33.3); MEAN CORPUSCULAR HGB CONC 34.1 g/dL (31.7-36.0); MONOCYTES ABSOLUTE AUTO 0.63 K/uL (0.00-1.00); MONOCYTES PERCENT AUTO 11.1 % (2.0-14.0); NEUTROPHILS ABSOLUTE AUTO 3.36 K/uL (1.40-7.00); PLATELET COUNT,PLT 218 K/uL (150-350); RED BLOOD CELL COUNT 4.71 M/uL (3.77-5.09); RED CELL DISTRIBUTION WIDTH 13.5 % (11.2-14.1); WHITE BLOOD CELL COUNT,WBC 5.7 K/uL (4.0-10.2)
[2023-05-25] MEDS: Sodium Chloride 0.9% 10 ML Syringe FLUSH PRN ×3 (12:08→13:02)
[2023-05-25] MEDS ORDERED: Sodium Chloride 0.9% 1,000 ML IV ONE (12:09)
[2023-05-25 12:20] LABS: ALANINE AMINOTRANSFERASE,ALT 24 U/L (12-78); ALBUMIN 3.1 g/dL (3.4-5.0); ALKALINE PHOSPHATASE 65 IU/L (46-116); ANION GAP 8.8 meq/L (7-15); ASPARTATE AMNIOTRANSFERASE,AST 12 U/L (15-37); BILIRUBIN TOTAL 0.3 mg/dL (0.2-1.0); BLOOD UREA NITROGEN,BUN 9 mg/dL (7-18); CALCIUM 8.5 mg/dL (8.5-10.1); CARBON DIOXIDE,CO2 25.2 mmol/L (21.0-32.0); CHLORIDE,CL 104 mmol/L (98-107); CREATININE 0.72 mg/dL (0.51-1.17); EST CRCL DRUG DOSING (CG) 92.37 mL/min; GLUCOSE RANDOM 82 mg/dL (70-99); LIPASE 21 U/L (16-77); MAGNESIUM 1.8 mg/dL (1.8-2.4); POTASSIUM,K 3.8 mmol/L (3.5-5.1); PROTEIN TOTAL,TP 6.4 g/dL (6.4-8.2); SODIUM,NA 138 mmol/L (136-145)
[2023-05-25 12:21] LABS: ESTIMATED GFR 105 mL/min (>=60)
[2023-05-25 12:33] LABS: APPEARANCE,URINE CLEAR; BILIRUBIN,URINE NEGATIVE (NEGATIVE); COLOR,URINE LIGHT YELLOW; GLUCOSE,URINE NEGATIVE (NEGATIVE); KETONES,URINE NEGATIVE (NEGATIVE); LEUKOCYTE ESTERASE,URINE NEGATIVE (NEGATIVE); NITRITE,URINE NEGATIVE (NEGATIVE); OCCULT BLOOD,URINE TRACE-INTACT (NEGATIVE); PROTEIN,URINE NEGATIVE (NEGATIVE); UROBILINOGEN,URINE 0.2 E.U./dL (0.2-1.0)
[2023-05-25 12:41] LABS: CORONAVIRUS COVID-19 NAA NEGATIVE (NEGATIVE); INFLUENZA A NAA NEGATIVE (NEGATIVE); INFLUENZA B NAA NEGATIVE (NEGATIVE)
[2023-05-25 12:42] LABS: RESPIRATORY SYNCYTIAL VIR NAA NEGATIVE (NEGATIVE)
[2023-05-25 12:45] LABS: RBC,URINE 0-5 /HPF; WBC,URINE 0-5 /HPF
[2023-05-25] MEDS ORDERED: LORazepam 2 MG/ML SDV IVPUSH ONE (12:47)
[2023-05-25] MEDS ORDERED: Lidocaine 2% Viscous Solution 15 ML UD PO ONE (12:47)
[2023-05-25] MEDS ORDERED: Aluminum Hydroxide/Magnesium Hydroxide/Simethicone Susp 30 ML Cup PO ONE (12:48)
[2023-05-25] MEDS ORDERED: Ketorolac 15 MG/ML SDV IVPUSH ONE (12:50)
[2023-05-25] MEDS ORDERED: Diatrizoate Meglumine/Diatrizoate Sodium 37% 30 ML Bottle PO ONE (13:01)
[2023-05-25] MEDS ORDERED: Iopamidol 612 MG/ML 100 ML Bottle IVPUSH STA (13:01)
[2023-05-25 15:08] LABS: AMPHETAMINES SCREEN, URINE NEGATIVE (NEGATIVE); BARBITURATE SCREEN,URINE NEGATIVE (NEGATIVE); BENZODIAZEPINES SCREEN,URINE NEGATIVE (NEGATIVE); COCAINE METABOLITES,URINE NEGATIVE (NEGATIVE); EDDP,URINE SCREEN NEGATIVE (NEGATIVE); METHAMPHETAMINES SCREEN, URINE NEGATIVE (NEGATIVE); TCA SCREEN,URINE NEGATIVE (NEGATIVE); THC SCREEN,URINE 50 NG/ML NEGATIVE (NEGATIVE)
[2023-05-25 15:10] LABS: BUPRENORPHINE SCREEN,URINE NEGATIVE (NEGATIVE); OXYCODONE SCREEN,URINE NEGATIVE (NEGATIVE)
[2023-05-25] MEDS ORDERED: Dicyclomine 20 MG Tab PO ONE (15:43)
== END 2023-05-25 16:25 | disposition home or self-care (01) ==
LOC: LL.ED 11:23
DX: B34.9 Viral infection, unspecified (principal); R07.89 Other chest pain; Z20.822 Contact with and (suspected) exposure to COVID-19; E03.9 Hypothyroidism, unspecified; J44.9 Chronic obstructive pulmonary disease, unspecified; Z88.5 Allergy status to narcotic agent; Z91.018 Allergy to other foods; Z79.899 Other long term (current) drug therapy
CPT/HCPCS: 0241U; 36415; 74177; 80053; 80305; 81001; 83605; 83690; 83735; 84484; 85025; 86140; 93005; 96361; 96374; 96375; 99285; A9270; C9113; J1885; J2060; J2405; J7030; Q9963; Q9967; 93010; 99284; J3490

== ENCOUNTER 2023-12-07 18:21 | Emergency (ER) | payer BC | END 2023-12-07 19:40 | disposition home or self-care (01) | LOC: LL.ED 18:21 | DX: S99.911A Unspecified injury of right ankle, initial encounter (principal); E78.00 Pure hypercholesterolemia, unspecified; J44.9 Chronic obstructive pulmonary disease, unspecified; E03.9 Hypothyroidism, unspecified; Z88.5 Allergy status to narcotic agent; Z88.8 Allergy status to other drugs, medicaments and biological substances; Z91.018 Allergy to other foods; Z79.899 Other long term (current) drug therapy; Z79.890 Hormone replacement therapy; Z86.16 Personal history of COVID-19; W20.8XXA Other cause of strike by thrown, projected or falling object, initial encounter | CPT/HCPCS: 73610-RT; 99283 ==

== ENCOUNTER 2024-06-21 09:28 | Emergency (ER) | payer BC ==
[2024-06-21] MEDS: Metoprolol Tartrate 25 MG Tab PO ONE (10:08)
[2024-06-21 10:14] LABS: BASOPHILS ABSOLUTE AUTO 0.06 K/uL (0.00-0.20); BASOPHILS PERCENT AUTO 0.8 % (0.0-2.0); EOSINOPHILS ABSOLUTE AUTO 0.12 K/uL (0.00-0.50); EOSINOPHILS PERCENT AUTO 1.6 % (0.0-5.0); HEMATOCRIT 41.2 % (34.0-46.0); HEMOGLOBIN 14.3 g/dL (11.7-15.5); IMMATURE GRAN ABSOLUTE AUTO 0.08 10^3/uL (0.00-0.04); IMMATURE GRAN PERCENT AUTO 1.1 % (0.0-0.4); LYMPHOCYTES ABSOLUTE AUTO 2.72 K/uL (0.50-3.50); LYMPHOCYTES PERCENT AUTO 36.9 % (10.0-50.0); MEAN CORPUSCULAR HGB CONC 34.7 g/dL (31.7-36.0); MEAN CORPUSCULAR VOLUME 89.4 fL (84.0-98.0); MONOCYTES ABSOLUTE AUTO 0.39 K/uL (0.00-1.00); MONOCYTES PERCENT AUTO 5.3 % (2.0-14.0); NEUTROPHILS PERCENT AUTO 54.3 % (45.0-80.0); PLATELET COUNT,PLT 249 K/uL (150-350); RED BLOOD CELL COUNT 4.61 M/uL (3.77-5.09); RED CELL DISTRIBUTION WIDTH 12.9 % (11.2-14.1); WHITE BLOOD CELL COUNT,WBC 7.4 K/uL (4.0-10.2)
[2024-06-21 10:30] LABS: BILIRUBIN,URINE NEGATIVE (NEGATIVE); COLOR,URINE YELLOW; GLUCOSE,URINE NEGATIVE (NEGATIVE); KETONES,URINE NEGATIVE (NEGATIVE); LEUKOCYTE ESTERASE,URINE NEGATIVE (NEGATIVE); NITRITE,URINE NEGATIVE (NEGATIVE); OCCULT BLOOD,URINE TRACE-INTACT (NEGATIVE); PH,URINE 5.5 (5.0-9.0); PROTEIN,URINE NEGATIVE (NEGATIVE); UROBILINOGEN,URINE 0.2 E.U./dL (0.2-1.0)
[2024-06-21 10:31] LABS: APPEARANCE,URINE SLIGHTLY CLOUDY
[2024-06-21 10:42] LABS: BACTERIA,URINE RARE /HPF (NONE TO FEW); EPITHELIAL CELLS,URINE RARE /LPF; RBC,URINE 0-5 /HPF; WBC,URINE 0-5 /HPF
[2024-06-21 10:43] LABS: ALANINE AMINOTRANSFERASE,ALT 29 U/L (12-78); ALBUMIN 3.6 g/dL (3.4-5.0); ALKALINE PHOSPHATASE 73 IU/L (46-116); ASPARTATE AMNIOTRANSFERASE,AST 13 U/L (15-37); BILIRUBIN TOTAL 0.3 mg/dL (0.2-1.0); BLOOD UREA NITROGEN,BUN 15 mg/dL (7-18); C-REACTIVE PROTEIN 1.04 mg/dL (0.05-0.30); CALCIUM 8.7 mg/dL (8.5-10.1); CARBON DIOXIDE,CO2 25.9 mmol/L (21.0-32.0); CHLORIDE,CL 101 mmol/L (98-107); CREATININE 0.76 mg/dL (0.51-1.17); EST CRCL DRUG DOSING (CG) 79.87 mL/min; GLUCOSE RANDOM 103 mg/dL (70-99); MAGNESIUM 1.8 mg/dL (1.8-2.4); POTASSIUM,K 3.7 mmol/L (3.5-5.1); PROTEIN TOTAL,TP 6.6 g/dL (6.4-8.2); SODIUM,NA 135 mmol/L (136-145)
[2024-06-21 10:44] LABS: ANION GAP 11.8 meq/L (7-15); ESTIMATED GFR 98 mL/min (>=60)
[2024-06-21] MEDS: Acetaminophen 500 MG Tab PO ONE (11:16)
[2024-06-21] MEDS: Ketorolac 30 MG/ML SDV IM ONE (11:17)
== END 2024-06-21 12:30 | disposition home or self-care (01) ==
LOC: LL.ED 09:28
DX: I10 Essential (primary) hypertension (principal); J44.89 Other specified chronic obstructive pulmonary disease; K21.9 Gastro-esophageal reflux disease without esophagitis; E03.9 Hypothyroidism, unspecified; F17.210 Nicotine dependence, cigarettes, uncomplicated; Z86.16 Personal history of COVID-19; Z90.49 Acquired absence of other specified parts of digestive tract; Z88.5 Allergy status to narcotic agent; Z88.8 Allergy status to other drugs, medicaments and biological substances; Z91.018 Allergy to other foods; Z79.890 Hormone replacement therapy; Z79.899 Other long term (current) drug therapy
CPT/HCPCS: 36415; 74022; 80053; 81001; 83735; 84443; 84484; 85025; 86140; 87428-QW; 93005; 93010; 96372; 99284; 99285; A9270-GY; J1885